=== PATIENT | male | born 1945 | race Caucasian/White ===

== ENCOUNTER 2016-03-08 07:36 | Outpatient (CLI) | payer MEDICARE | END 2016-03-08 07:37 | disposition home or self-care (01) | DX: I48.91 Unspecified atrial fibrillation (principal) ==

== ENCOUNTER 2017-05-26 08:00 | Outpatient (CLI) | payer MEDICARE ==
[2017-05-26 19:30] LABS: HB2 TOTAL 18.4 g/dL; HEMOGLOBIN A1C 0.96 g/dL; HEMOGLOBIN A1C % 6.9 % (4.6-6.2)
[2017-05-26 19:41] LABS: ALBUMIN 4.2 g/dL (3.2-5.5); ALBUMIN/GLOBULIN RATIO 1.2 (1.0-2.2); ALKALINE PHOSPHATASE 73 IU/L (42-121); ALT ALANINE AMINOTRANSFERASE 15 IU/L (10-60); AST ASPARTATE AMINOTRANSFERASE 27 IU/L (10-42); BILIRUBIN,TOTAL 0.8 mg/dL (0.2-1.0); BUN - BLOOD UREA NITROGEN 22 mg/dL (6-20); CALCIUM 9.4 mg/dL (8.5-10.3); CARBON DIOXIDE - CO2 26 mmol/L (21-32); CHLORIDE 101 mmol/L (101-111); CHOL/HDL RATIO 3.5 (<5.0); CHOLESTEROL 187 mg/dL; CREATININE 0.9 mg/dL (0.6-1.2); GFR - MDRD 83 (>89); GLUCOSE 146 mg/dL (70-100); HDL CHOLESTEROL 53 mg/dL; LDL CHOLESTEROL,CALCULATED 107 mg/dL; SODIUM 136 mmol/L (135-145); TOTAL PROTEIN 7.6 g/dL (6.7-8.2); VLDL CHOLESTEROL 27 mg/dL
[2017-05-27 13:59] LABS: HEPATITIS C ANTIBODY NON-REACTIVE (NON-REACTIVE)
== END 2017-05-26 08:01 | disposition home or self-care (01) ==
LOC: LAB.WCP 08:00
PROVIDERS: ATTEND Physician Assistant Medical
DX: E11.9 Type 2 diabetes mellitus without complications (principal); Z11.59 Encounter for screening for other viral diseases
CPT/HCPCS: 36415; 80053; 80061; 83036; 83721; 86803

== ENCOUNTER 2017-05-30 15:04 | Outpatient (CLI) | payer MEDICARE ==
[2017-05-30] MEDS ORDERED: IOPAMIDOL-300 100 ML VIAL ONE (15:23)
--- NOTE | 2017-05-30 16:04 | CT Report ---
CT CHEST WITH CONTRAST: 05/30/2017 CLINICAL INDICATION: Pulmonary nodule. COMPARISON: 06/19/2015, 12/05/2014. TECHNIQUE: Axial CT images of the chest were obtained with 80 mL Isovue 300 intravenously FINDINGS: The heart and great vessels demonstrate atherosclerotic calcifications. No hilar or mediastinal lymphadenopathy is present. The 6 mm nodule in the anterior right middle lobe is stable. Emphysema is stable. No new or enlarging pulmonary nodule is appreciated. No effusion or pneumothorax is present. Osseous structures demonstrate degenerative changes. Limited evaluation of the upper abdominal structures demonstrates normal adrenal glands. IMPRESSION: STABLE 6 MM NODULE IN THE ANTERIOR RIGHT MIDDLE LOBE. STABLE EMPHYSEMA. NO SIGNIFICANT INTERVAL CHANGE. TD: 05/30/2017 16:04
[2017-05-30] MEDS ORDERED: IOPAMIDOL-300 100 ML VIAL IVP ONE (16:12)
== END 2017-05-30 15:05 | disposition home or self-care (01) ==
LOC: DI 15:04
PROVIDERS: ATTEND Physician Assistant Medical
DX: R91.1 Solitary pulmonary nodule (principal); J43.9 Emphysema, unspecified
CPT/HCPCS: 71260; Q9967

== ENCOUNTER 2017-09-02 08:38 | Outpatient (CLI) | payer MEDICARE ==
[2017-09-02 14:09] LABS: HB2 TOTAL 16.5 g/dL; HEMOGLOBIN A1C 1.09 g/dL; HEMOGLOBIN A1C % 8.2 % (4.6-6.2)
[2017-09-02 14:10] LABS: ALBUMIN/GLOBULIN RATIO 1.2 (1.0-2.2); ALKALINE PHOSPHATASE 81 IU/L (42-121); ALT ALANINE AMINOTRANSFERASE 18 IU/L (10-60); AST ASPARTATE AMINOTRANSFERASE 25 IU/L (10-42); BILIRUBIN,TOTAL 0.9 mg/dL (0.2-1.0); BUN - BLOOD UREA NITROGEN 17 mg/dL (6-20); CALCIUM 9.4 mg/dL (8.5-10.3); CARBON DIOXIDE - CO2 26 mmol/L (21-32); CHLORIDE 99 mmol/L (101-111); CHOL/HDL RATIO 3.8 (<5.0); CHOLESTEROL 182 mg/dL; CREATININE 0.9 mg/dL (0.6-1.2); GFR - MDRD 83 (>89); GLUCOSE 158 mg/dL (70-100); HDL CHOLESTEROL 48 mg/dL; LDL CHOLESTEROL,CALCULATED 113 mg/dL; LDL/HDL RATIO 2.4 (<3.6); SODIUM 137 mmol/L (135-145); TOTAL PROTEIN 7.4 g/dL (6.7-8.2); VLDL CHOLESTEROL 21 mg/dL
== END 2017-09-02 08:39 | disposition home or self-care (01) ==
LOC: LAB.WCP 08:38
PROVIDERS: ATTEND Physician Assistant Medical
DX: E11.9 Type 2 diabetes mellitus without complications (principal)
CPT/HCPCS: 36415; 80053; 80061; 83036; 83721

== ENCOUNTER 2018-10-06 13:51 | Outpatient (CLI) | payer MEDICARE | END 2018-10-06 13:52 | disposition EMS.NT | LOC: EMS 13:51 | PROVIDERS: ATTEND Surgery | DX: Z03.89 Encounter for observation for other suspected diseases and conditions ruled out (principal) ==

== ENCOUNTER 2019-04-18 13:11 | Outpatient (CLI) | payer MEDICARE, MEDICAID | END 2019-04-18 23:59 | disposition short-term general hospital (02) | LOC: EMS 13:11 | PROVIDERS: ATTEND Surgery | DX: R06.02 Shortness of breath (principal); R07.9 Chest pain, unspecified | CPT/HCPCS: A0425; A0427 ==

== ENCOUNTER 2019-05-02 13:53 | Outpatient (CLI) | payer MEDICARE, MEDICAID ==
[2019-05-02 18:17] LABS: BASOPHILS # (AUTO) 0.1 10^3/uL (0.0-0.1); BASOPHILS % (AUTO) 0.4 %; EOSINOPHILS # (AUTO) 0.2 10^3/uL (0.0-0.7); EOSINOPHILS % (AUTO) 1.7 %; HGB - HEMOGLOBIN 14.1 g/dL (14.0-18.0); LYMPHOCYTES # (AUTO) 2.3 10^3/uL (1.5-3.5); LYMPHOCYTES % (AUTO) 19.7 %; MEAN CORPUSCULAR HEMOGLOBIN 28.6 pg (27.0-31.0); MEAN CORPUSCULAR HGB CONC 31.8 g/dL (32.0-36.0); MEAN CORPUSCULAR VOLUME 90.1 fL (80.0-94.0); MEAN PLATELET VOLUME 10.4 fL (7.4-11.4); MONOCYTES # (AUTO) 0.9 10^3/uL (0.0-1.0); MONOCYTES % (AUTO) 7.9 %; NEUTROPHILS % (AUTO) 69.6 %; PLT - PLATELET COUNT 327 10^3/uL (130-450); RED BLOOD COUNT 4.93 10^6/uL (4.70-6.10); RED CELL DISTRIBUTION WIDTH 13.8 % (12.0-15.0); WHITE BLOOD COUNT 11.4 x10^3/uL (4.8-10.8)
== END 2019-05-02 23:59 | disposition home or self-care (01) ==
LOC: LAB.WCP 13:53
PROVIDERS: ATTEND Physician Assistant Medical
DX: J44.9 Chronic obstructive pulmonary disease, unspecified (principal)
CPT/HCPCS: 36415; 85025

== ENCOUNTER 2019-05-21 15:52 | Outpatient (CLI) | payer MEDICARE, MEDICAID | END 2019-05-21 15:53 | disposition home or self-care (01) | LOC: COV 15:52 | PROVIDERS: ATTEND Family Medicine | DX: R05 Cough (principal); R50.9 Fever, unspecified | CPT/HCPCS: 81599 ==

== ENCOUNTER 2020-02-20 13:18 | Outpatient (CLI) | payer MEDICARE, MEDICAID ==
--- OUTSIDE RECORDS SUMMARY | 2020-02-27 00:54 | EXTERNAL MEDICAL SUMMARY RPT | Continuity of Care Document ---
:1945 Demographics Phone Unavailable Preferred Language Unknown Marital Status Unknown Orthodox Affiliation Unknown Race Unknown Ethnic Group Unknown Author Organization [place] Address [address] [place] [address] Phone Care Team Providers Name Role Phone PA-C Unavailable Unavailable Young Unavailable Unavailable Problems date description facility 2020-02-20 13:37 TYPE 2 DIABETES MELLITUS WITH [facility] HYPERGLYCEMIA 2020-02-20 13:37 NICOTINE DEPENDENCE, UNSPECIFIED, [facility] UNCOMPLICATED 2020-02-20 13:37 ESSENTIAL (PRIMARY) HYPERTENSION [facility] 2020-02-20 13:37 LEFT BUNDLE-BRANCH BLOCK, [facility] UNSPECIFIED 2020-02-20 13:37 SIMPLE CHRONIC BRONCHITIS [facility] 2020-02-20 13:37 SPONDYLOSIS W/O MYELOPATHY OR [facility] RADICULOPATHY, CERVI 2020-02-20 13:37 VERY LOW LEVEL OF PERSONAL HYGIENE [facility] 2020-02-20 13:37 WEAKNESS [facility] 2020-02-20 13:37 OTHER SPECIFIED ABNORMAL FINDINGS [facility]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 2020-02-20 13:37 CONTACT WITH AND (SUSPECTED) [facility] EXPOSURE TO COVID-19 Allergies date description facility Keflex [facility] LEVOFLOXACIN [facility] METRONIDAZOLE [facility] MORPHINE [facility] NO KNOWN ENVIRONMENTAL ALLERGIES [facility] PENICILLINS [facility] SULFA ANTIBIOTICS [facility] PENICILLINS [facility] NO KNOWN ALLERGIES [facility] PREGABALIN [facility] ADHESIVE \T\ TAPE [facility] NO KNOWN ENVIRONMENTAL ALLERGIES [facility] PENICILLINS [facility] Medications date description facility null [facility] null [facility] ZOLPIDEM TARTRATE [facility] ZOLPIDEM TARTRATE [facility] Results Social History date description facility [id number]
== END 2020-02-20 13:19 | disposition critical access hospital (66) ==
LOC: EMS 13:18
PROVIDERS: ATTEND Surgery
DX: R53.1 Weakness (principal); R35.0 Frequency of micturition
CPT/HCPCS: A0425; A0427

== ENCOUNTER 2020-02-20 13:37 | Emergency (ER) | payer MEDICARE, MEDICAID ==
[2020-02-20] MEDS ORDERED: IPRATROPIUM/ALBUTEROL 3 ML NEB INH STA (14:01)
[2020-02-20 14:03] LABS: BILIRUBIN,URINE NEGATIVE (NEGATIVE); GLUCOSE, URINE (UA) >=1000 mg/dL (NEGATIVE); KETONES,URINE (UA) NEGATIVE (NEGATIVE); LEUKOCYTE ESTERASE, URINE NEGATIVE (NEGATIVE); NITRITE,URINE NEGATIVE (NEGATIVE); OCCULT BLOOD,URINE SMALL (NEGATIVE); PROTEIN,URINE 100 mg/dL (NEGATIVE); UROBILINOGEN,URINE 0.2 (NORMAL) E.U./dL (NORMAL)
--- NOTE | 2020-02-20 14:03 | ED Physician Documentation ---
History of Present Illness - Stated complaint Stated Complaint: GLF - History obtained from History obtained from: Patient, EMS - Additonal information Additional information: Gentleman with COPD and diabetes although not on any meds for his diabetes presents from home where he lives with son and multiple relatives. He has had progressive weakness over months more acutely over weeks to days and today sort of crumpled down on the floor and could not get up without injury. He has no specific complaints except for chronic back and elbow pain. He does feel like he is breathing worse than normal. His meds accompany him and were reviewed, he is on a bunch of supplements, the only prescription medication is zolpidem. Nothing for his diabetes. Prehospital blood sugar was 356. Review of Systems Ten Systems: 10 systems reviewed and negative Constitutional: reports: Fatigue Cardiac: denies: Chest pain / pressure Respiratory: reports: Dyspnea, Cough GI: denies: Abdominal Pain, Nausea, Vomiting PD PAST MEDICAL HISTORY - Present Medications Home Medications: Ambulatory Orders Medication Instructions Recorded Confirmed Lisinopril [Prinivil] 10 mg PO DAILY #30 tablet 02/20/20 metFORMIN [Glucophage] 500 mg PO BIDWM #60 tablet 02/20/20 PD ED PE NORMAL - Vitals Vital signs reviewed: Yes - General General: Alert and oriented X 3, No acute distress, Other (Unkempt with a long hastings and smells of urine.) - HEENT HEENT: PERRL, EOMI, Pharynx benign - Neck Neck: Supple, no meningeal sign, No bony TTP - Cardiac Cardiac: RRR, No murmur, Other (Somewhat difficult to hear heart sounds over r honchorous and wheezy breath sounds.) - Respiratory Respiratory: No respiratory distress, Other (rhonchorous/wheezy) - Abdomen Abdomen: Soft, Non tender - Back Back: No CVA TTP, No spinal TTP - Derm Derm: Normal color, No rash - Extremities Extremities: No edema, No calf tenderness / cord, Other (Poor capillary refill in the feet but bounding pedal pulses) - Neuro Neuro: Alert and oriented X 3, No motor deficit, No sensory deficit, Normal speech, Other (Some difficulty lifting his legs off the bed due to weakness but can get them up and hold him up for 5 seconds.) Eye Opening: Spontaneous Motor: Obeys Commands Verbal: Oriented GCS Score: 15 - Psych Psych: Normal mood, Normal affect Results - Vitals Vitals: Vital Signs - 24 hr 02/20/20 02/20/20 02/20/20 14:04 14:31 16:27 Temperature 37.1 C 36.7 C Heart Rate 80 82 87 Respiratory 22 16 18 Rate Blood Pressure 179/129 H 181/137 H O2 Saturation 97 95 02/20/20 19:04 Temperature 36.3 C L Heart Rate 88 Respiratory 18 Rate Blood Pressure 163/113 H O2 Saturation 95 Oxygen O2 Source Room air - EKG (time done) 1352 Rate: Rate (enter#) (86) Rhythm: NSR [place]: Normal Intervals: LBBB (incomplete) QRS: Normal Ischemia: Normal ST segments Computer interpretation: Agree with computer - Labs Labs: Laboratory Tests 02/20/20 02/20/20 02/20/20 13:50 14:10 14:10 WBC 10.7 RBC 5.43 Hgb 16.2 Hct 48.8 MCV 89.9 MCH 29.8 MCHC 33.2 RDW 12.7 Plt Count 261 MPV 9.7 Neut # (Auto) 7.3 H Lymph # (Auto) 2.0 [place] # (Auto) 0.9 Eos # (Auto) 0.4 Baso # (Auto) 0.1 Absolute Nucleated RBC 0.00 Nucleated RBC % 0.0 VBG pH VBG pCO2 VBG pO2 VBG HCO3 VBG Total CO2 VBG O2 Saturation VBG Base Excess Sodium 139 Potassium 3.8 Chloride 97 L Carbon Dioxide 31 Anion Gap 11.0 BUN 19 Creatinine 1.1 Estimated GFR (MDRD) 66 L Glucose 320 H Calcium 9.4 Magnesium 1.6 L Total Bilirubin 0.3 AST 27 ALT 25 Alkaline Phosphatase 95 Total Creatine Kinase 327 H Troponin I High Sens Total Protein 7.2 Albumin 3.8 Globulin 3.4 Albumin/Globulin Ratio 1.1 Lipase 92 H Urine Color YELLOW Urine Clarity CLEAR Urine pH 7.0 Ur Specific Cash 1.020 Urine Protein 100 H Urine Glucose (UA) >=1000 H Urine Ketones NEGATIVE Urine Occult Blood SMALL H Urine Nitrite NEGATIVE Urine Bilirubin NEGATIVE Urine Urobilinogen 0.2 (NORMAL) Ur Leukocyte Esterase NEGATIVE Urine RBC 0-5 Urine WBC 0-3 Ur Squamous Epith Cells RARE Squamous Urine Bacteria Rare Urine Mucus Few Strands Ur Microscopic Review INDICATED Urine Culture Comments NOT INDICATED Nasal Adenovirus (PCR) Nasal B. parapertussis DNA (PCR) Nasal Coronavir 229E PCR Nasal Coronavir HKU1 PCR Nasal Coronavir NL63 PCR Nasal Coronavir OC43 PCR Nasal Enterovir/Rhinovir PCR Nasal Influenza B PCR Nasal Influenza A PCR Nasal Parainfluen 1 PCR Nasal Parainfluen 2 PCR Nasal Parainfluen 3 PCR Nasal Parainfluen 4 PCR Nasal RSV (PCR) Nasal B.pertussis DNA PCR Nasal C.pneumoniae (PCR) Campos Human Metapneumo PCR Nasal M.pneumoniae (PCR) Nasal SARS-CoV-2 (PCR) 02/20/20 02/20/20 02/20/20 14:10 14:17 14:30 WBC RBC Hgb Hct MCV MCH MCHC RDW Plt Count MPV Neut # (Auto) Lymph # (Auto) [place] # (Auto) Eos # (Auto) Baso # (Auto) Absolute Nucleated RBC Nucleated RBC % VBG pH 7.361 VBG pCO2 54.2 H VBG pO2 31.1 VBG HCO3 30.0 H VBG Total CO2 31.7 H VBG O2 Saturation 65.0 VBG Base Excess 3.2 H Sodium Potassium Chloride Carbon Dioxide Anion Gap BUN Creatinine Estimated GFR (MDRD) Glucose Calcium Magnesium Total Bilirubin AST ALT Alkaline Phosphatase Total Creatine Kinase Troponin I High Sens 41.7 H* Total Protein Albumin Globulin Albumin/Globulin Ratio Lipase Urine Color Urine Clarity Urine pH Ur Specific Cash Urine Protein Urine Glucose (UA) Urine Ketones Urine Occult Blood Urine Nitrite Urine Bilirubin Urine Urobilinogen Ur Leukocyte Esterase Urine RBC Urine WBC Ur Squamous Epith Cells Urine Bacteria Urine Mucus Ur Microscopic Review Urine Culture Comments Nasal Adenovirus (PCR) NOT DETECTED Nasal B. parapertussis DNA (PCR) NOT DETECTED Nasal Coronavir 229E PCR NOT DETECTED Nasal Coronavir HKU1 PCR NOT DETECTED Nasal Coronavir NL63 PCR NOT DETECTED Nasal Coronavir OC43 PCR NOT DETECTED Nasal Enterovir/Rhinovir PCR NOT DETECTED Nasal Influenza B PCR NOT DETECTED Nasal Influenza A PCR NOT DETECTED Nasal Parainfluen 1 PCR NOT DETECTED Nasal Parainfluen 2 PCR NOT DETECTED Nasal Parainfluen 3 PCR NOT DETECTED Nasal Parainfluen 4 PCR NOT DETECTED Nasal RSV (PCR) NOT DETECTED Nasal B.pertussis DNA PCR NOT DETECTED Nasal C.pneumoniae (PCR) NOT DETECTED Campos Human Metapneumo PCR NOT DETECTED Nasal M.pneumoniae (PCR) NOT DETECTED Nasal SARS-CoV-2 (PCR) NOT DETECTED 01/06/21 16:27 WBC RBC Hgb Hct MCV MCH MCHC RDW Plt Count MPV Neut # (Auto) Lymph # (Auto) [place] # (Auto) Eos # (Auto) Baso # (Auto) Absolute Nucleated RBC Nucleated RBC % VBG pH VBG pCO2 VBG pO2 VBG HCO3 VBG Total CO2 VBG O2 Saturation VBG Base Excess Sodium Potassium Chloride Carbon Dioxide Anion Gap BUN Creatinine Estimated GFR (MDRD) Glucose Calcium Magnesium Total Bilirubin AST ALT Alkaline Phosphatase Total Creatine Kinase Troponin I High Sens 43.3 H* Total Protein Albumin Globulin Albumin/Globulin Ratio Lipase Urine Color Urine Clarity Urine pH Ur Specific Cash Urine Protein Urine Glucose (UA) Urine Ketones Urine Occult Blood Urine Nitrite Urine Bilirubin Urine Urobilinogen Ur Leukocyte Esterase Urine RBC Urine WBC Ur Squamous Epith Cells Urine Bacteria Urine Mucus Ur Microscopic Review Urine Culture Comments Nasal Adenovirus (PCR) Nasal B. parapertussis DNA (PCR) Nasal Coronavir 229E PCR Nasal Coronavir HKU1 PCR Nasal Coronavir NL63 PCR Nasal Coronavir OC43 PCR Nasal Enterovir/Rhinovir PCR Nasal Influenza B PCR Nasal Influenza A PCR Nasal Parainfluen 1 PCR Nasal Parainfluen 2 PCR Nasal Parainfluen 3 PCR Nasal Parainfluen 4 PCR Nasal RSV (PCR) Nasal B.pertussis DNA PCR Nasal C.pneumoniae (PCR) Campos Human Metapneumo PCR Nasal M.pneumoniae (PCR) Nasal SARS-CoV-2 (PCR) PD MEDICAL DECISION MAKING - ED course ED course: [employer] respiratory panel ordered to rapidly test specifically for COVID-19 in this patient who is expected to be hospitalized 74yo gentleman with COPD and untreated diabetes presents the emergency department with generalized weakness and some shortness of breath consistent with COPD. He denies chest pain. Work-up demonstrates normal CBC, mild CO2 retention without evidence of acuity, elevated blood sugar and borderline troponin. I offered hospitalization for observation especially in light of the borderline troponin, he refused. We agreed at least to repeat the troponin after couple of hours and to have him talk with social work about everything that is been going on and his weakness. He also is found to have significant degenerative disease in his neck with multiple levels of disc space narrowing which may be contributing to his weakness. That said he does not appear to be particularly weak here, he is able to sit up without assistance, sit up on the side of the bed then. His family, specifically his son and [id number] arrived. They are his caregivers and have been since taking him in from homelessness 4 years ago. He really does not go to the doctor ever, continues to smoke heavily, not pay attention to his diabetes at all by taking medications or controlling his diet. I asked him when he last showered and he said a week or 2 ago, the son said it was September of last year. Prior to that it had probably been another year. APS is already involved. The son is frustrated and fed up. Does not really want to care for him anymore. The patient seems uninvolved in his own self interest in care but does seem competent to make decisions. A 2nd troponin was done and basically flat. He obviously needs long-term blood pressure control, diabetes control, and to quit smoking. Social work is working with him. Patient was uninterested in any disposition other than going home. His son is fed up with him but will take him back in. See PHYTOPATHOLOGIST notes. Departure - Departure Disposition: Home, Self Care Clinical Impression: Weakness, Uncontrolled hypertension, Tobacco abuse, Deficit of personal bathing and hygiene COPD (chronic obstructive pulmonary disease) Qualifiers: COPD type: chronic bronchitis Chronic bronchitis type: simple Qualified Code(s): J41.0 - Simple chronic bronchitis Uncontrolled diabetes mellitus Qualifiers: Diabetes mellitus type: type 2 Glycemic state: with hyperglycemia Qualified Code(s): E11.65 - Type 2 diabetes mellitus with hyperglycemia Condition: Stable Record reviewed to determine appropriate education?: Yes Instructions: COPD Dc, ED Hyperglycemia Diabetic Follow-Up: Maribel Blue ARNP, [employer] [Credentialed Staff Provider] - Prescriptions: metFORMIN [Glucophage] 500 mg PO BIDWM #60 tablet Lisinopril [Prinivil] 10 mg PO DAILY #30 tablet Comments: Our on-call provider for follow-up today is listed on this form. Call her tomorrow to arrange for next available follow-up appointment. It is important to quit smoking, recommend bathing at least occasionally. Returning as needed if worse or for new symptoms develop. Also recommend quit smoking. Discharge Date/Time: 02/20/20 19:05
[2020-02-20 14:15] LABS: BACTERIA,URINE Rare /HPF (None Seen); CLARITY,URINE CLEAR (CLEAR); MUCUS,URINE Few Strands; RBC,URINE 0-5 /HPF (0-5); SQUAMOUS EPITHELIAL CELL,UR RARE Squamous (<= Few); WBC,URINE 0-3 /HPF (0-3)
[2020-02-20 14:20] LABS: BASOPHILS # (AUTO) 0.1 10^3/uL (0.0-0.1); EOSINOPHILS # (AUTO) 0.4 10^3/uL (0.0-0.7); EOSINOPHILS % (AUTO) 3.3 %; HCT - HEMATOCRIT 48.8 % (42.0-52.0); HGB - HEMOGLOBIN 16.2 g/dL (14.0-18.0); LYMPHOCYTES % (AUTO) 18.9 %; MEAN CORPUSCULAR HEMOGLOBIN 29.8 pg (27.0-31.0); MEAN CORPUSCULAR HGB CONC 33.2 g/dL (32.0-36.0); MEAN CORPUSCULAR VOLUME 89.9 fL (80.0-94.0); MEAN PLATELET VOLUME 9.7 fL (7.4-11.4); MONOCYTES # (AUTO) 0.9 10^3/uL (0.0-1.0); MONOCYTES % (AUTO) 8.1 %; NEUTROPHILS # (AUTO) 7.3 10^3/uL (1.5-6.6); NEUTROPHILS % (AUTO) 68.4 %; PLT - PLATELET COUNT 261 10^3/uL (130-450); RED BLOOD COUNT 5.43 10^6/uL (4.70-6.10); RED CELL DISTRIBUTION WIDTH 12.7 % (12.0-15.0); WHITE BLOOD COUNT 10.7 x10^3/uL (4.8-10.8)
[2020-02-20 14:26] LABS: VBG PCO2 54.2 mmHg (41-51); VBG PH 7.361 (7.31-7.41); VBG PO2 31.1 mmHg (25-47); VBG TOTAL CO2 31.7 mmol/L (24-29)
[2020-02-20 14:27] LABS: VBG BASE EXCESS 3.2 mmol/L (-2 - +2)
--- NOTE | 2020-02-20 14:32 | XRAY Report ---
PROCEDURE: Chest 1 View X-Ray INDICATIONS: weak, dyspnea TECHNIQUE: One view of the chest was acquired. COMPARISON: CT chest 05/30/2017. CXR 05/26/2017. FINDINGS: Surgical changes and devices: None. Lungs and pleura: No pleural effusions or pneumothorax. Lungs appear clear. Emphysematous change. Mediastinum: Mediastinal contours appear normal. Heart size is normal. Bones and chest wall: No suspicious bony lesions. Overlying soft tissues appear unremarkable. IMPRESSION: No acute cardiopulmonary abnormality identified. Reviewed by: Javan South MD on 02/20/2020 1:31 PM [facility] Approved by: Javan South MD on 02/20/2020 1:31 PM [facility] Station ID: [id number]
[2020-02-20 14:53] LABS: ALBUMIN 3.8 g/dL (3.2-5.5); ALBUMIN/GLOBULIN RATIO 1.1 (1.0-2.2); BILIRUBIN,TOTAL 0.3 mg/dL (0.2-1.0); CALCIUM 9.4 mg/dL (8.5-10.3); CREATININE 1.1 mg/dL (0.6-1.2); MAGNESIUM 1.6 mg/dL (1.7-2.8); POTASSIUM 3.8 mmol/L (3.5-5.0); TOTAL PROTEIN 7.2 g/dL (6.7-8.2)
--- NOTE | 2020-02-20 15:17 | CT Report ---
PROCEDURE: HEAD WO INDICATIONS: fall, weakness TECHNIQUE: Noncontrast 4.5 mm thick angled axial sections acquired from the foramen magnum to the vertex. For r adiation dose reduction, the following was used: automated exposure control, adjustment of mA and/or kV according to patient size. COMPARISON: Correlation is made with the accompanying cervical spine CT, 02/20/2020. FINDINGS: Image quality: Excellent. CSF spaces: Basal cisterns are patent. No extra-axial fluid collections. Ventricles are normal in size and shape. Brain: No midline shift. No intracranial masses or hemorrhage. Luis-white matter interface is norm al. Skull and face: Calvarium and visualized facial bones are intact, without suspicious lesions. Sinuses: Visualized sinuses and mastoids are clear. IMPRESSION: No intracranial hemorrhage is seen. No significant intracranial abnormality is seen. If there is strong clinical concern for a stroke, please consider a dedicated brain MRI for further e valuation (assuming that there is no contraindication to MRI). Reviewed by: Reza Sandhu MD on 02/20/2020 2:[address] [facility] Approved by: Reza Sandhu MD on 02/20/2020 2:[address] [facility] Station ID: [id number]
--- NOTE | 2020-02-20 15:19 | CT Report ---
PROCEDURE: CERVICAL SPINE WO INDICATIONS: fall, weakness TECHNIQUE: Noncontrast 3 mm thick sections acquired from the skull base to the T4 level. Sagittal and coronal r eformats were then constructed. For radiation dose reduction, the following was used: automated exp osure control, adjustment of mA and/or kV according to patient size. COMPARISON: Correlation is made with the accompanying head CT 02/20/2020. Correlation is also made w ith the accompanying chest films, 02/20/2020. FINDINGS: Image quality: Excellent. Bones: No fractures or dislocations. Visualized superior ribs are intact. Advanced degenerative changes are seen. There is at least moderate disc space narrowing seen at the C 3-C4 level, with moderate to severe disc space narrowing at C4-C5, C5-C6, C6-C7, and C7-T1. Posterior directed endplate osteophytes are seen, which are worst at C5-C6. Bridging anterior osteophytes are seen from at least C4-T1. Focal degenerative change can also be seen involving the C1-C2 interface an teriorly. Soft tissues: Prevertebral soft tissues are normal in thickness. No paravertebral hematomas. No ap ical pneumothoraces. Dense episodic calcification can be seen involving the carotid bifurcation rob ons. IMPRESSION: No acute fractures are seen. Advanced degenerative changes are seen. Reviewed by: Reza Sandhu MD on 02/20/2020 2:17 PM [facility] Approved by: Reza Sandhu MD on 02/20/2020 2:17 PM [facility] Station ID: [id number]
[2020-02-20 17:56] LABS: B. PARAPERTUSSIS- RESP PCR PAN NOT DETECTED; B. PERTUSSIS- RESP PCR PANEL NOT DETECTED; C. PNEUMONIAE- RESP PCR PANEL NOT DETECTED; CORONAVIRUS 229E-RESP PCR NOT DETECTED; CORONAVIRUS HKU1-RESP PCR NOT DETECTED; CORONAVIRUS NL63-RESP PCR NOT DETECTED; CORONAVIRUS OC43-RESP PCR NOT DETECTED; HUMAN METAPNEUMOVIRUS NOT DETECTED; INFLUENZA A- RESP PCR PANEL NOT DETECTED; INFLUENZA B - RESP PCR PANEL NOT DETECTED; M. PNEUMONIAE- RESP PCR PANEL NOT DETECTED; PARAINFLUENZA VIRUS 1 NOT DETECTED; PARAINFLUENZA VIRUS 2 NOT DETECTED; PARAINFLUENZA VIRUS 3 NOT DETECTED; PARAINFLUENZA VIRUS 4 NOT DETECTED; RHINOVIRUS/ENTEROVIRUS NOT DETECTED; RSV- RESP PCR PANEL NOT DETECTED; SARS-CoV-2 -RESP PCR PANEL NOT DETECTED
[2020-02-20 19:05] VITALS: BP 163/113
--- OUTSIDE RECORDS SUMMARY | 2020-02-27 00:47 | EXTERNAL MEDICAL SUMMARY RPT | Continuity of Care Document ---
:1945 Demographics Phone Unavailable Preferred Language Unknown Marital Status Unknown Scientologist Affiliation Unknown Race Unknown Ethnic Group Unknown Author Organization [place] Address [address] [place] [address] Phone Care Team Providers Name Role Phone Young Unavailable Unavailable PA-C Unavailable Unavailable Problems date description facility 2020-02-20 13:37 TYPE 2 DIABETES MELLITUS WITH [facility] HYPERGLYCEMIA 2020-02-20 13:37 NICOTINE DEPENDENCE, UNSPECIFIED, [facility] UNCOMPLICATED 2020-02-20 13:37 ESSENTIAL (PRIMARY) HYPERTENSION [facility] 2020-02-20 13:37 LEFT BUNDLE-BRANCH BLOCK, [facility] UNSPECIFIED 2020-02-20 13:37 SIMPLE CHRONIC BRONCHITIS [facility] 2020-02-20 13:37 SPONDYLOSIS W/O MYELOPATHY OR [facility] RADICULOPATHY, CERVI 2020-02-20 13:37 VERY LOW LEVEL OF PERSONAL HYGIENE [facility] 2020-02-20 13:37 WEAKNESS [facility] 2020-02-20 13:37 OTHER SPECIFIED 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 2020-02-20 13:37 CONTACT WITH AND (SUSPECTED) [facility] EXPOSURE TO COVID-19 Allergies date description facility Keflex [facility] LEVOFLOXACIN [facility] METRONIDAZOLE [facility] MORPHINE [facility] NO KNOWN ENVIRONMENTAL ALLERGIES [facility] PENICILLINS [facility] SULFA ANTIBIOTICS [facility] PENICILLINS [facility] NO KNOWN ALLERGIES [facility] PREGABALIN [facility] ADHESIVE \T\ TAPE [facility] NO KNOWN ENVIRONMENTAL ALLERGIES [facility] PENICILLINS [facility] Medications [facility] description facility null [facility] null [facility] ZOLPIDEM TARTRATE [facility] ZOLPIDEM TARTRATE [facility] Results Social History date description facility [id number]
== END 2020-02-20 19:05 | disposition home or self-care (01) ==
LOC: EDUNIT# → ED 13:37
DX: R53.1 Weakness (principal); I10 Essential (primary) hypertension; J41.0 Simple chronic bronchitis; F17.200 Nicotine dependence, unspecified, uncomplicated; E11.65 Type 2 diabetes mellitus with hyperglycemia; Z20.822 Contact with and (suspected) exposure to COVID-19; R46.0 Very low level of personal hygiene; R79.89 Other specified abnormal findings of blood chemistry; I44.7 Left bundle-branch block, unspecified; M47.812 Spondylosis without myelopathy or radiculopathy, cervical region
CPT/HCPCS: 0202U; 36415; 80053; 81001; 81003; 82550; 82803; 83690; 83735; 84484; 85025; 87086; 93005; 94640; 99284; 99285

== ENCOUNTER 2020-07-03 08:00 | Outpatient (CLI) | payer MEDICARE, MEDICAID ==
[2020-07-03 18:09] LABS: ALBUMIN 3.5 g/dL (3.2-5.5); ALKALINE PHOSPHATASE 110 IU/L (42-121); ALT ALANINE AMINOTRANSFERASE 15 IU/L (10-60); AST ASPARTATE AMINOTRANSFERASE 25 IU/L (10-42); BILIRUBIN,TOTAL 0.8 mg/dL (0.2-1.0); BUN - BLOOD UREA NITROGEN 20 mg/dL (6-20); CALCIUM 9.7 mg/dL (8.5-10.3); CARBON DIOXIDE - CO2 26 mmol/L (21-32); CHLORIDE 101 mmol/L (101-111); CHOL/HDL RATIO 4.5 (<5.0); CHOLESTEROL 216 mg/dL; GFR - MDRD 73 (>89); GLUCOSE 340 mg/dL (70-100); HDL CHOLESTEROL 48 mg/dL; LDL CHOLESTEROL,CALCULATED 151 mg/dL; LDL/HDL RATIO 3.1 (<3.6); POTASSIUM 4.8 mmol/L (3.5-5.0); SODIUM 139 mmol/L (135-145); TOTAL PROTEIN 7.1 g/dL (6.7-8.2); TRIGLYCERIDES 87 mg/dL; VLDL CHOLESTEROL 17 mg/dL
[2020-07-03 18:19] LABS: THYROID STIMULATING HORMONE 1.85 uIU/mL (0.34-5.60)
== END 2020-07-03 23:59 | disposition home or self-care (01) ==
LOC: LAB.WCP 08:00
PROVIDERS: ATTEND Physician Assistant Medical
DX: E11.9 Type 2 diabetes mellitus without complications (principal); I48.0 Paroxysmal atrial fibrillation; R91.8 Other nonspecific abnormal finding of lung field
CPT/HCPCS: 36415; 80053; 80061; 82043; 82570; 83036; 83721; 84443; 85025

== ENCOUNTER 2020-09-12 10:11 | Outpatient (CLI) | payer MEDICARE, MEDICAID | END 2020-09-12 10:12 | disposition EMS.NT | LOC: EMS 10:11 | DX: Z03.89 Encounter for observation for other suspected diseases and conditions ruled out (principal) ==

== ENCOUNTER 2020-10-10 11:05 | Outpatient (CLI) | payer MEDICARE, MEDICAID | END 2020-10-10 11:06 | disposition critical access hospital (66) | LOC: EMS 11:05 | DX: R41.82 Altered mental status, unspecified (principal) | CPT/HCPCS: A0425; A0427 ==

== ENCOUNTER 2020-10-10 11:25 | Inpatient (IN) | payer MEDICARE, MEDICAID ==
--- NOTE | 2020-10-10 11:45 | ED Physician Documentation ---
PD HPI SKIN - Stated complaint Stated Complaint: SICK - History obtained from History obtained from: Patient, EMS PD PAST MEDICAL HISTORY - Present Medications Home Medications: Ambulatory Orders Medication Instructions Recorded Confirmed lisinopriL [Prinivil] 10 mg PO DAILY #30 tablet 02/20/20 metFORMIN [Glucophage] 500 mg PO BIDWM #60 tablet 02/20/20 Results - Vitals Vitals: Oxygen O2 Source Room air
--- NOTE | 2020-10-10 12:15 | ED Physician Documentation ---
History of Present Illness - Stated complaint Stated Complaint: SICK - History obtained from History obtained from: EMS - Additonal information Additional information: 75-year-old gentleman presents by ambulance from home. Reportedly he has been sitting in the same chair for the last 2 months and not moving. Today he became altered or at least we think it was today, family is not here and arrival. He has a sacral and calcaneal pressure ulcers. Was growing maggots in the buttocks. On my evaluation these have already been cleaned off as he has gone through the shower on the way in. He has a history of COPD and diabetes. Unclear if he is taking any medications but strongly presume medical noncompliance given the circumstances. Review of Systems Unable to obtain: Confused PD PAST MEDICAL HISTORY - Present Medications Home Medications: Ambulatory Orders Medication Instructions Recorded Confirmed lisinopriL [Prinivil] 10 mg PO DAILY #30 tablet 02/20/20 metFORMIN [Glucophage] 500 mg PO BIDWM #60 tablet 02/20/20 - Allergies Allergies/Adverse Reactions: Allergies Allergy/AdvReac Type Severity Reaction Status Date / Time No Known Drug Allergies Allergy Verified 10/10/20 12:36 PD ED PE NORMAL - Vitals Vital signs reviewed: Yes - General General: Other (He is alert and oriented to person and place but not time or events he appears ill, slightly encephalopathic.) - HEENT HEENT: PERRL, EOMI - Neck Neck: Supple, no meningeal sign, No bony TTP - Cardiac Cardiac: RRR, No murmur - Respiratory Respiratory: No respiratory distress, Clear bilaterally - Abdomen Abdomen: Normal bowel sounds, Soft, Non tender - Derm Derm: Other (Some scattered ulcers on the lower abdominal wall and intertriginous area with skin breakdown. There is a very large grade 2 pressure ulcer mostly over the right buttock and upper hamstring. There are pressure ulcers, grade 2 on both heels. Significant nicotine staining on the hands. ) - Extremities Extremities: No deformity, Other (Dusky feet with poor cap refill and some pedal edema.) - Neuro Eye Opening: To Voice Motor: Obeys Commands Verbal: Confused GCS Score: 13 Results - Vitals Vitals: Vital Signs - 24 hr 10/10/20 10/10/20 11:23 14:20 Temperature 35.9 C L Heart Rate 83 100 Respiratory 16 29 H Rate Blood Pressure 111/93 H 117/74 O2 Saturation 87 L 95 Oxygen O2 Source Nasal cannula - EKG (time done) 1233 Rate: Rate (enter#) (104) Rhythm: Sinus tachycardia (w pacs) Intervals: Other (IVCD) Ischemia: T wave inversion (anterior) Compare to prior EKG: Changed from prior EKG (Comp with 02/20/20, increased IVCD with antrior T-wave chgs concerning for ischemia.) Computer interpretation: Agree with computer - Labs Labs: Laboratory Tests 10/10/20 10/10/20 10/10/20 12:32 12:32 12:32 WBC 10.7 RBC 6.87 H Hgb 19.4 H Hct 62.3 H MCV 90.7 MCH 28.2 MCHC 31.1 L RDW 15.1 H Plt Count 397 MPV 10.3 Neut # (Auto) 8.2 H Lymph # (Auto) 0.9 L [place] # (Auto) 1.3 H Eos # (Auto) 0.1 Baso # (Auto) 0.1 Absolute Nucleated RBC 0.00 Nucleated RBC % 0.0 PT 14.7 H INR 1.3 H VBG pH VBG pCO2 VBG pO2 VBG HCO3 VBG Total CO2 VBG O2 Saturation VBG Base Excess Sodium 138 Potassium 5.4 H Chloride 93 L Carbon Dioxide 28 Anion Gap 17.0 H BUN 63 H Creatinine 1.4 H Estimated GFR (MDRD) 50 L Glucose 452 H Lactic Acid Calcium 9.8 Phosphorus 5.5 H Magnesium 2.1 Total Bilirubin 1.0 AST 28 ALT 24 Alkaline Phosphatase 161 H Troponin I High Sens Total Protein 8.1 Albumin 3.3 Globulin 4.8 H Albumin/Globulin Ratio 0.7 L Lipase 53 H Nasal Adenovirus (PCR) Nasal B. parapertussis DNA (PCR) Nasal Coronavir 229E PCR Nasal Coronavir HKU1 PCR Nasal Coronavir NL63 PCR Nasal Coronavir OC43 PCR Nasal Enterovir/Rhinovir PCR Nasal Influenza B PCR Nasal Influenza A PCR Nasal Parainfluen 1 PCR Nasal Parainfluen 2 PCR Nasal Parainfluen 3 PCR Nasal Parainfluen 4 PCR Nasal RSV (PCR) Nasal B.pertussis DNA PCR Nasal C.pneumoniae (PCR) Campos Human Metapneumo PCR Nasal M.pneumoniae (PCR) Nasal SARS-CoV-2 (PCR) Ethyl Alcohol < 5.0 08/10/10/20 10/10/20 12:32 12:32 12:32 WBC RBC Hgb Hct MCV MCH MCHC RDW Plt Count MPV Neut # (Auto) Lymph # (Auto) [place] # (Auto) Eos # (Auto) Baso # (Auto) Absolute Nucleated RBC Nucleated RBC % PT INR VBG pH 7.219 L VBG pCO2 63.7 H VBG pO2 28.7 VBG HCO3 25.4 VBG Total CO2 27.4 VBG O2 Saturation 45.4 L VBG Base Excess -4.3 L Sodium Potassium Chloride Carbon Dioxide Anion Gap BUN Creatinine Estimated GFR (MDRD) Glucose Lactic Acid 3.3 H* Calcium Phosphorus Magnesium Total Bilirubin AST ALT Alkaline Phosphatase Troponin I High Sens 84.7 H* Total Protein Albumin Globulin Albumin/Globulin Ratio Lipase Nasal Adenovirus (PCR) Nasal B. parapertussis DNA (PCR) Nasal Coronavir 229E PCR Nasal Coronavir HKU1 PCR Nasal Coronavir NL63 PCR Nasal Coronavir OC43 PCR Nasal Enterovir/Rhinovir PCR Nasal Influenza B PCR Nasal Influenza A PCR Nasal Parainfluen 1 PCR Nasal Parainfluen 2 PCR Nasal Parainfluen 3 PCR Nasal Parainfluen 4 PCR Nasal RSV (PCR) Nasal B.pertussis DNA PCR Nasal C.pneumoniae (PCR) Campos Human Metapneumo PCR Nasal M.pneumoniae (PCR) Nasal SARS-CoV-2 (PCR) Ethyl Alcohol 10/10/20 13:05 WBC RBC Hgb Hct MCV MCH MCHC RDW Plt Count MPV Neut # (Auto) Lymph # (Auto) [place] # (Auto) Eos # (Auto) Baso # (Auto) Absolute Nucleated RBC Nucleated RBC % PT INR VBG pH VBG pCO2 VBG pO2 VBG HCO3 VBG Total CO2 VBG O2 Saturation VBG Base Excess Sodium Potassium Chloride Carbon Dioxide Anion Gap BUN Creatinine Estimated GFR (MDRD) Glucose Lactic Acid Calcium Phosphorus Magnesium Total Bilirubin AST ALT Alkaline Phosphatase Troponin I High Sens Total Protein Albumin Globulin Albumin/Globulin Ratio Lipase Nasal Adenovirus (PCR) NOT DETECTED Nasal B. parapertussis DNA (PCR) NOT DETECTED Nasal Coronavir 229E PCR NOT DETECTED Nasal Coronavir HKU1 PCR NOT DETECTED Nasal Coronavir NL63 PCR NOT DETECTED Nasal Coronavir OC43 PCR NOT DETECTED Nasal Enterovir/Rhinovir PCR NOT DETECTED Nasal Influenza B PCR NOT DETECTED Nasal Influenza A PCR NOT DETECTED Nasal Parainfluen 1 PCR NOT DETECTED Nasal Parainfluen 2 PCR NOT DETECTED Nasal Parainfluen 3 PCR NOT DETECTED Nasal Parainfluen 4 PCR NOT DETECTED Nasal RSV (PCR) NOT DETECTED Nasal B.pertussis DNA PCR NOT DETECTED Nasal C.pneumoniae (PCR) NOT DETECTED Campos Human Metapneumo PCR NOT DETECTED Nasal M.pneumoniae (PCR) NOT DETECTED Nasal SARS-CoV-2 (PCR) NOT DETECTED Ethyl Alcohol - Rads (name of study) pCXR Radiology: EMP read contemporaneously (Small retrocardiac opacity, 2nd cxr shows RIJ CVC in the lower SVC) CT of the head without contrast limited by motion but without gross abnormality. Radiology: EMP read contemporaneously CT Chest Radiology: EMP read contemporaneously (Left retrocardiac opacities c/w aspiration/atalectasis or early PNA.) CT A/P Radiology: EMP read contemporaneously (NAD) Procedures - Central Line Central Line Preparation: Unable to obtain consent, Time out completed, Ultrasound used, Sterile prep and drape Central line location: Right IJ Central line type: Triple lumen (7F) Central line aftercare: Chlorhexidine disc placed, Secured, No complications, Bundle checklist complete, Pt tolerated well PD MEDICAL DECISION MAKING - ED course ED course: This is a 75-year-old gentleman who presents by ambulance with significant issues related to not having gotten out of his chair for the last 2 months and probably alcohol and tobacco use. He is now encephalopathic, and tachycardic and at times tachypneic and hypoxemic requiring supplemental oxygen. He was difficult for IV access and a central line was placed. Labs were drawn and are notable for hemoconcentration with elevated hemoglobin and very elevated BUN, modest elevation of the troponin with some concerning ischemic changes on his EKG, but probably due to demand ischemia related to underlying illness and severe dehydration. He has acute kidney injury. He was found to have a left retrocardiac pneumonia. He was cultured up and given Rocephin and Zithromax. Also thiamine and 2 L of normal saline. I discussed the case by phone with his son at length and asked the nursing home social worker to reach out to the son as well. And spoke with Dr. Marcelo for admission at 2:55 PM. - Critical Care Time(min): 45 Time Includes: Direct patient care, Review records, Reassess patient, Document care, Coordinate care, Medical consult, Family consult for tx dec (son by phone) Data interpretation: Labs, Pulse ox Procedures excluded from critical care time: Central IV, EKG - Sepsis Event Sepsis Onset Date: 10/10/20 Sepsis Onset Time: 14:00 Current Stage of Sepsis: Sepsis Initial Hypotension: Not hypotensive Possible source of Sepsis: Pulmonary Mental/Cognitive Status: Confused, Lethargic, Change from baseline Reason for not giving 30ml/kg crystalloid fluids: Not in septic shock Capillary refill: Less than 2 seconds Peripheral Pulse Strength: 2+ Slightly Diminished Peripheral Pulse Location: Radial Departure - Departure Disposition: [facility] DC/Xfer Clinical Impression: Tobacco abuse, Deficit of personal bathing and hygiene, Encephalopathy acute Uncontrolled diabetes mellitus Qualifiers: Diabetes mellitus type: type 2 Glycemic state: with hyperglycemia Qualified Code(s): E11.65 - Type 2 diabetes mellitus with hyperglycemia Pneumonia Qualifiers: Pneumonia type: due to unspecified organism Laterality: left Lung location: lower lobe of lung Qualified Code(s): J18.9 - Pneumonia, unspecified organism Sepsis Qualifiers: Sepsis type: sepsis due to unspecified organism Sepsis acute organ dysfunction status: with acute organ dysfunction Severe sepsis acute organ dysfunction type: encephalopathy Severe sepsis shock status: without septic shock Qualified Code(s): A41.9 - Sepsis, unspecified organism Condition: Serious
--- NOTE | 2020-10-10 12:40 | XRAY Report ---
PROCEDURE: Chest 1 View X-Ray INDICATIONS: altered TECHNIQUE: One view of the chest was acquired. COMPARISON: Chest radiographs 02/20/2020 FINDINGS: Surgical changes and devices: None. Lungs and pleura: No pleural effusions or pneumothorax. Small opacity at the retrocardiac left lung base may represent atelectasis, aspiration, or pneumonia. Mediastinum: Mediastinal contours appear normal. Heart size is normal. Bones and chest wall: No suspicious bony lesions. Overlying soft tissues appear unremarkable. IMPRESSION: Small retrocardiac opacity may represent atelectasis, aspiration, or pneumonia. Reviewed by: Abdi Beltran MD on 10/10/2020 12:39 PM PDT Approved by: Abdi Beltran MD on 10/10/2020 12:39 PM PDT Station ID: [id number]
[2020-10-10 12:42] LABS: BASOPHILS # (AUTO) 0.1 10^3/uL (0.0-0.1); BASOPHILS % (AUTO) 0.9 %; EOSINOPHILS # (AUTO) 0.1 10^3/uL (0.0-0.7); EOSINOPHILS % (AUTO) 0.7 %; HCT - HEMATOCRIT 62.3 % (42.0-52.0); HGB - HEMOGLOBIN 19.4 g/dL (14.0-18.0); LYMPHOCYTES # (AUTO) 0.9 10^3/uL (1.5-3.5); LYMPHOCYTES % (AUTO) 8.5 %; MEAN CORPUSCULAR HEMOGLOBIN 28.2 pg (27.0-31.0); MEAN CORPUSCULAR HGB CONC 31.1 g/dL (32.0-36.0); MEAN CORPUSCULAR VOLUME 90.7 fL (80.0-94.0); MEAN PLATELET VOLUME 10.3 fL (7.4-11.4); MONOCYTES # (AUTO) 1.3 10^3/uL (0.0-1.0); MONOCYTES % (AUTO) 12.2 %; NEUTROPHILS # (AUTO) 8.2 10^3/uL (1.5-6.6); NEUTROPHILS % (AUTO) 76.9 %; PLT - PLATELET COUNT 397 10^3/uL (130-450); RED BLOOD COUNT 6.87 10^6/uL (4.70-6.10); RED CELL DISTRIBUTION WIDTH 15.1 % (12.0-15.0); WHITE BLOOD COUNT 10.7 x10^3/uL (4.8-10.8)
[2020-10-10 12:47] LABS: VBG BASE EXCESS -4.3 mmol/L ({null, -2 - +2}); VBG HCO3 25.4 mmol/L (23-28); VBG OXYGEN SATURATION 45.4 % (60-80); VBG PCO2 63.7 mmHg (41-51); VBG PH 7.219 (7.31-7.41); VBG PO2 28.7 mmHg (25-47); VBG TOTAL CO2 27.4 mmol/L (24-29)
[2020-10-10 12:56] LABS: INR 1.3 (0.8-1.2); PT - PROTHROMBIN TIME 14.7 secs (9.9-12.6)
[2020-10-10 12:58] LABS: ALBUMIN 3.3 g/dL (3.2-5.5); ALBUMIN/GLOBULIN RATIO 0.7 (1.0-2.2); ALKALINE PHOSPHATASE 161 IU/L (42-121); ALT ALANINE AMINOTRANSFERASE 24 IU/L (10-60); AST ASPARTATE AMINOTRANSFERASE 28 IU/L (10-42); BUN - BLOOD UREA NITROGEN 63 mg/dL (6-20); CALCIUM 9.8 mg/dL (8.5-10.3); CARBON DIOXIDE - CO2 28 mmol/L (21-32); CHLORIDE 93 mmol/L (101-111); CREATININE 1.4 mg/dL (0.6-1.2); ETOH - ETHANOL < 5.0 mg/dL; GFR - MDRD 50 (>89); GLUCOSE 452 mg/dL (70-100); LIPASE 53 U/L (22-51); MAGNESIUM 2.1 mg/dL (1.7-2.8); PHOSPHORUS 5.5 mg/dL (2.5-4.6); POTASSIUM 5.4 mmol/L (3.5-5.0); SODIUM 138 mmol/L (135-145); TOTAL PROTEIN 8.1 g/dL (6.7-8.2)
[2020-10-10] MEDS ORDERED: IOPAMIDOL-300 50 ML VIAL ONE (13:08)
[2020-10-10] MEDS ORDERED: SODIUM CHLORIDE 0.9% 2,000 ML IV STA (13:27)
[2020-10-10] MEDS ORDERED: cefTRIAXone 1 GM in SODIUM CHLORIDE 0.9% MINIBAG 100 ML IV STA (13:27)
[2020-10-10] MEDS ORDERED: AZITHROMYCIN INJ 500 MG in SODIUM CHLORIDE 0.9% 250 ML IV STA (13:27)
[2020-10-10] MEDS ORDERED: THIAMINE INJ 100 MG in SODIUM CHLORIDE 0.9% 50 ML IV STA (13:28)
--- NOTE | 2020-10-10 13:39 | XRAY Report ---
PROCEDURE: Chest for Line Placement INDICATIONS: RIJ CVC TECHNIQUE: One view of the chest was acquired. COMPARISON: Chest radiographs 10/10/2020 at approximately 12:00 PM. FINDINGS: Surgical changes and devices: Interval placement of right internal jugular catheter with catheter tip projecting over the distal superior vena cava.. Lungs and pleura: No pleural effusions or pneumothorax. Left retrocardiac opacity does not appear si gnificantly changed with elevation of the left hemidiaphragm again noted. The pulmonary vasculature a ppears prominent. Mediastinum: Mediastinal contours appear normal. Heart size is normal. Aortic atherosclerotic calc ifications. Bones and chest wall: No suspicious bony lesions. Overlying soft tissues appear unremarkable. IMPRESSION: Interval placement of right internal jugular catheter with catheter tip projecting over the lower sup erior vena cava. Reviewed by: Abdi Beltran MD on 10/10/2020 1:38 PM PDT Approved by: Abdi Beltran MD on 10/10/2020 1:38 PM PDT Station ID: [id number]
[2020-10-10] MEDS ORDERED: INSULIN REGULAR HUMAN 100 UNIT/1 ML 10 ML MDV IVP STA (13:44)
[2020-10-10 13:59] LABS: B. PARAPERTUSSIS- RESP PCR PAN NOT DETECTED; B. PERTUSSIS- RESP PCR PANEL NOT DETECTED; C. PNEUMONIAE- RESP PCR PANEL NOT DETECTED; CORONAVIRUS 229E-RESP PCR NOT DETECTED; CORONAVIRUS HKU1-RESP PCR NOT DETECTED; CORONAVIRUS NL63-RESP PCR NOT DETECTED; CORONAVIRUS OC43-RESP PCR NOT DETECTED; HUMAN METAPNEUMOVIRUS NOT DETECTED; INFLUENZA A- RESP PCR PANEL NOT DETECTED; INFLUENZA B - RESP PCR PANEL NOT DETECTED; M. PNEUMONIAE- RESP PCR PANEL NOT DETECTED; PARAINFLUENZA VIRUS 1 NOT DETECTED; PARAINFLUENZA VIRUS 2 NOT DETECTED; PARAINFLUENZA VIRUS 3 NOT DETECTED; PARAINFLUENZA VIRUS 4 NOT DETECTED; RHINOVIRUS/ENTEROVIRUS NOT DETECTED; RSV- RESP PCR PANEL NOT DETECTED; SARS-CoV-2 -RESP PCR PANEL NOT DETECTED
[2020-10-10] MEDS ORDERED: IOPAMIDOL-300 50 ML VIAL IVP ONE (14:12)
--- NOTE | 2020-10-10 14:23 | CT Report ---
PROCEDURE: HEAD WO INDICATIONS: altered TECHNIQUE: Noncontrast 4.5 mm thick angled axial sections acquired from the foramen magnum to the vertex. For r adiation dose reduction, the following was used: automated exposure control, adjustment of mA and/or kV according to patient size. COMPARISON: None. FINDINGS: Image quality: Markedly suboptimal secondary to severe motion artifact.. CSF spaces: Basal cisterns are patent. No extra-axial fluid collections. Ventricles are normal in size and shape. Brain: No midline shift. No intracranial masses or hemorrhage. Luis-white matter interface is norm al. Skull and face: Calvarium and visualized facial bones are intact, without suspicious lesions. Sinuses: Visualized sinuses and mastoids are clear. IMPRESSION: Severely motion degraded examination. Within those constraints, no gross acute intracran ial abnormality. Reviewed by: Albert Sanchez MD on 10/10/2020 2:22 PM PDT Approved by: Albert Sanchez MD on 10/10/2020 2:22 PM PDT Station ID: [id number]
--- NOTE | 2020-10-10 14:29 | CT Report ---
PROCEDURE: CHEST W INDICATIONS: abn cxr CONTRAST: IV CONTRAST: Isovue 300 ml: 100 PO CONTRAST: *NO PO CONTRAST TECHNIQUE: After the administration of intravenous contrast, 5 mm thick sections acquired from the pulmonary api meche to the posterior costophrenic angles. 7 mm thick coronal MIP reformats were acquired. For radia tion dose reduction, the following was used: automated exposure control, adjustment of mA and/or kV according to patient size. COMPARISON: Chest radiographs dated earlier same day FINDINGS: CHEST: Lungs: Scattered subsegmental scarring/atelectasis. No acute consolidation. Diffuse peribronchial cuf fing suggestive of nonspecific bronchitis and/or reactive airways disease. Ill-defined patchy opaciti es present in the left lower lobe, with dependent appearance. Bilateral upper lobe emphysema. Pleura: No pleural effusion or pneumothorax. Heart: Normal in size. No pericardial effusion. Mild to moderate coronary atherosclerosis. Lymph nodes: Shotty mediastinal lymph nodes without definite pathological enlargement. Thyroid: Negative Aorta: Normal in size. Diffuse atherosclerotic plaque Pulmonary arteries: Increased size of the central pulmonary arteries raise the possibility of pulmona ry arterial hypertension. No gross intraluminal filling defect. Esophagus: Normal. Bones: Diffuse spondolytic changes and facet arthropathy. No compression fracture. Upper abdomen: Normal. IMPRESSION: Retrocardiac opacities on the comparison chest radiograph dated earlier same day corresponding to pat brittany opacities in the posterior left lower lobe. This could reflect aspiration/atelectasis versus yohana y pneumonia. If there is persistent clinical diagnostic uncertainty, recommend short interval radiogr aphic follow-up after treatment for further assessment. Additional chronic and incidental findings as above. Reviewed by: Albert Sanchez MD on 10/10/2020 2:28 PM PDT Approved by: Albert Sanchez MD on 10/10/2020 2:28 PM PDT Station ID: [id number]
--- NOTE | 2020-10-10 14:36 | CT Report ---
PROCEDURE: Abdomen/Pelvis W INDICATIONS: altered, sacral ulcer, IV only CONTRAST: IV CONTRAST: Isovue 300 ml: 100 PO CONTRAST: *NO PO CONTRAST TECHNIQUE: After the administration of IV contrast, 5 mm thick sections acquired from the diaphragms to the symp hysis. 5 mm thick coronal and sagittal reformats were acquired. For radiation dose reduction, the f ollowing was used: automated exposure control, adjustment of mA and/or kV according to patient size. COMPARISON: None. FINDINGS: ABDOMEN: Lung bases: Patchy ill-defined opacities in the retrocardiac left lower lobe. Heart:Normal in size. No pericardial effusion. Liver: Mild hepatic steatosis. Gallbladder: Unremarkable Bile ducts: Normal. Pancreas: Normal. Spleen: Normal. Adrenals: Normal. Kidneys and ureters: Bilateral renal cortical scarring and atrophy. No hydronephrosis. Bilateral zena l hilar vascular calcifications. No urolithiasis. Ureters appear decompressed. Stomach and duodenum: Normal. Bowel: Large amount of dense stool seen within the rectal vault raising the possibility of fecal rete ntion/impaction. Incidental colonic diverticulosis. Normal appearance of the appendix. Other: No free fluid or air. Abdominal nodes: Normal. Aorta: Normal in size. Scattered atherosclerotic plaque. IVC: Incidentally noted duplicated IVC Ventral wall: Normal. PELVIS: Bladder: Normal. Pelvic nodes: Normal. Inguinal: No hernia. Bones: No vertebral body compression fracture. No suspicious bone lesion. There is partially visualized right gluteal subcutaneous inflammatory stranding which is not entirely included on the study. IMPRESSION: Patchy retrocardiac left lower lobe opacities, potentially aspiration/atelectasis versus pneumonia. Normal appendix. Elsewhere, no acute abnormality Additional chronic and incidental findings as above. Reviewed by: Albert Sanchez MD on 10/10/2020 2:35 PM PDT Approved by: Albert Sanchez MD on 10/10/2020 2:35 PM PDT Station ID: [id number]
[2020-10-10] MEDS ORDERED: SODIUM CHLORIDE 0.9% 1,000 ML IV SCH ×2 (15:00→19:01)
--- NOTE | 2020-10-10 15:16 | HISTORY & PHYSICAL EXAMINATION ---
Chief Complaint - Chief Complaint Chief Complaint: patient unable to say History of Present Illness - Admitted From Admitted From:: ED - History Obtained From Records Reviewed: records, EMT notes - History of Present Illness HPI Comment/Other: 75 yo male who lives with his son was brought by svp chief marketing officer to ED today when the visiting care service [facility] ([phone]) found him to be less responsive today. They come 3 x weekly Patient is minimally participative in history but can shake head yes/ no for simple symptom questions (do you hurt shakes head no) He is mostly sitting in a big chair reportedly for the last 2 months at home, generally refuses to get up such that the person bathing him can only clean the front . He has been incontinent in chair for ? days. He has had a very difficult time getting up. I spoke with Lynda the production assembly supervisor at [facility] today; She went to see the patient herself today; had not seen him directly first hand before. She reports her staff have called APS "at least 13 x but patient always sends them away. Also 911 has come in the past at their request; but "they always leave" after he (patient) tells them he is ok, and she is "glad they took him to hospital today. His son reportedly has severe pulmonary issues but his father (this patient) smokes "nonstop" and drinks pop and beer and the smoke bothers the sons health condition. Relationship reported to be not good between patient and son jack. PMH HTN on lisinopril, DM on 500 Bid metformin . Hx stroke / was at [facility] about 6 yrs ago. A patient care manager (?Luh?) is with patient several hours a day and helps him with his ADLs, meals. It is not clear if she gives him his medications to take or if he takes them at all. Chanelleinmat not able to tell me if he checks sugars at all Today svp chief marketing officer were called as he had worsen ing alertness over last day or 2.. Once patient lifted out of chair by svp chief marketing officer; found to be sitting in feces. incontinent of stool for ? how long, maggots noted on chair. sacral decubitus, and bilateral heel decubiti. VS by svp chief marketing officer "afebrile" 126/91, 92% RA RR 22 HR 110 EKG low voltage, NSR NL axis, RBBB In the ED sl (sl hypothermic at 35.9, otherwise hemodynically stable HR 83 BP 111/93 RR 16 RA 87%. Improved to upper 90's w/ 3L NC He was minimally responsive Labs notable for extreme volume contraction H/H 19.4/62.3 ( In february was 16/48.8 BUN/CR 63/1.4 Glucose 452 Na 138 (corrects to ~ 143 accounting for glucose) venous gas w/ ph 7.2 Initial troponin 84.7 Total CK 819 UA SG 1.020 > 1000 glucose otherwise unremarkable Tox screen neg for ETOH _ Coronavirus PCR A cxr (note in contracted state) suggestive of retrocardiac infiltrate vs atelectasis); as above thre was no leukocytosis but elevated lactate empirically started on ceftriaxone/ azithromycin. No significant respiratory distress, no adventitious sounds on ED chest exam After 2 L NS in ED, initial lactate 3.3>> 3.2, volume continues I spoke at length with son; Jack Dad has lived w/ him x 5 years, the landlord has pretty much said dad cant come back because his room is a "biohazard". . Patient had been living in his moms house til she ; house was filthy; rats etc; he had to leave after she , then he was in a trailer that belonged to a friend of the son; While there he didnt shower x 3 years, had dogs, dog feces were even on Prasad, the dogs of the poor house conditions; Sometime after that he had the stroke ~ 6 yrs ago; was at [facility] SNF; patient wasnt going to go to SNF, unless son bought him cigarettes At some point ater that he got himself a hotel room, but got kicked out . Since then he has been with Jack (the son) "He will drink himself into a coma with 12 packs of pop (not sugar free)" ~ 4 yrs ago, Que's son moved out from his upstairs bedroom. Prasad somehow managed to get up stairs though poorly mobile, "and has been in that room ever since" (with the home care as above. Currently a friend of the patients keeps bringing him soda and cigarettes; son trying to get trespassing violation on her. He confirms as did Lynda above that 911 and APS have been called numerous times. History - Past Medical History Cardiovascular: reports: Other (none known) Respiratory: reports: COPD Neuro: reports: CVA (at [facility] ~ 6 yrs ago) Endocrine/Autoimmune: reports: Type 2 diabetes Meds/Allgy - Home Medications Home Medications: Ambulatory Orders Medication Instructions Recorded Confirmed lisinopriL [Prinivil] 10 mg PO DAILY #30 tablet 02/20/20 metFORMIN [Glucophage] 500 mg PO BIDWM #60 tablet 02/20/20 Albuterol Sulf [Ventolin Hfa 2 puffs PO Q4H PRN 10/10/20 Inhaler] Budesonide/Formoterol Fumarate 1 inh PO BID 10/10/20 [Symbicort 160-4.5 Mcg Inhaler] Sertraline [Zoloft] 25 mg PO DAILY 10/10/20 Zolpidem Tartrate [Ambien] 10 mg PO QPM PRN 10/10/20 - Allergies Allergies/Adverse Reactions: Allergies Allergy/AdvReac Type Severity Reaction Status Date / Time No Known Drug Allergies Allergy Verified 10/10/20 12:36 Review of Systems - Constitutional Constitutional: reports: Other (Patient unable to participate in ROS;) Exam - Vital Signs Reviewed Vital Signs: Yes Vital Signs: Vital Signs x48h Temp Pulse Resp BP Pulse Ox 10/10/20 14:20 100 29 H 117/74 95 10/10/20 11:23 35.9 C L 83 16 111/93 H 87 L VS in ED ; 35.9 87% RA 111/93 HR 83 RR 16 - Physical Exam General Appearance: positive: Lethargic, Other (see on ED stretcher in room 3, acutely and chronically ill appearing obese older bearded man.) Eyes Bilateral: positive: Other (initially I needed to maually open lids to inspect , anicteric, no scleral injection, pupils react to light , not focusing on me (did once on floor)) ENT: positive: Dry mucous membranes (Extremly dry oral mucosa and firm looking tongue. edentulous) Neck: positive: Other (Right neck IJ, Left neck + carotid 2+, no bruit) Respiratory: positive: Chest non-tender, No respiratory distress, Breath sounds nml. negative: Wheezes (lying flat on stretcher with unlabored resps), Rales Cardiovascular: positive: Regular rate & rhythm, No murmur. negative: Systolic murmur Abdomen: positive: Nml bowel sounds, No distention, Other (obese, lower abdominal folds w/ intergrigio, small shallow areas of breakdown across lower groin fold). negative: Tenderness Skin: positive: Other ( peripheral clamping down of fingers and feet. nailbeds white, (nails also very tobacco stained). Feet cold to touch, blanching erythema (almost hyperemic re: blanching). Bilateral heels w/ R buttock and upper lateral thigh ~23x 15 cm bright pink stage 1 pressure wound, with mid ~ 5x5 slight hughes) Extremities: positive: Pedal edema, Other (LE and pedal edema ~ 2+. feet cold to touch w/ RLE 1st MTP/ball of foot cold/white, otherwise bright pink,blanching (almost like hyperemia). Bilateral ~ 2 cm heel ulcers, no foul odor, no drainage. Full thickness ~ 2mm deep) Neurologic/Psychiatric: positive: Other (arouses to name, pupils react to light, not really tracking, follows very simple commands. Later on floor he is more arousable, able to respond to ? re: intubation/CPR. Not able to assess cognition very well) Sepsis Event Note (H) - Evaluation Current Stage of Sepsis: Sepsis Possible source of Sepsis: positive: Pulmonary, Wound Confirmed Source and Organism (if known) of Sepsis: possible pulmonary source HR, RR, low temperature could also be related to extreme volume depletion - Sepsis Criteria Sepsis Criteria: Recorded Temperature greater than 38.3C or Less than 36C, Recorded Heart Rate greater than 90 bpm, Recorded Respiratory Rate greater than 20 (as above, the hypothermia, HR, and RR could be due to extreme volume depletion) Conclusion/Plan - Problem List (1) Extracellular volume depletion Conclusion/Plan: Severe, with lactic acidosis Although very volume contracted his serum C02 is not contracted looking (serum HC03 on prior ED preseentations also 26-28 , ? possibly r/t severe polyuri w/ uncontrolled carbohydrate diet (? Mild HNNK?) Urine glucose +++ continue to volume expand Total CK added to labs>> mild increase ~800 (2) Community acquired bacterial pneumonia Conclusion/Plan: small retrocardiac infiltrate (could be atelectasis); Exam currently not convincing for respiratory infection 99% on 3L now; Day 1 Ceftriaxone/Azithor tritrate down 02 to >90 Recheck CXR after volume repletion prn nebs if gets congested after volume repletion follow up blood cultures VTE prophylaxis; 40 mg lovenox/d (3) Sepsis Conclusion/Plan: Hypothermia, HR over 90, RR > 20 Possible sources lung infiltrate vs Sacral and heel wounds do not appear infected, no draingage no foul odor but could be Also T, HR and RR could be the severe volume depletion, fortunately he is not hypotensive The above VS may be r/t severe volume depletion (? Mild HHNK? if drank much sweeted soda / reported 12pack?) as he is not hypotensive f/u blood cultures (4) Lactic acidosis Conclusion/Plan: I suspect this is more due to severe volume contraction rather than sepsis given BP ok After 2 L, lactate 3.3>>3.2 additional liter started in ED Contiue at 150/hr x 2 and reeval lactate at 8p (5) Uncontrolled diabetes mellitus with hyperglycemia Conclusion/Plan: unclear if being managed at all at home; per son report zero diet control ? if taking metformin continue volume repletion last A1C=8.19 april 2019 recheck A1C (added to blood work) 10 lantus pm mod dose noneating correctional insulin and adjst as needed. (NPO til more alert) (6) Mixed acid base balance disorder Conclusion/Plan: venous ph 7.2 on presentation very volume contracted and known COPD (evidently no significant baseline repiraory acidosis w/ known Copd as baseline serum bicarb only slighly elevated 26-28 in past; checking total CK if he has significant tissue trauma contibuting to H+, ? at least modest rhabdo? consider recheck venous ph once volume repleted (7) Elevated creatine kinase Conclusion/Plan: tissue injury CK total 813 mild ; likley related to pressure wounds on sacrum and heels not significant contributor to lactate (8) Acute kidney injury Conclusion/Plan: related to volume depletion/prerenal 63/1.4 (20/1.Feb reeval tomorrow after continued volume expansion (9) Decubitus ulcer of buttock, stage 2 Conclusion/Plan: pressure ulcer extensive Right upper thigh and right buttock; and heels; Do not appear infected , Mostly stage I R buttockexcept center most area stage 2 roll side to side wound care consult Heels Stage II no fluctuance offload wound care consult (10) Self-care deficit Conclusion/Plan: Not able to meet his own needs even w/ home care help Social work consult OT for cognitive eval; eg SMOG score consider telepsych once lucid returning home doesnt sound like an option (11) Elevated troponin Conclusion/Plan: likely r/t volume contraction rather than ischemia rechecking at 1900 (12) Full code status Conclusion/Plan: Code status; patient awake enuf ~ 6p to discuss code status "I dont know several x, but then said yes to intubation and yes to CPR Revisit when more able to converse to ensure no change in thoughts Resume home meds once reconciled - Lab Results Fish Bones: 10/10/20 12:32 10/10/20 12:32 - Diagnostic Imaging Results Diagnostic Imaging Results: positive: Final report reviewed Diagnostic Imaging Results Comments: CXR ED 10/10 post R IJ catheter; cath tp over Lower SVC CXR Small retrocardiac opacity ; either atelectasis, apsiration or pneumonia
[2020-10-10] MEDS ORDERED: SODIUM CHLORIDE 0.9% 1,000 ML IV STA (16:00)
--- NOTE | 2020-10-10 16:36 | XRAY Report ---
PROCEDURE: Chest 1 View X-Ray INDICATIONS: reeval infiltrate after volume expansion; TECHNIQUE: One view of the chest was acquired. COMPARISON: Right internal jugular central venous catheter tip is in SVC. FINDINGS: Surgical changes and devices: None. Lungs and pleura: No pleural effusions or pneumothorax. Airspace opacities are again seen scattered in bilateral perihilar region and lower lung delgado not significantly changed from previous study sug gesting for technique. Mediastinum: Mildly tortuous thoracic aorta is again seen. Heart size is enlarged. Bones and chest wall: No suspicious bony lesions. Overlying soft tissues appear unremarkable. IMPRESSION: Persistent bilateral scattered airspace opacities more prominent in lower lobes. No gross pneumothora x. No significant pleural effusion. Reviewed by: Tramaine Taylor MD on 10/10/2020 4:35 PM PDT Approved by: Tramaine Taylor MD on 10/10/2020 4:35 PM PDT Station ID: [id number]
[2020-10-10] MEDS: SODIUM CHLORIDE FLUSH 0.9% 10 ML SYRINGE IVP SCH (17:55)
[2020-10-10] MEDS: INSULIN REGULAR HUMAN 300 UNIT/3 ML VIAL SUBQ SCH (18:28)
[2020-10-10] MEDS: SODIUM CHLORIDE 0.9% 1,000 ML IV SCH (19:35)
[2020-10-10] MEDS ORDERED: INSULIN GLARGINE 300 UNIT/3 ML PEN SUBQ SCH ×2 (21:00)
[2020-10-10 21:16] LABS: ESTIMATED AVERAGE GLUCOSE 358 mg/dL (70-100); HEMOGLOBIN A1c% 14.1 % (4.27-6.07)
[2020-10-10] MEDS ORDERED: LIDOCAINE 2% URO-JET 5 ML SYRINGE UR ONE (22:01)
[2020-10-10 23:18] LABS: MUDS CUTOFF CONCENTRATIONS CUTOFF CONC BELOW:
[2020-10-10 23:19] LABS: AMPHETAMINE SCREEN,URINE NEGATIVE (NEGATIVE); BARBITURATE SCREEN,UR NEGATIVE (NEGATIVE); BENZODIAZEPINES SCREEN, URINE NEGATIVE (NEGATIVE); COCAINE SCREEN URINE NEGATIVE (NEGATIVE); METHADONE SCREEN, URINE NEGATIVE (NEGATIVE); METHAMPHETAMINES SCREEN, URINE NEGATIVE (NEGATIVE); OPIATE SCREEN, URINE NEGATIVE (NEGATIVE); OXYCODONE SCREEN, URINE NEGATIVE (NEGATIVE); PROPOXYPHENE SCREEN, URINE NEGATIVE (NEGATIVE); THC CANNABINOID SCREEN, URINE NEGATIVE (NEGATIVE); TRICYCLIC ANTIDEPRESSANT,URINE NEGATIVE (NEGATIVE)
[2020-10-11] MEDS: INSULIN REGULAR HUMAN 300 UNIT/3 ML VIAL SUBQ SCH ×3 (00:52→11:40)
[2020-10-11] MEDS: SODIUM CHLORIDE FLUSH 0.9% 10 ML SYRINGE IVP SCH ×3 (00:53→16:47)
[2020-10-11 05:05] LABS: HCT - HEMATOCRIT 50.1 % (42.0-52.0); HGB - HEMOGLOBIN 15.9 g/dL (14.0-18.0); MEAN CORPUSCULAR HEMOGLOBIN 28.4 pg (27.0-31.0); MEAN CORPUSCULAR HGB CONC 31.7 g/dL (32.0-36.0); MEAN CORPUSCULAR VOLUME 89.5 fL (80.0-94.0); MEAN PLATELET VOLUME 9.9 fL (7.4-11.4); RED BLOOD COUNT 5.6 10^6/uL (4.70-6.10); RED CELL DISTRIBUTION WIDTH 13.9 % (12.0-15.0); WHITE BLOOD COUNT 10.5 x10^3/uL (4.8-10.8)
[2020-10-11] MEDS: SODIUM CHLORIDE 0.9% 1,000 ML IV SCH ×2 (05:05→18:37)
[2020-10-11] MEDS: cefTRIAXone 1 GM in SODIUM CHLORIDE 0.9% MINIBAG 100 ML IV SCH (08:59)
[2020-10-11] MEDS: NICOTINE 14 MG PATCH TOP SCH (09:00)
[2020-10-11] MEDS: ENOXAPARIN 40 MG/0.4 ML SYRINGE SUBQ SCH (09:01)
[2020-10-11] MEDS: AZITHROMYCIN INJ 500 MG in SODIUM CHLORIDE 0.9% 250 ML IV SCH (09:56)
[2020-10-11] MEDS: ZINC OXIDE 20% OINT 30 GM TUBE TOP PRN (10:42)
--- NOTE | 2020-10-11 13:05 | PROVIDER PROGRESS NOTE ---
Subjective - Prog Note Date Prog Note Date: 10/11/20 Prog Note Time: 13:02 - Subjective Subjective: Patient is lethargic and with minimal verbal responses does not respond much to communication but does deny pain Current Medications - Current Medications Current Medications: Current Medications Generic Name Dose Route Start Last Admin Trade Name Freq PRN Reason Stop Dose Admin Enoxaparin Sodium 40 mg 10/11/20 09:00 10/11/20 09:01 Enoxaparin 40 Mg/0.4 Ml Syringe SUBQ 40 mg DAILY RODOLFO Administration Azithromycin 500 mg/ Sodium 250 mls @ 250 mls/hr 10/11/20 10:00 10/11/20 11:00 Chloride IV 10/12/20 12:00 Infused DAILY RODOLFO Infusion Ceftriaxone Sodium 1 gm/ 100 mls @ 200 mls/hr 10/11/20 09:00 10/11/20 09:30 Sodium Chloride IV 10/14/20 13:00 Infused DAILY RODOLFO Infusion Sodium Chloride 1,000 mls @ 83.333 mls/hr 10/10/20 20:00 10/11/20 11:00 Normal Saline 0.9% IV 83.3 mls/hr .Q12H RODOLFO Infusion Insulin Glargine 2 unit 10/10/20 21:00 10/10/20 21:09 Insulin Glargine 300 Unit/3 Ml Pen SUBQ 2 unit QPM RODOLFO Administration Insulin Human Regular 1 - 9 unit 10/10/20 18:00 10/11/20 06:42 Insulin Regular Human 300 Unit/3 Ml Vial SUBQ Not Given Q6HR [facility] Protocol Multi-Ingredient Ointment 1 applic 10/11/20 09:49 10/11/20 10:42 Zinc Oxide 20% Oint 30 Gm Tube TOP 1 applic PRN PRN Administration Skin Care Nicotine 1 patch 10/11/20 09:00 10/11/20 09:00 Nicotine 14 Mg Patch TOP 1 patch DAILY RODOLFO Administration Sodium Chloride 10 ml 10/10/20 17:00 10/11/20 09:00 Sodium Chloride Flush 0.9% 10 Ml Syringe IVP Not Given 0100,0900,1700 [facility] Objective - Vital Signs/Intake & Output Reviewed Vital Signs: Yes Vital Signs: Vital Signs x48h Temp Pulse Resp BP Pulse Ox 10/11/20 07:53 36.4 C L 73 24 129/68 94 Intake & Output: Intake & Output 10/08/20 10/09/20 10/10/20 10/11/20 23:59 23:59 23:59 23:59 Intake Total 3551.333 1618.763 Output Total 875 Balance 3551.333 743.763 - Objective General Appearance: positive: Lethargic, Other (Appears to be in no acute distress but does not respond well to questions and shows minimal verbal communication. He also appears to be disheveled and with skin characteristics suggestive of Some form of neglect) Eyes Bilateral: positive: Normal inspection ENT: positive: Dry mucous membranes, Other (Distal dorsal aspect of tongue remarkable for eschar plaque formation suggestive of possible previous trauma versus sclerosis) Neck: positive: Other (Central line in place to right IJ) Respiratory: positive: Chest non-tender, Rhonchi Cardiovascular: positive: Regular rate & rhythm, No murmur, No gallop Abdomen: positive: Non-tender, No organomegaly, Nml bowel sounds Skin: positive: Dry, Other (Multiple scattered areas of callus, dry skin, small excoriations, bilateral erythema to both feet consistent with venous stasis dermatitis, heel ulcers) Extremities: positive: Pedal edema Neurologic/Psychiatric: positive: CN's nml (2-12), Disoriented to time, Slurred/abnml speech. negative: Motor nml, Disoriented to person, Disoriented to place, Facial droop - Lab Results Fish Bones: 10/11/20 04:59 10/10/20 12:32 Other Labs: Lab Results x24hrs 10/11/20 10/11/20 10/10/20 Range/Units 04:59 04:59 22:50 WBC 10.5 (4.8-10.8) x10^3/uL RBC 5.60 (4.70-6.10) 10^6/uL Hgb 15.9 (14.0-18.0) g/dL Hct 50.1 (42.0-52.0) % MCV 89.5 (80.0-94.0) fL MCH 28.4 (27.0-31.0) pg MCHC 31.7 L (32.0-36.0) g/dL RDW 13.9 (12.0-15.0) % Plt Count 314 (130-450) 10^3/uL MPV 9.9 (7.4-11.4) fL Estimat Average Glucose (70-100) mg/dL Hemoglobin A1c % (4.27-6.07) % Lactic Acid (0.5-2.2) mmol/L Total Creatine Kinase 557 H (22-269) IU/L Troponin I High Sens (2.3-19.7) ng/L Nasal Adenovirus (PCR) Nasal B. parapertussis DNA (PCR) Nasal Coronavir 229E PCR Nasal Coronavir HKU1 PCR Nasal Coronavir NL63 PCR Nasal Coronavir OC43 PCR Nasal Enterovir/Rhinovir PCR Nasal Influenza B PCR Nasal Influenza A PCR Nasal Parainfluen 1 PCR Nasal Parainfluen 2 PCR Nasal Parainfluen 3 PCR Nasal Parainfluen 4 PCR Nasal RSV (PCR) Nasal B.pertussis DNA PCR Nasal C.pneumoniae (PCR) Campos Human Metapneumo PCR Nasal M.pneumoniae (PCR) Nasal SARS-CoV-2 (PCR) Urine Opiates Screen NEGATIVE (NEGATIVE) Ur Oxycodone Screen NEGATIVE (NEGATIVE) Urine Methadone Screen NEGATIVE (NEGATIVE) Ur Propoxyphene Screen NEGATIVE (NEGATIVE) Ur Barbiturates Screen NEGATIVE (NEGATIVE) Ur Tricyclics Screen NEGATIVE (NEGATIVE) Ur Phencyclidine Scrn NEGATIVE (NEGATIVE) Ur Amphetamine Screen NEGATIVE (NEGATIVE) U Methamphetamines Scrn NEGATIVE (NEGATIVE) U Benzodiazepines Scrn NEGATIVE (NEGATIVE) Urine Cocaine Screen NEGATIVE (NEGATIVE) U Cannabinoids Screen NEGATIVE (NEGATIVE) 10/10/20 10/10/20 10/10/20 Range/Units 19:23 19:23 15:20 WBC (4.8-10.8) x10^3/uL RBC (4.70-6.10) 10^6/uL Hgb (14.0-18.0) g/dL Hct (42.0-52.0) % MCV (80.0-94.0) fL MCH (27.0-31.0) pg MCHC (32.0-36.0) g/dL RDW (12.0-15.0) % Plt Count (130-450) 10^3/uL MPV (7.4-11.4) fL Estimat Average Glucose (70-100) mg/dL Hemoglobin A1c % (4.27-6.07) % Lactic Acid 1.9 3.2 H* (0.5-2.2) mmol/L Total Creatine Kinase (22-269) IU/L Troponin I High Sens 64.9 H* (2.3-19.7) ng/L Nasal Adenovirus (PCR) Nasal B. parapertussis DNA (PCR) Nasal Coronavir 229E PCR Nasal Coronavir HKU1 PCR Nasal Coronavir NL63 PCR Nasal Coronavir OC43 PCR Nasal Enterovir/Rhinovir PCR Nasal Influenza B PCR Nasal Influenza A PCR Nasal Parainfluen 1 PCR Nasal Parainfluen 2 PCR Nasal Parainfluen 3 PCR Nasal Parainfluen 4 PCR Nasal RSV (PCR) Nasal B.pertussis DNA PCR Nasal C.pneumoniae (PCR) Campos Human Metapneumo PCR Nasal M.pneumoniae (PCR) Nasal SARS-CoV-2 (PCR) Urine Opiates Screen (NEGATIVE) Ur Oxycodone Screen (NEGATIVE) Urine Methadone Screen (NEGATIVE) Ur Propoxyphene Screen (NEGATIVE) Ur Barbiturates Screen (NEGATIVE) Ur Tricyclics Screen (NEGATIVE) Ur Phencyclidine Scrn (NEGATIVE) Ur Amphetamine Screen (NEGATIVE) U Methamphetamines Scrn (NEGATIVE) U Benzodiazepines Scrn (NEGATIVE) Urine Cocaine Screen (NEGATIVE) U Cannabinoids Screen (NEGATIVE) 10/10/20 10/10/20 10/10/20 Range/Units 13:05 12:32 12:32 WBC (4.8-10.8) x10^3/uL RBC (4.70-6.10) 10^6/uL Hgb (14.0-18.0) g/dL Hct (42.0-52.0) % MCV (80.0-94.0) fL MCH (27.0-31.0) pg MCHC (32.0-36.0) g/dL RDW (12.0-15.0) % Plt Count (130-450) 10^3/uL MPV (7.4-11.4) fL Estimat Average Glucose 358 H (70-100) mg/dL Hemoglobin A1c % 14.1 H (4.27-6.07) % Lactic Acid (0.5-2.2) mmol/L Total Creatine Kinase 819 H (22-269) IU/L Troponin I High Sens (2.3-19.7) ng/L Nasal Adenovirus (PCR) NOT DETECTED Nasal B. parapertussis DNA (PCR) NOT DETECTED Nasal Coronavir 229E PCR NOT DETECTED Nasal Coronavir HKU1 PCR NOT DETECTED Nasal Coronavir NL63 PCR NOT DETECTED Nasal Coronavir OC43 PCR NOT DETECTED Nasal Enterovir/Rhinovir PCR NOT DETECTED Nasal Influenza B PCR NOT DETECTED Nasal Influenza A PCR NOT DETECTED Nasal Parainfluen 1 PCR NOT DETECTED Nasal Parainfluen 2 PCR NOT DETECTED Nasal Parainfluen 3 PCR NOT DETECTED Nasal Parainfluen 4 PCR NOT DETECTED Nasal RSV (PCR) NOT DETECTED Nasal B.pertussis DNA PCR NOT DETECTED Nasal C.pneumoniae (PCR) NOT DETECTED Campos Human Metapneumo PCR NOT DETECTED Nasal M.pneumoniae (PCR) NOT DETECTED Nasal SARS-CoV-2 (PCR) NOT DETECTED Urine Opiates Screen (NEGATIVE) Ur Oxycodone Screen (NEGATIVE) Urine Methadone Screen (NEGATIVE) Ur Propoxyphene Screen (NEGATIVE) Ur Barbiturates Screen (NEGATIVE) Ur Tricyclics Screen (NEGATIVE) Ur Phencyclidine Scrn (NEGATIVE) Ur Amphetamine Screen (NEGATIVE) U Methamphetamines Scrn (NEGATIVE) U Benzodiazepines Scrn (NEGATIVE) Urine Cocaine Screen (NEGATIVE) U Cannabinoids Screen (NEGATIVE) 10/10/20 Range/Units 12:32 WBC (4.8-10.8) x10^3/uL RBC (4.70-6.10) 10^6/uL Hgb (14.0-18.0) g/dL Hct (42.0-52.0) % MCV (80.0-94.0) fL MCH (27.0-31.0) pg MCHC (32.0-36.0) g/dL RDW (12.0-15.0) % Plt Count (130-450) 10^3/uL MPV (7.4-11.4) fL Estimat Average Glucose (70-100) mg/dL Hemoglobin A1c % (4.27-6.07) % Lactic Acid (0.5-2.2) mmol/L Total Creatine Kinase (22-269) IU/L Troponin I High Sens 84.7 H* (2.3-19.7) ng/L Nasal Adenovirus (PCR) Nasal B. parapertussis DNA (PCR) Nasal Coronavir 229E PCR Nasal Coronavir HKU1 PCR Nasal Coronavir NL63 PCR Nasal Coronavir OC43 PCR Nasal Enterovir/Rhinovir PCR Nasal Influenza B PCR Nasal Influenza A PCR Nasal Parainfluen 1 PCR Nasal Parainfluen 2 PCR Nasal Parainfluen 3 PCR Nasal Parainfluen 4 PCR Nasal RSV (PCR) Nasal B.pertussis DNA PCR Nasal C.pneumoniae (PCR) Campos Human Metapneumo PCR Nasal M.pneumoniae (PCR) Nasal SARS-CoV-2 (PCR) Urine Opiates Screen (NEGATIVE) Ur Oxycodone Screen (NEGATIVE) Urine Methadone Screen (NEGATIVE) Ur Propoxyphene Screen (NEGATIVE) Ur Barbiturates Screen (NEGATIVE) Ur Tricyclics Screen (NEGATIVE) Ur Phencyclidine Scrn (NEGATIVE) Ur Amphetamine Screen (NEGATIVE) U Methamphetamines Scrn (NEGATIVE) U Benzodiazepines Scrn (NEGATIVE) Urine Cocaine Screen (NEGATIVE) U Cannabinoids Screen (NEGATIVE) - Diagnostic Imaging Diagnostic Imaging Results: positive: Final report reviewed ABX Reporting Has patient been on IV antibiotics over the past 48 hours?: Yes Sepsis Event Note (H) - Evaluation Current Stage of Sepsis: Sepsis Possible source of Sepsis: positive: Pulmonary, Wound - Sepsis Criteria Sepsis Criteria: Recorded Temperature greater than 38.3C or Less than 36C, Recorded Heart Rate greater than 90 bpm, Recorded Respiratory Rate greater than 20 (as above, the hypothermia, HR, and RR could be due to extreme volume depletion) Assessment/Plan - Problem List (1) Sepsis Impression: Improved Lactic acidosis resolved Allergies still somewhat unclear especially in the setting of a normal WBC and no fever Patient is a very poor historian making diagnosis somewhat challenging Likely source is pneumonia which is likely underappreciated on x-ray due to dehydration which is itself a function of poor self-care and limited p.o. intake exacerbated by sepsis Follow-up blood cultures, at this time no growth to date Continue empiric azithromycin and Rocephin Qualifiers: Sepsis type: sepsis due to unspecified organism Sepsis acute organ dysfunction status: with acute organ dysfunction Severe sepsis acute organ dysfunction type: encephalopathy Severe sepsis shock status: without septic shock Qualified Code(s): A41.9 - Sepsis, unspecified organism; R65.20 - Severe sepsis without septic shock; G93.40 - Encephalopathy, unspecified (2) Acute kidney injury Impression: Slightly elevated creatinine on admission at 1.4, repeat not drawn We will check daily labs Suspect this should continue to improve with rehydration (3) Community acquired bacterial pneumonia Impression: As above, sepsis resolved Somewhat unimpressive findings on chest x-ray may be falsely minimizing due to dehydration and hypovolemia Afebrile since admission Minimal hypoxia with 2 L oxygen requirement Continue empiric azithromycin and Rocephin (4) Lactic acidosis Impression: Resolved, likely secondary to infection exacerbated by dehydration (5) Self-care deficit Impression: Patient presents With evidence of self-neglect apparent on skin, mucous membranes and other features. Has had multiple APS reports were the patient himself has refused to accept APS workers Social work assistance is greatly appreciated (6) Uncontrolled diabetes mellitus with hyperglycemia Impression: Most recent A1c greater than 8/1 year ago We will add A1c to a.m. labs Continue insulin sliding scale
[2020-10-11] MEDS: INSULIN ASPART 300 UNIT/3 ML PEN SUBQ SCH ×2 (17:13→21:47)
[2020-10-11 19:05] LABS: CALCIUM 7.3 mg/dL (8.5-10.3); CREATININE 0.7 mg/dL (0.6-1.2); POTASSIUM 3.9 mmol/L (3.5-5.0)
[2020-10-11] MEDS ORDERED: INSULIN GLARGINE 300 UNIT/3 ML PEN SUBQ SCH (21:37)
[2020-10-11] MEDS: NYSTATIN POWDER 15 GM TOP SCH (21:48)
[2020-10-11] MEDS: IPRATROPIUM/ALBUTEROL 3 ML NEB INH PRN (23:05)
[2020-10-12 04:57] LABS: HCT - HEMATOCRIT 49.6 % (42.0-52.0); HGB - HEMOGLOBIN 15.1 g/dL (14.0-18.0); MEAN CORPUSCULAR HGB CONC 30.4 g/dL (32.0-36.0); MEAN PLATELET VOLUME 9.8 fL (7.4-11.4); RED BLOOD COUNT 5.39 10^6/uL (4.70-6.10); RED CELL DISTRIBUTION WIDTH 14.3 % (12.0-15.0); WHITE BLOOD COUNT 8.4 x10^3/uL (4.8-10.8)
[2020-10-12 05:04] LABS: CALCIUM 8.9 mg/dL (8.5-10.3); CREATININE 1.1 mg/dL (0.6-1.2); POTASSIUM 5.1 mmol/L (3.5-5.0)
[2020-10-12] MEDS: SODIUM CHLORIDE 0.9% 1,000 ML IV SCH ×2 (05:58→19:41)
[2020-10-12] MEDS: SODIUM CHLORIDE FLUSH 0.9% 10 ML SYRINGE IVP SCH ×3 (07:58→17:17)
[2020-10-12] MEDS: INSULIN ASPART 300 UNIT/3 ML PEN SUBQ SCH ×4 (08:00→21:45)
[2020-10-12] MEDS: AZITHROMYCIN INJ 500 MG in SODIUM CHLORIDE 0.9% 250 ML IV SCH (08:20)
[2020-10-12] MEDS: SODIUM CHLORIDE FLUSH 0.9% 10 ML SYRINGE IVP PRN (08:21)
[2020-10-12] MEDS: NICOTINE 14 MG PATCH TOP SCH (08:21)
[2020-10-12] MEDS: ENOXAPARIN 40 MG/0.4 ML SYRINGE SUBQ SCH (08:21)
[2020-10-12] MEDS: cefTRIAXone 1 GM in SODIUM CHLORIDE 0.9% MINIBAG 100 ML IV SCH (09:44)
--- NOTE | 2020-10-12 10:25 | PROVIDER PROGRESS NOTE ---
Subjective - Prog Note Date Prog Note Date: 10/12/20 Prog Note Time: 10:23 - Subjective Pt reports feeling: No change (Patient continues to be obtunded, lethargic, and not providing coherent responses to questions but does appear to be without pain or acute distress) Current Medications - Current Medications Current Medications: Current Medications Generic Name Dose Route Start Last Admin Trade Name Freq PRN Reason Stop Dose Admin Albuterol/Ipratropium 3 ml 10/11/20 19:29 10/11/20 23:05 Ipratropium/Albuterol 3 Ml Neb INH 3 ml RTQID PRN Administration Shortness of Air/Wheezing Enoxaparin Sodium 40 mg 10/11/20 09:00 10/12/20 08:21 Enoxaparin 40 Mg/0.4 Ml Syringe SUBQ 40 mg DAILY RODOLFO Administration Azithromycin 500 mg/ Sodium 250 mls @ 250 mls/hr 10/11/20 10:00 10/12/20 09:30 Chloride IV 10/12/20 12:00 Infused DAILY RODOLFO Infusion Ceftriaxone Sodium 1 gm/ 100 mls @ 200 mls/hr 10/11/20 09:00 10/12/20 09:44 Sodium Chloride IV 10/14/20 13:00 200 mls/hr DAILY RODOLFO Administration Sodium Chloride 1,000 mls @ 83.333 mls/hr 10/10/20 20:00 10/12/20 09:44 Normal Saline 0.9% IV 0 mls/hr .Q12H RODOLFO Infusion Insulin Aspart 1 - 9 unit 10/11/20 17:00 10/12/20 08:00 Insulin Aspart 300 Unit/3 Ml Pen SUBQ 3 unit 0800,1200,1700,2100 RODOLFO Administration Protocol Insulin Glargine 8 unit 10/11/20 21:37 10/11/20 21:48 Insulin Glargine 300 Unit/3 Ml Pen SUBQ 8 unit QPM RODOLFO Administration Multi-Ingredient Ointment 1 applic 10/11/20 09:49 10/11/20 10:42 Zinc Oxide 20% Oint 30 Gm Tube TOP 1 applic PRN PRN Administration Skin Care Nicotine 1 patch 10/11/20 09:00 10/12/20 08:21 Nicotine 14 Mg Patch TOP 1 patch DAILY RODOLFO Administration Nystatin 0 applic 10/11/20 21:00 10/11/20 21:48 Nystatin Powder 15 Gm TOP 1 applic BID RODOLFO Administration Sodium Chloride 10 ml 10/10/20 15:00 10/12/20 08:21 Sodium Chloride Flush 0.9% 10 Ml Syringe IVP 10 ml PRN PRN Administration NEEDED PER PROVIDER ORDERS Sodium Chloride 10 ml 10/10/20 17:00 10/12/20 08:21 Sodium Chloride Flush 0.9% 10 Ml Syringe IVP 10 ml 0100,0900,1700 RODOLFO Administration Objective - Vital Signs/Intake & Output Reviewed Vital Signs: Yes Vital Signs: Vital Signs x48h Temp Pulse Resp BP Pulse Ox 10/12/20 07:56 36.4 C L 70 20 121/51 L 93 Intake & Output: Intake & Output 10/09/20 10/10/20 10/11/20 10/12/20 23:59 23:59 23:59 23:59 Intake Total 3551.333 2953.231 1512.035 Output Total 1125 600 Balance 3551.333 1828.231 912.035 - Objective General Appearance: positive: Lethargic (Somewhat difficult to arouse, but more arousable than previous days. He was able to communicate simple concerns) Eyes Bilateral: positive: Normal inspection ENT: positive: ENT inspection nml Neck: positive: Nml inspection, Thyroid nml, No JVD Respiratory: positive: Chest non-tender, No respiratory distress Cardiovascular: positive: Regular rate & rhythm, No murmur, No gallop Abdomen: positive: Non-tender, No organomegaly, Nml bowel sounds Skin: positive: Color nml, Dry, Other (Multiple scattered areas of callus, dry skin, small excoriations, bilateral erythema to both feet consistent with venous stasis dermatitis, heel ulcers). negative: Pallor Extremities: positive: Pedal edema, Other Neurologic/Psychiatric: positive: CN's nml (2-12), Disoriented to place, Disoriented to time. negative: Disoriented to person - Lab Results Fish Bones: 10/12/20 04:44 10/12/20 04:44 Other Labs: Lab Results x24hrs 10/12/20 10/12/20 10/10/20 Range/Units 04:44 04:44 18:30 WBC 8.4 (4.8-10.8) x10^3/uL RBC 5.39 (4.70-6.10) 10^6/uL Hgb 15.1 (14.0-18.0) g/dL Hct 49.6 (42.0-52.0) % MCV 92.0 (80.0-94.0) fL MCH 28.0 (27.0-31.0) pg MCHC 30.4 L (32.0-36.0) g/dL RDW 14.3 (12.0-15.0) % Plt Count 305 (130-450) 10^3/uL MPV 9.8 (7.4-11.4) fL Sodium 142 140 (135-145) mmol/L Potassium 5.1 H 3.9 (3.5-5.0) mmol/L Chloride 103 105 (101-111) mmol/L Carbon Dioxide 33 H 29 (21-32) mmol/L Anion Gap 6.0 6.0 (6-13) BUN 67 H 59 H (6-20) mg/dL Creatinine 1.1 0.7 (0.6-1.2) mg/dL Estimated GFR (MDRD) 66 L 111 (>89) Glucose 271 H 286 H (70-100) mg/dL Calcium 8.9 7.3 L (8.5-10.3) mg/dL Sepsis Event Note (H) - Evaluation Current Stage of Sepsis: Sepsis Possible source of Sepsis: positive: Pulmonary, Wound - Sepsis Criteria Sepsis Criteria: Recorded Temperature greater than 38.3C or Less than 36C, Recorded Heart Rate greater than 90 bpm, Recorded Respiratory Rate greater than 20 (as above, the hypothermia, HR, and RR could be due to extreme volume dep letion) Assessment/Plan - Problem List (1) Sepsis Impression: Improved by vitals and labs, but patient continues to be obtunded Lactic acidosis resolved Etiology still somewhat unclear especially in the setting of a normal WBC and no fever Patient is a very poor historian making diagnosis somewhat challenging Likely source is pneumonia which is likely underappreciated on x-ray due to dehydration which is itself a function of poor self-care and limited p.o. intake exacerbated by sepsis Follow-up blood cultures, at this time no growth to date Continue empiric azithromycin and Rocephin Qualifiers: Sepsis type: sepsis due to unspecified organism Sepsis acute organ dysfunc tion status: with acute organ dysfunction Severe sepsis acute organ dysfu nction type: encephalopathy Severe sepsis shock status: without septic shock Qualified Code(s): A41.9 - Sepsis, unspecified organism; R65.20 - Severe sepsis without septic shock; G93.40 - Encephalopathy, unspecified (2) Acute kidney injury Impression: Resolved (3) Community acquired bacterial pneumonia Impression: Stable On minimal O2 (2L NC) Will repeat CXR as initially was very dehydrated and thus pneumonia was not clearly delineated on initial chest x-ray at admission (4) Self-care deficit Impression: Patient presents With evidence of self-neglect apparent on skin, mucous membranes and other features. Has had multiple APS reports were the patient himself has refused to accept APS workers Social work assistance is greatly appreciated Given his lack of progress, poor baseline functional status, goals of care conversation would be helpful. I will request a palliative care consult and contact them tomorrow (5) Uncontrolled diabetes mellitus with hyperglycemia Impression: Sugars trending upward, will increase Lantus from 8 units to 10 unit
[2020-10-12] MEDS: NYSTATIN POWDER 15 GM TOP SCH ×2 (10:31→21:46)
[2020-10-12] MEDS: ZINC OXIDE 20% OINT 30 GM TUBE TOP PRN (10:31)
--- NOTE | 2020-10-12 12:56 | XRAY Report ---
PROCEDURE: Chest 1 View X-Ray INDICATIONS: Hypoxia, follow up question of pneumonia TECHNIQUE: One view of the chest was acquired. COMPARISON: October 10, 2020 chest x-ray FINDINGS: Surgical changes and devices: Right internal jugular central venous catheter tip terminates in the ca udal SVC.. Lungs and pleura: Scattered perihilar airspace opacities again noted. Small left pleural effusion. No pneumothorax. Mediastinum: Mild cardiomegaly. Aorta is tortuous. Bones and chest wall: No suspicious bony lesions. Degenerative changes of the shoulders. Overlying soft tissues appear unremarkable. IMPRESSION: Persistent bilateral perihilar airspace opacities. Small left pleural effusion. Reviewed by: Js Rodriguez on 10/12/2020 11:55 AM TIMOTE[facility] Approved by: Js Rodriguez on 10/12/2020 11:55 AM TIMOTE[facility] Station ID: [id number]
[2020-10-12] MEDS: ACETAMINOPHEN 500 MG TABLET PO PRN (17:14)
[2020-10-12] MEDS ORDERED: INSULIN GLARGINE 300 UNIT/3 ML PEN SUBQ SCH (21:00)
[2020-10-13 05:49] LABS: HCT - HEMATOCRIT 49.6 % (42.0-52.0); HGB - HEMOGLOBIN 14.9 g/dL (14.0-18.0); MEAN CORPUSCULAR HEMOGLOBIN 28.4 pg (27.0-31.0); MEAN CORPUSCULAR VOLUME 94.5 fL (80.0-94.0); MEAN PLATELET VOLUME 9.7 fL (7.4-11.4); RED BLOOD COUNT 5.25 10^6/uL (4.70-6.10); RED CELL DISTRIBUTION WIDTH 14.3 % (12.0-15.0); WHITE BLOOD COUNT 7.9 x10^3/uL (4.8-10.8)
[2020-10-13 06:02] LABS: CALCIUM 8.9 mg/dL (8.5-10.3); CREATININE 0.9 mg/dL (0.6-1.2)
[2020-10-13] MEDS: SODIUM CHLORIDE FLUSH 0.9% 10 ML SYRINGE IVP SCH ×3 (07:49→17:57)
[2020-10-13] MEDS: INSULIN ASPART 300 UNIT/3 ML PEN SUBQ SCH ×5 (08:28→21:00)
[2020-10-13] MEDS: SODIUM CHLORIDE 0.9% 1,000 ML IV SCH ×2 (08:29→20:53)
[2020-10-13] MEDS: cefTRIAXone 1 GM in SODIUM CHLORIDE 0.9% MINIBAG 100 ML IV SCH (08:30)
[2020-10-13] MEDS: ENOXAPARIN 40 MG/0.4 ML SYRINGE SUBQ SCH (08:32)
[2020-10-13] MEDS: NICOTINE 14 MG PATCH TOP SCH (08:32)
[2020-10-13] MEDS: SODIUM CHLORIDE FLUSH 0.9% 10 ML SYRINGE IVP PRN (08:33)
[2020-10-13] MEDS: NYSTATIN POWDER 15 GM TOP SCH ×2 (08:33→21:01)
[2020-10-13] MEDS ORDERED: AZITHROMYCIN INJ 250 MG in SODIUM CHLORIDE 0.9% 250 ML IV SCH (09:00)
--- NOTE | 2020-10-13 10:58 | PROVIDER PROGRESS NOTE ---
Subjective - Prog Note Date Prog Note Date: 10/13/20 Prog Note Time: 10:58 - Subjective Pt reports feeling: Improved Subjective: Patient was able to respond to me today stating that he thinks he is feeling better. Current Medications - Current Medications Current Medications: Current Medications Generic Name Dose Route Start Last Admin Trade Name Freq PRN Reason Stop Dose Admin Acetaminophen 500 mg 10/12/20 17:08 10/12/20 17:14 Acetaminophen 500 Mg Tablet PO 500 mg Q4HR PRN Administration Pain or Fever > 38C (100.4F) Albuterol/Ipratropium 3 ml 10/11/20 19:29 10/11/20 23:05 Ipratropium/Albuterol 3 Ml Neb INH 3 ml RTQID PRN Administration Shortness of Air/Wheezing Enoxaparin Sodium 40 mg 10/11/20 09:00 10/13/20 08:32 Enoxaparin 40 Mg/0.4 Ml Syringe SUBQ 40 mg DAILY RODOLFO Administration Ceftriaxone Sodium 1 gm/ 100 mls @ 200 mls/hr 10/11/20 09:00 10/13/20 08:30 Sodium Chloride IV 10/14/20 13:00 25 mls/hr DAILY RODOLFO Administration Sodium Chloride 1,000 mls @ 83.333 mls/hr 10/10/20 20:00 10/13/20 08:29 Normal Saline 0.9% IV 83.3 mls/hr .Q12H RODOLFO Administration Insulin Aspart 1 - 9 unit 10/11/20 17:00 10/13/20 08:28 Insulin Aspart 300 Unit/3 Ml Pen SUBQ 1 unit 0800,1200,1700,2100 RODOLFO Administration Protocol Insulin Glargine 10 unit 10/12/20 21:00 10/12/20 21:44 Insulin Glargine 300 Unit/3 Ml Pen SUBQ 10 unit QPM RODOLFO Administration Multi-Ingredient Ointment 1 applic 10/11/20 09:49 10/12/20 10:31 Zinc Oxide 20% Oint 30 Gm Tube TOP 1 applic PRN PRN Administration Skin Care Nicotine 1 patch 10/11/20 09:00 10/13/20 08:32 Nicotine 14 Mg Patch TOP 1 patch DAILY RODOLFO Administration Nystatin 0 applic 10/11/20 21:00 10/13/20 08:33 Nystatin Powder 15 Gm TOP 1 applic BID RODOLFO Administration Sodium Chloride 10 ml 10/10/20 15:00 10/13/20 08:33 Sodium Chloride Flush 0.9% 10 Ml Syringe IVP 10 ml PRN PRN Administration NEEDED PER PROVIDER ORDERS Sodium Chloride 10 ml 10/10/20 17:00 10/13/20 08:34 Sodium Chloride Flush 0.9% 10 Ml Syringe IVP Not Given 0100,0900,1700 [facility] Objective - Vital Signs/Intake & Output Reviewed Vital Signs: Yes Vital Signs: Vital Signs x48h Temp Pulse Resp BP Pulse Ox 10/13/20 08:00 37.0 C 82 24 145/88 H 93 Intake & Output: Intake & Output 10/10/20 10/11/20 10/12/20 10/13/20 23:59 23:59 23:59 23:59 Intake Total 3551.333 2953.231 3685.455 1610 Output Total 1125 1300 400 Balance 3551.333 0434.689 1223.455 1210 - Objective General Appearance: positive: Lethargic (Patient is somewhat lethargic but he is able to sit upright with no assistance and is being fed breakfast by the LETTER OF CREDIT DOCUMENT EXAMINER. He answers some of my questions with simple answers. Though lethargic he is more alert today compared with previous days.) ENT: positive: ENT inspection nml, Dry mucous membranes Respiratory: positive: Chest non-tender, No respiratory distress, Other (Breath sounds diminished bilaterally) Cardiovascular: positive: Regular rate & rhythm, No murmur, No gallop Abdomen: positive: Non-tender, No organomegaly, Nml bowel sounds Skin: positive: Dry, Other (Multiple scattered areas of callus, dry skin, small excoriations, bilateral erythema to both feet consistent with venous stasis dermatitis, heel ulcers) Extremities: positive: Pedal edema Neurologic/Psychiatric: positive: Disoriented to time, Slurred/abnml speech, Depressed mood/affect. negative: Disoriented to person, Disoriented to place - Lab Results Fish Bones: 10/13/20 05:27 10/13/20 05:27 Other Labs: Lab Results x24hrs 10/13/20 10/13/20 10/13/20 Range/Units 05:27 05:27 05:27 WBC 7.9 (4.8-10.8) x10^3/uL RBC 5.25 (4.70-6.10) 10^6/uL Hgb 14.9 (14.0-18.0) g/dL Hct 49.6 (42.0-52.0) % MCV 94.5 H (80.0-94.0) fL MCH 28.4 (27.0-31.0) pg MCHC 30.0 L (32.0-36.0) g/dL RDW 14.3 (12.0-15.0) % Plt Count 294 (130-450) 10^3/uL MPV 9.7 (7.4-11.4) fL Sodium 143 (135-145) mmol/L Potassium 5.0 (3.5-5.0) mmol/L Chloride 105 (101-111) mmol/L Carbon Dioxide 33 H (21-32) mmol/L Anion Gap 5.0 L (6-13) BUN 52 H (6-20) mg/dL Creatinine 0.9 (0.6-1.2) mg/dL Estimated GFR (MDRD) 83 L (>89) Glucose 207 H (70-100) mg/dL Calcium 8.9 (8.5-10.3) mg/dL TSH 2.75 (0.34-5.60) uIU/mL ABX Reporting Has patient been on IV antibiotics over the past 48 hours?: Yes Sepsis Event Note (H) - Evaluation Current Stage of Sepsis: Sepsis Possible source of Sepsis: positive: Pulmonary, Wound - Sepsis Criteria Sepsis Criteria: Recorded Temperature greater than 38.3C or Less than 36C, Recorded Heart Rate greater than 90 bpm, Recorded Respiratory Rate greater than 20 (as above, the hypothermia, HR, and RR could be due to extreme volume depletion) Assessment/Plan - Problem List (1) Sepsis Qualifiers: Sepsis type: sepsis due to unspecified organism Sepsis acute organ dysfunction status: with acute organ dysfunction Severe sepsis acute organ dysfunction type: encephalopathy Severe sepsis shock status: without septic shock Qualified Code(s): A41.9 - Sepsis, unspecified organism; R65.20 - Severe sepsis without septic shock; G93.40 - Encephalopathy, unspecified (2) Acute kidney injury Impression: Resolved (3) Community acquired bacterial pneumonia Impression: Chest xray shows persistent opacities On 3-4L NC, but no SOB or increased work of breathing Cont IV abx pending clinical improvement (4) Self-care deficit Impression: Patient has been reported to APS for self-neglect. Social work is aware and is assisting in communicating with family regarding next steps for post discharge living situation. Consulted palliative care, appreciate KATHERINE Jimenez assistance. Plan is to continue to work with family to better define goals of care, CODE STATUS, and possibly placement pending clinical course. (5) Uncontrolled diabetes mellitus with hyperglycemia Impression: Most recent A1c 14.1 on 10/10/2020 Unlikely that he will be able to make significant improvements if left to his own accord. Continue Lantus, increase to 12 units, continue sliding scale and diabetic diet.
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
[2020-10-13] MEDS: MULTIVITAMIN W/MINERALS TABLET PO SCH (17:51)
[2020-10-13] MEDS ORDERED: INSULIN GLARGINE 300 UNIT/3 ML PEN SUBQ SCH (21:00)
[2020-10-13] MEDS: KETOROLAC 15 MG/ML VIAL IVP PRN (22:09)
[2020-10-14] MEDS: IPRATROPIUM/ALBUTEROL 3 ML NEB INH PRN (04:26)
[2020-10-14 04:50] LABS: HCT - HEMATOCRIT 50.7 % (42.0-52.0); HGB - HEMOGLOBIN 14.7 g/dL (14.0-18.0); MEAN CORPUSCULAR HEMOGLOBIN 27.8 pg (27.0-31.0); MEAN CORPUSCULAR VOLUME 95.8 fL (80.0-94.0); MEAN PLATELET VOLUME 9.9 fL (7.4-11.4); RED BLOOD COUNT 5.29 10^6/uL (4.70-6.10); RED CELL DISTRIBUTION WIDTH 14.2 % (12.0-15.0); WHITE BLOOD COUNT 9.4 x10^3/uL (4.8-10.8)
[2020-10-14 04:55] LABS: CALCIUM 9.1 mg/dL (8.5-10.3); CREATININE 0.9 mg/dL (0.6-1.2); POTASSIUM 5.2 mmol/L (3.5-5.0)
[2020-10-14] MEDS: SODIUM CHLORIDE FLUSH 0.9% 10 ML SYRINGE IVP SCH ×3 (07:44→16:34)
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
[2020-10-14] MEDS: INSULIN ASPART 300 UNIT/3 ML PEN SUBQ SCH ×6 (08:31→20:30)
[2020-10-14] MEDS: MULTIVITAMIN W/MINERALS TABLET PO SCH (08:33)
[2020-10-14] MEDS: NICOTINE 14 MG PATCH TOP SCH (08:35)
[2020-10-14] MEDS: KETOROLAC 15 MG/ML VIAL IVP PRN (08:36)
[2020-10-14] MEDS: ENOXAPARIN 40 MG/0.4 ML SYRINGE SUBQ SCH (08:36)
[2020-10-14] MEDS: cefTRIAXone 1 GM in SODIUM CHLORIDE 0.9% MINIBAG 100 ML IV SCH (08:37)
[2020-10-14] MEDS: NYSTATIN POWDER 15 GM TOP SCH ×2 (08:39→20:29)
[2020-10-14] MEDS: SODIUM CHLORIDE 0.9% 1,000 ML IV SCH (08:54)
[2020-10-14] MEDS: SODIUM CHLORIDE FLUSH 0.9% 10 ML SYRINGE IVP PRN (08:56)
[2020-10-14] MEDS ORDERED: INSULIN GLARGINE 300 UNIT/3 ML PEN SUBQ SCH (21:00)
--- NOTE | 2020-10-14 21:01 | XRAY Report ---
PROCEDURE: Chest 1 View X-Ray INDICATIONS: SOB TECHNIQUE: One view of the chest was acquired. COMPARISON: Chest radiographs 10/12/2020 FINDINGS: Surgical changes and devices: The right internal jugular catheter is seen with in stable position. Lungs and pleura: There is mild prominence of the central pulmonary vasculature. The previously seen left pleural effusion has nearly completely resolved. There is mild atelectasis or edema at the left lung base. Mediastinum: Mediastinal contours appear normal. Heart size is mildly enlarged and stable. Bones and chest wall: No suspicious bony lesions. Overlying soft tissues appear unremarkable. IMPRESSION: 1. Decreased left pleural effusion and left lower lobe atelectasis, edema, or consolidation. 2. Mild cardiomegaly and prominence of the central pulmonary vasculature are again noted. Reviewed by: Abdi Beltran MD on 10/14/2020 9:00 PM PDT Approved by: Abdi Beltran MD on 10/14/2020 9:00 PM PDT Station ID: [id number]
[2020-10-14] MEDS ORDERED: FUROSEMIDE 20 MG/2 ML VIAL IVP STA (22:54)
[2020-10-14] MEDS: ACETAMINOPHEN 500 MG TABLET PO PRN (22:59)
[2020-10-14] MEDS ORDERED: FUROSEMIDE 20 MG/2 ML VIAL IVP ONE (23:00)
[2020-10-15] MEDS: ZINC OXIDE 20% OINT 30 GM TUBE TOP PRN (01:52)
[2020-10-15] MEDS: KETOROLAC 15 MG/ML VIAL IVP PRN ×3 (02:11→15:45)
[2020-10-15] MEDS: SODIUM CHLORIDE FLUSH 0.9% 10 ML SYRINGE IVP SCH ×3 (02:12→15:46)
[2020-10-15] MEDS: SODIUM CHLORIDE FLUSH 0.9% 10 ML SYRINGE IVP PRN ×2 (02:12→09:00)
[2020-10-15 04:55] LABS: BASOPHILS # (AUTO) 0.1 10^3/uL (0.0-0.1); BASOPHILS % (AUTO) 0.5 %; EOSINOPHILS # (AUTO) 0.3 10^3/uL (0.0-0.7); EOSINOPHILS % (AUTO) 2.8 %; HCT - HEMATOCRIT 46.3 % (42.0-52.0); HGB - HEMOGLOBIN 13.9 g/dL (14.0-18.0); LYMPHOCYTES # (AUTO) 1.8 10^3/uL (1.5-3.5); LYMPHOCYTES % (AUTO) 16.2 %; MEAN CORPUSCULAR HEMOGLOBIN 27.9 pg (27.0-31.0); MEAN PLATELET VOLUME 9.8 fL (7.4-11.4); MONOCYTES # (AUTO) 1.4 10^3/uL (0.0-1.0); MONOCYTES % (AUTO) 12.9 %; NEUTROPHILS # (AUTO) 7.3 10^3/uL (1.5-6.6); PLT - PLATELET COUNT 295 10^3/uL (130-450); RED BLOOD COUNT 4.98 10^6/uL (4.70-6.10); RED CELL DISTRIBUTION WIDTH 14.1 % (12.0-15.0)
[2020-10-15 05:06] LABS: CREATININE 0.7 mg/dL (0.6-1.2); MAGNESIUM 1.6 mg/dL (1.7-2.8); POTASSIUM 4.6 mmol/L (3.5-5.0)
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
[2020-10-15] MEDS: MULTIVITAMIN W/MINERALS TABLET PO SCH (09:00)
[2020-10-15] MEDS ORDERED: MAGNESIUM OXIDE 400 MG TABLET PO ONE (09:00)
[2020-10-15] MEDS: NYSTATIN POWDER 15 GM TOP SCH ×2 (09:00→20:30)
[2020-10-15] MEDS: THIAMINE 100 MG TABLET PO SCH (09:00)
[2020-10-15] MEDS: INSULIN ASPART 300 UNIT/3 ML PEN SUBQ SCH ×6 (09:34→20:30)
[2020-10-15] MEDS: FUROSEMIDE 40 MG/4 ML VIAL IVP SCH (09:35)
[2020-10-15] MEDS: ENOXAPARIN 40 MG/0.4 ML SYRINGE SUBQ SCH (09:35)
[2020-10-15] MEDS: polyethylene glycoL 3350 17 GM PACKET PO SCH (09:36)
[2020-10-15] MEDS: NICOTINE 14 MG PATCH TOP SCH (09:36)
[2020-10-15] MEDS: LACTOBACILLUS RHAMNOSUS GG CAPSULE PO SCH (10:00)
[2020-10-15] MEDS: IPRATROPIUM/ALBUTEROL 3 ML NEB INH PRN (12:43)
--- NOTE | 2020-10-15 16:39 | XRAY Report ---
PROCEDURE: Orbits Complete INDICATIONS: Eval for MRI. TECHNIQUE: Single view of the orbits acquired. COMPARISON: None FINDINGS: Bones: No fractures; orbital rims appear intact throughout. No suspicious bony lesions. Visualized sinuses appear clear. Soft tissues: No suspicious soft tissue calcifications or densities. IMPRESSION: No metallic foreign body found, no contraindication to MRI. Reviewed by: Santo Gamino MD on 10/15/2020 4:38 PM PDT Approved by: Santo Gamino MD on 10/15/2020 4:38 PM PDT Station ID: [id number]
[2020-10-15] MEDS: ACETAMINOPHEN 500 MG TABLET PO PRN (20:29)
[2020-10-15] MEDS ORDERED: INSULIN GLARGINE 300 UNIT/3 ML PEN SUBQ SCH (21:00)
[2020-10-16] MEDS: SODIUM CHLORIDE FLUSH 0.9% 10 ML SYRINGE IVP SCH ×4 (01:10→02:41)
[2020-10-16] MEDS: KETOROLAC 15 MG/ML VIAL IVP PRN ×2 (01:17→16:02)
[2020-10-16] MEDS ORDERED: FUROSEMIDE 40 MG/4 ML VIAL IVP STA (01:53)
[2020-10-16] MEDS: ACETAMINOPHEN 500 MG TABLET PO PRN ×2 (02:16→13:49)
[2020-10-16 06:14] LABS: BASOPHILS # (AUTO) 0.1 10^3/uL (0.0-0.1); BASOPHILS % (AUTO) 0.5 %; EOSINOPHILS # (AUTO) 0.5 10^3/uL (0.0-0.7); EOSINOPHILS % (AUTO) 4.7 %; HCT - HEMATOCRIT 45.6 % (42.0-52.0); LYMPHOCYTES # (AUTO) 1.7 10^3/uL (1.5-3.5); LYMPHOCYTES % (AUTO) 16.6 %; MEAN CORPUSCULAR HEMOGLOBIN 28.2 pg (27.0-31.0); MEAN CORPUSCULAR HGB CONC 30.7 g/dL (32.0-36.0); MEAN CORPUSCULAR VOLUME 91.8 fL (80.0-94.0); MEAN PLATELET VOLUME 9.7 fL (7.4-11.4); NEUTROPHILS % (AUTO) 66.5 %; PLT - PLATELET COUNT 301 10^3/uL (130-450); RED BLOOD COUNT 4.97 10^6/uL (4.70-6.10); WHITE BLOOD COUNT 10.5 x10^3/uL (4.8-10.8)
[2020-10-16 06:24] LABS: CALCIUM 8.8 mg/dL (8.5-10.3); CREATININE 0.7 mg/dL (0.6-1.2); MAGNESIUM 1.6 mg/dL (1.7-2.8); POTASSIUM 4.8 mmol/L (3.5-5.0)
--- NOTE | 2020-10-16 07:31 | PROVIDER PROGRESS NOTE ---
Subjective - Prog Note Date Prog Note Date: 10/16/20 - Subjective Subjective: He feels like his breathing has improved compared to yesterday. Still has an occasional cough. Does not feel his lower extremity edema has improved. Denies chest pain. Current Medications - Current Medications Current Medications: Active Medications Acetaminophen (Acetaminophen 500 Mg Tablet) 500 mg PO Q4HR PRN PRN Reason: Pain or Fever > 38C (100.4F) Last Admin: 10/16/20 13:49 Dose: 500 mg Documented by: Albuterol/Ipratropium (Ipratropium/Albuterol 3 Ml Neb) 3 ml INH RTQID PRN PRN Reason: Shortness of Air/Wheezing Last Admin: 10/16/20 13:21 Dose: 3 ml Documented by: Docusate Sodium (Docusate Sodium 250 Mg Capsule) 250 - 500 mg PO DAILY [facility] Last Admin: 10/16/20 08:20 Dose: 250 mg Documented by: Enoxaparin Sodium (Enoxaparin 40 Mg/0.4 Ml Syringe) 40 mg SUBQ DAILY [facility] Last Admin: 10/16/20 08:22 Dose: 40 mg Documented by: Furosemide (Furosemide 40 Mg/4 Ml Vial) 40 mg IVP DAILY [facility] Last Admin: 10/16/20 08:21 Dose: 40 mg Documented by: Insulin Aspart (Insulin Aspart 300 Unit/3 Ml Pen) 3 unit SUBQ TIDWM [facility] Last Admin: 10/16/20 11:45 Dose: 3 unit Documented by: Insulin Aspart (Insulin Aspart 300 Unit/3 Ml Pen) 1 - 5 unit SUBQ 0800,1200,1700,2100 [facility]; Protocol Last Admin: 10/16/20 11:46 Dose: 1 unit Documented by: Insulin Glargine (Insulin Glargine 300 Unit/3 Ml Pen) 15 unit SUBQ QPM [facility] Ketorolac Tromethamine (Ketorolac 15 Mg/Ml Vial) 15 mg IVP Q6HR PRN PRN Reason: PAIN Stop: 10/20/20 01:39 Last Admin: 10/16/20 01:17 Dose: 15 mg Documented by: Lactobacillus Rhamnosus (Lactobacillus Rhamnosus Gg Capsule) 1 cap PO DAILY [facility] Last Admin: 10/16/20 09:34 Dose: 1 cap Documented by: Magnesium Oxide (Magnesium Oxide 400 Mg Tablet) 400 mg PO DAILYWM [facility] Last Admin: 10/16/20 08:20 Dose: 400 mg Documented by: Mineral Oil (Min Oil/Dimethicon/Coconut Oil 92 Gm Tube) 1 applic TOP PRN PRN PRN Reason: Skin Care Multi-Ingredient Ointment (Zinc Oxide 20% Oint 30 Gm Tube) 1 applic TOP PRN PRN PRN Reason: Skin Care Last Admin: 10/15/20 01:52 Dose: 1 applic Documented by: Multivitamins/Minerals (Multivitamin W/Minerals Tablet) 1 tab PO DAILYWM [facility] Last Admin: 10/16/20 08:21 Dose: 1 tab Documented by: Nicotine (Nicotine 14 Mg Patch) 1 patch TOP DAILY [facility] Last Admin: 10/16/20 08:21 Dose: 1 patch Documented by: Nystatin (Nystatin Powder 15 Gm) 0 applic TOP BID [facility] Last Admin: 10/16/20 09:35 Dose: 1 applic Documented by: Polyethylene Glycol (Polyethylene Glycol 3350 17 Gm Packet) 17 gm PO DAILY [facility] Last Admin: 10/16/20 09:34 Dose: 17 gm Documented by: Senna (Senna 8.6 Mg Tablet) 8.6 - 17.2 mg PO DAILY [facility] Last Admin: 10/16/20 09:34 Dose: 8.6 mg Documented by: Sodium Chloride (Sodium Chloride Flush 0.9% 10 Ml Syringe) 10 ml IVP PRN PRN PRN Reason: NEEDED PER PROVIDER ORDERS Last Admin: 10/15/20 09:00 Dose: 10 ml Documented by: Sodium Chloride (Sodium Chloride Flush 0.9% 10 Ml Syringe) 10 ml IVP 0100,0900,1700 [facility] Last Admin: 10/16/20 02:41 Dose: 10 ml Documented by: Thiamine HCl (Thiamine 100 Mg Tablet) 100 mg PO DAILY [facility] Last Admin: 10/16/20 08:20 Dose: 100 mg Documented by: Albuterol Sulf [Ventolin Hfa Inhaler] 2 puffs PO Q4H PRN 10/10/20 Budesonide/Formoterol Fumarate [Symbicort 160-4.5 Mcg Inhaler] 1 inh PO BID 10/10/20 Sertraline [Zoloft] 25 mg PO DAILY 10/10/20 Zolpidem Tartrate [Ambien] 10 mg PO QPM PRN 10/10/20 Objective - Vital Signs/Intake & Output Reviewed Vital Signs: Yes Vital Signs: Vital Signs x48h Temp Pulse Resp BP Pulse Ox 10/16/20 07:27 36.5 C 65 24 116/79 100 10/16/20 05:00 36.0 C L 70 30 H 125/61 95 10/16/20 01:45 36 H 97 10/16/20 00:00 35.5 C L 76 26 H 133/90 H 97 Intake & Output: Intake & Output 10/13/20 10/14/20 10/15/20 10/16/20 23:59 23:59 23:59 23:59 Intake Total 3510 4734 2590 1000 Output Total 900 1675 1950 1500 Balance 2610 3059 640 -500 - Objective General Appearance: positive: No acute distress, Alert Eyes Bilateral: positive: Normal inspection, Conjunctivae nml ENT: positive: ENT inspection nml, Other (Nasal cannula in place.) Neck: positive: Nml inspection Respiratory: positive: No respiratory distress, Rales, Rhonchi, Other (He is less tachypneic today. Appears more comfortable.). negative: Wheezes Cardiovascular: negative: Irregularly irregular, Tachycardia, Bradycardia Abdomen: positive: Non-tender, No distention. negative: Tenderness Skin: positive: Warm, Dry Extremities: positive: Pedal edema (+2 pitting edema in the bilateral lower extremities.) Neurologic/Psychiatric: positive: Disoriented to time. negative: Disoriented to person, Disoriented to place - Lab Results Fish Bones: 10/16/20 05:56 10/16/20 05:56 Other Labs: Lab Results x24hrs 10/16/20 10/16/20 10/16/20 Range/Units 07:18 05:56 05:56 WBC 10.5 (4.8-10.8) x10^3/uL RBC 4.97 (4.70-6.10) 10^6/uL Hgb 14.0 (14.0-18.0) g/dL Hct 45.6 (42.0-52.0) % MCV 91.8 (80.0-94.0) fL MCH 28.2 (27.0-31.0) pg MCHC 30.7 L (32.0-36.0) g/dL RDW 14.0 (12.0-15.0) % Plt Count 301 (130-450) 10^3/uL MPV 9.7 (7.4-11.4) fL Neut # (Auto) 7.0 H (1.5-6.6) 10^3/uL Lymph # (Auto) 1.7 (1.5-3.5) 10^3/uL Quay # (Auto) 1.0 (0.0-1.0) 10^3/uL Eos # (Auto) 0.5 (0.0-0.7) 10^3/uL Baso # (Auto) 0.1 (0.0-0.1) 10^3/uL Absolute Nucleated RBC 0.00 x10^3/uL Nucleated RBC % 0.0 /100WBC Sodium 139 (135-145) mmol/L Potassium 4.8 (3.5-5.0) mmol/L Chloride 97 L (101-111) mmol/L Carbon Dioxide 36 H (21-32) mmol/L Anion Gap 6.0 (6-13) BUN 31 H (6-20) mg/dL Creatinine 0.7 (0.6-1.2) mg/dL Estimated GFR (MDRD) 111 (>89) Glucose 82 (70-100) mg/dL POC Whole Bld Glucose 57 L* (70 - 100) mg/dL Calcium 8.8 (8.5-10.3) mg/dL Magnesium 1.6 L (1.7-2.8) mg/dL Ammonia (7-35) umol/L 10/15/20 10/15/20 10/15/20 Range/Units 20:17 17:13 11:36 WBC (4.8-10.8) x10^3/uL RBC (4.70-6.10) 10^6/uL Hgb (14.0-18.0) g/dL Hct (42.0-52.0) % MCV (80.0-94.0) fL MCH (27.0-31.0) pg MCHC (32.0-36.0) g/dL RDW (12.0-15.0) % Plt Count (130-450) 10^3/uL MPV (7.4-11.4) fL Neut # (Auto) (1.5-6.6) 10^3/uL Lymph # (Auto) (1.5-3.5) 10^3/uL Quay # (Auto) (0.0-1.0) 10^3/uL Eos # (Auto) (0.0-0.7) 10^3/uL Baso # (Auto) (0.0-0.1) 10^3/uL Absolute Nucleated RBC x10^3/uL Nucleated RBC % /100WBC Sodium (135-145) mmol/L Potassium (3.5-5.0) mmol/L Chloride (101-111) mmol/L Carbon Dioxide (21-32) mmol/L Anion Gap (6-13) BUN (6-20) mg/dL Creatinine (0.6-1.2) mg/dL Estimated GFR (MDRD) (>89) Glucose (70-100) mg/dL POC Whole Bld Glucose 225 H 145 H 105 H (70 - 100) mg/dL Calcium (8.5-10.3) mg/dL Magnesium (1.7-2.8) mg/dL Ammonia (7-35) umol/L 10/15/20 10/15/20 10/15/20 Range/Units 10:37 08:32 08:10 WBC (4.8-10.8) x10^3/uL RBC (4.70-6.10) 10^6/uL Hgb (14.0-18.0) g/dL Hct (42.0-52.0) % MCV (80.0-94.0) fL MCH (27.0-31.0) pg MCHC (32.0-36.0) g/dL RDW (12.0-15.0) % Plt Count (130-450) 10^3/uL MPV (7.4-11.4) fL Neut # (Auto) (1.5-6.6) 10^3/uL Lymph # (Auto) (1.5-3.5) 10^3/uL Quay # (Auto) (0.0-1.0) 10^3/uL Eos # (Auto) (0.0-0.7) 10^3/uL Baso # (Auto) (0.0-0.1) 10^3/uL Absolute Nucleated RBC x10^3/uL Nucleated RBC % /100WBC Sodium (135-145) mmol/L Potassium (3.5-5.0) mmol/L Chloride (101-111) mmol/L Carbon Dioxide (21-32) mmol/L Anion Gap (6-13) BUN (6-20) mg/dL Creatinine (0.6-1.2) mg/dL Estimated GFR (MDRD) (>89) Glucose (70-100) mg/dL POC Whole Bld Glucose 126 H 75 (70 - 100) mg/dL Calcium (8.5-10.3) mg/dL Magnesium (1.7-2.8) mg/dL Ammonia 24.2 (7-35) umol/L 10/15/20 Range/Units 07:36 WBC (4.8-10.8) x10^3/uL RBC (4.70-6.10) 10^6/uL Hgb (14.0-18.0) g/dL Hct (42.0-52.0) % MCV (80.0-94.0) fL MCH (27.0-31.0) pg MCHC (32.0-36.0) g/dL RDW (12.0-15.0) % Plt Count (130-450) 10^3/uL MPV (7.4-11.4) fL Neut # (Auto) (1.5-6.6) 10^3/uL Lymph # (Auto) (1.5-3.5) 10^3/uL Quay # (Auto) (0.0-1.0) 10^3/uL Eos # (Auto) (0.0-0.7) 10^3/uL Baso # (Auto) (0.0-0.1) 10^3/uL Absolute Nucleated RBC x10^3/uL Nucleated RBC % /100WBC Sodium (135-145) mmol/L Potassium (3.5-5.0) mmol/L Chloride (101-111) mmol/L Carbon Dioxide (21-32) mmol/L Anion Gap (6-13) BUN (6-20) mg/dL Creatinine (0.6-1.2) mg/dL Estimated GFR (MDRD) (>89) Glucose (70-100) mg/dL POC Whole Bld Glucose 45 L* (70 - 100) mg/dL Calcium (8.5-10.3) mg/dL Magnesium (1.7-2.8) mg/dL Ammonia (7-35) umol/L ABX Reporting Has patient been on IV antibiotics over the past 48 hours?: No Sepsis Event Note (H) - Evaluation Current Stage of Sepsis: Sepsis Possible source of Sepsis: positive: Pulmonary, Wound - Sepsis Criteria Sepsis Criteria: Recorded Temperature greater than 38.3C or Less than 36C, Recorded Heart Rate greater than 90 bpm, Recorded Respiratory Rate greater than 20 (as above, the hypothermia, HR, and RR could be due to extreme volume depletion) Assessment/Plan - Problem List (1) Acute respiratory failure with hypoxia Impression: This was initially secondary to community-acquired pneumonia but now due to acute diastolic heart failure. He remains on 2 L of oxygen via nasal cannula. We have discontinued IV antibiotics as he completed 5 days of ceftriaxone and 3 days of azithromycin. He remains on IV Lasix. Suspect likely another 24 to 40 hours of IV diuresis before switching to oral. (2) Acute congestive heart failure Impression: This is the cause of his acute respiratory failure with hypoxia now. He remains on 2 L of oxygen via nasal cannula but his oxygen saturations are improved and I am hopeful we can wean this over the next 24 hours. He still had a positive fluid balance yesterday but this was improved compared to the prior days and today he has a negative fluid balance of 2.7 L. His echocardiogram revealed a preserved ejection fraction. We will continue 4 mg of Lasix IV daily. Continue strict I's and O's and daily weights. We will repeat a BNP tomorrow. We have ordered a duplex to ensure there is no evidence of DVT. Qualifiers: Heart failure type: diastolic Qualified Code(s): I50.31 - Acute diastolic (congestive) heart failure (3) Cognitive impairment Impression: He was quite encephalopathic initially which was felt to be due to volume depletion and the pneumonia. He is oriented to self and location but otherwise is a poor historian and likely does have cognitive impairment at baseline. We did attempt to obtain MRI of the brain yesterday but he did not tolerate this and we do not have MRI available now until Tuesday of next week. He will not be a safe discharge home given his poor insight to his medical problems and self- neglect. We are looking to discharge him to a skilled nurse facility once medically stable. (4) Uncontrolled diabetes mellitus with hyperglycemia Impression: He had another episode of hypoglycemia this morning. We had reduced his Lantus yesterday and we will do so again down to 15 units. I have also reduced his sliding scale to low-dose. Continue 3 units of novlog with meals. Qualifiers: Diabetes mellitus type: type 2 Qualified Code(s): E11.65 - Type 2 diabetes mellitus with hyperglycemia (5) Self-care deficit Impression: He presented with evidence of self-neglect given his multiple skin abrasions. There have also been multiple APS reports in the past. Appreciate social work input regarding disposition. (6) Acute kidney injury Impression: Resolved. (7) Community acquired bacterial pneumonia Impression: This was the initial cause of his respiratory failure. He has since completed treatment with ceftriaxone and azithromycin.
[2020-10-16] MEDS ORDERED: DEXTROSE 25% ABBOJECT 2.5 GM/10 ML SYRINGE IVP ONE (07:45)
[2020-10-16] MEDS ORDERED: DEXTROSE 50% ABBOJECT 25 GM/50 ML SYRINGE IVP ONE (07:56)
[2020-10-16] MEDS: INSULIN ASPART 300 UNIT/3 ML PEN SUBQ SCH ×7 (08:03→21:34)
[2020-10-16] MEDS: DOCUSATE SODIUM 250 MG CAPSULE PO SCH (08:20)
[2020-10-16] MEDS: THIAMINE 100 MG TABLET PO SCH (08:20)
[2020-10-16] MEDS: MAGNESIUM OXIDE 400 MG TABLET PO SCH (08:20)
[2020-10-16] MEDS: NICOTINE 14 MG PATCH TOP SCH (08:21)
[2020-10-16] MEDS: MULTIVITAMIN W/MINERALS TABLET PO SCH (08:21)
[2020-10-16] MEDS: FUROSEMIDE 40 MG/4 ML VIAL IVP SCH (08:21)
[2020-10-16] MEDS: ENOXAPARIN 40 MG/0.4 ML SYRINGE SUBQ SCH (08:22)
[2020-10-16] MEDS: SENNA 8.6 MG TABLET PO SCH (09:34)
[2020-10-16] MEDS: LACTOBACILLUS RHAMNOSUS GG CAPSULE PO SCH (09:34)
[2020-10-16] MEDS: polyethylene glycoL 3350 17 GM PACKET PO SCH (09:34)
[2020-10-16] MEDS: NYSTATIN POWDER 15 GM TOP SCH ×2 (09:35→19:23)
[2020-10-16] MEDS: IPRATROPIUM/ALBUTEROL 3 ML NEB INH PRN (13:21)
[2020-10-16] MEDS: SODIUM CHLORIDE FLUSH 0.9% 10 ML SYRINGE IVP PRN (16:02)
[2020-10-16] MEDS: ZINC OXIDE 20% OINT 30 GM TUBE TOP PRN (19:24)
[2020-10-16] MEDS: INSULIN GLARGINE 300 UNIT/3 ML PEN SUBQ SCH (21:34)
[2020-10-17] MEDS: KETOROLAC 15 MG/ML VIAL IVP PRN ×4 (01:35→20:48)
[2020-10-17] MEDS: SODIUM CHLORIDE FLUSH 0.9% 10 ML SYRINGE IVP SCH ×2 (01:36→06:20)
[2020-10-17 06:42] LABS: BASOPHILS # (AUTO) 0.1 10^3/uL (0.0-0.1); BASOPHILS % (AUTO) 0.4 %; EOSINOPHILS # (AUTO) 0.4 10^3/uL (0.0-0.7); EOSINOPHILS % (AUTO) 3.7 %; HCT - HEMATOCRIT 44.7 % (42.0-52.0); HGB - HEMOGLOBIN 13.9 g/dL (14.0-18.0); LYMPHOCYTES # (AUTO) 1.7 10^3/uL (1.5-3.5); MEAN CORPUSCULAR HGB CONC 31.1 g/dL (32.0-36.0); MEAN CORPUSCULAR VOLUME 90.1 fL (80.0-94.0); MEAN PLATELET VOLUME 9.7 fL (7.4-11.4); MONOCYTES # (AUTO) 1.1 10^3/uL (0.0-1.0); NEUTROPHILS # (AUTO) 8.6 10^3/uL (1.5-6.6); NEUTROPHILS % (AUTO) 71.6 %; PLT - PLATELET COUNT 306 10^3/uL (130-450); RED BLOOD COUNT 4.96 10^6/uL (4.70-6.10); RED CELL DISTRIBUTION WIDTH 14.1 % (12.0-15.0)
[2020-10-17 06:50] LABS: CALCIUM 8.8 mg/dL (8.5-10.3); CREATININE 0.7 mg/dL (0.6-1.2); MAGNESIUM 1.5 mg/dL (1.7-2.8)
--- NOTE | 2020-10-17 07:14 | Ultrasound Report ---
PROCEDURE: Duplex Ext Veins Bilateral INDICATIONS: Lower extremity edema. TECHNIQUE: Real-time imaging, as well as color and pulse Doppler interrogation, were performed of the deep veins of both legs from the inguinal ligament to the popliteal fossa. COMPARISON: None FINDINGS: The deep veins of the right and left lower extremities are normally compressible, and free of intraluminal thrombus. Color and pulse Doppler demonstrate normal phasic intravascular flow in t he deep veins of the right left lower extremities. There is normal augmentation response to distal c ompression maneuver. IMPRESSION: No evidence of deep vein thrombosis involving the right or left lower extremities. Reviewed by: Ellen Wynne MD, PhD on 10/17/2020 7:13 AM PDT Approved by: Ellen Wynne MD, PhD on 10/17/2020 7:13 AM PDT Station ID: [id number]
--- NOTE | 2020-10-17 07:38 | PROVIDER PROGRESS NOTE ---
Subjective - Prog Note Date Prog Note Date: 10/17/20 - Subjective Subjective: He feels like his breathing continues to improve. Still feels short of breath with activity. Denies chest pain or leg pain. Feels like his edema is slightly improved. Current Medications - Current Medications Current Medications: Active Medications Acetaminophen (Acetaminophen 500 Mg Tablet) 500 mg PO Q4HR PRN PRN Reason: Pain or Fever > 38C (100.4F) Last Admin: 10/16/20 13:49 Dose: 500 mg Documented by: Albuterol/Ipratropium (Ipratropium/Albuterol 3 Ml Neb) 3 ml INH RTQID PRN PRN Reason: Shortness of Air/Wheezing Last Admin: 10/16/20 13:21 Dose: 3 ml Documented by: Docusate Sodium (Docusate Sodium 250 Mg Capsule) 250 - 500 mg PO DAILY [facility] Last Admin: 10/16/20 08:20 Dose: 250 mg Documented by: Enoxaparin Sodium (Enoxaparin 40 Mg/0.4 Ml Syringe) 40 mg SUBQ DAILY [facility] Last Admin: 10/16/20 08:22 Dose: 40 mg Documented by: Furosemide (Furosemide 40 Mg/4 Ml Vial) 40 mg IVP DAILY [facility] Last Admin: 10/16/20 08:21 Dose: 40 mg Documented by: Insulin Aspart (Insulin Aspart 300 Unit/3 Ml Pen) 3 unit SUBQ TIDWM [facility] Last Admin: 10/16/20 16:39 Dose: 3 unit Documented by: Insulin Aspart (Insulin Aspart 300 Unit/3 Ml Pen) 1 - 5 unit SUBQ 0800,1200,1700,2100 [facility]; Protocol Last Admin: 10/16/20 21:34 Dose: 3 unit Documented by: Insulin Glargine (Insulin Glargine 300 Unit/3 Ml Pen) 15 unit SUBQ QPM [facility] Last Admin: 10/16/20 21:34 Dose: 15 unit Documented by: Ketorolac Tromethamine (Ketorolac 15 Mg/Ml Vial) 15 mg IVP Q6HR PRN PRN Reason: PAIN Stop: 10/20/20 01:39 Last Admin: 10/17/20 01:35 Dose: 15 mg Documented by: Lactobacillus Rhamnosus (Lactobacillus Rhamnosus Gg Capsule) 1 cap PO DAILY [facility] Last Admin: 10/16/20 09:34 Dose: 1 cap Documented by: Magnesium Oxide (Magnesium Oxide 400 Mg Tablet) 400 mg PO DAILYWM [facility] Last Admin: 10/16/20 08:20 Dose: 400 mg Documented by: Mineral Oil (Min Oil/Dimethicon/Coconut Oil 92 Gm Tube) 1 applic TOP PRN PRN PRN Reason: Skin Care Multi-Ingredient Ointment (Zinc Oxide 20% Oint 30 Gm Tube) 1 applic TOP PRN PRN PRN Reason: Skin Care Last Admin: 10/16/20 19:24 Dose: 1 applic Documented by: Multivitamins/Minerals (Multivitamin W/Minerals Tablet) 1 tab PO DAILYWM [facility] Last Admin: 10/16/20 08:21 Dose: 1 tab Documented by: Nicotine (Nicotine 14 Mg Patch) 1 patch TOP DAILY [facility] Last Admin: 10/16/20 08:21 Dose: 1 patch Documented by: Nystatin (Nystatin Powder 15 Gm) 0 applic TOP BID [facility] Last Admin: 10/16/20 19:23 Dose: 1 applic Documented by: Polyethylene Glycol (Polyethylene Glycol 3350 17 Gm Packet) 17 gm PO DAILY [facility] Last Admin: 10/16/20 09:34 Dose: 17 gm Documented by: Senna (Senna 8.6 Mg Tablet) 8.6 - 17.2 mg PO DAILY [facility] Last Admin: 10/16/20 09:34 Dose: 8.6 mg Documented by: Sodium Chloride (Sodium Chloride Flush 0.9% 10 Ml Syringe) 10 ml IVP PRN PRN PRN Reason: NEEDED PER PROVIDER ORDERS Last Admin: 10/16/20 16:02 Dose: 10 ml Documented by: Sodium Chloride (Sodium Chloride Flush 0.9% 10 Ml Syringe) 10 ml IVP 0100,0900,1700 [facility] Last Admin: 10/17/20 06:20 Dose: 10 ml Documented by: Thiamine HCl (Thiamine 100 Mg Tablet) 100 mg PO DAILY [facility] Last Admin: 10/16/20 08:20 Dose: 100 mg Documented by: Albuterol Sulf [Ventolin Hfa Inhaler] 2 puffs PO Q4H PRN 10/10/20 Budesonide/Formoterol Fumarate [Symbicort 160-4.5 Mcg Inhaler] 1 inh PO BID 10/10/20 Sertraline [Zoloft] 25 mg PO DAILY 10/10/20 Zolpidem Tartrate [Ambien] 10 mg PO QPM PRN 10/10/20 Objective - Vital Signs/Intake & Output Reviewed Vital Signs: Yes Vital Signs: Vital Signs x48h Temp Pulse Resp BP Pulse Ox 10/17/20 05:00 36.6 C 72 23 157/91 H 95 Intake & Output: Intake & Output 10/14/20 10/15/20 10/16/20 10/17/20 23:59 23:59 23:59 23:59 Intake Total 4734 2590 3000 250 Output Total 1675 1950 5100 1000 Balance 3059 640 -5044 -750 - Objective General Appearance: positive: No acute distress, Alert Eyes Bilateral: positive: Normal inspection, Conjunctivae nml ENT: positive: ENT inspection nml, Other (Nasal cannula in place.) Respiratory: positive: No respiratory distress, Rales (There are still rales present bilaterally although this sounds improved.) Cardiovascular: positive: Regular rate & rhythm. negative: Tachycardia, Systolic murmur Abdomen: positive: Non-tender, No distention. negative: Tenderness Skin: positive: Warm, Dry Extremities: positive: Pedal edema (He still has +2 pitting edema but this appears improved), Other (Pulses diminished bilaterally in the dorsalis pedis.) Neurologic/Psychiatric: positive: Disoriented to time. negative: Disoriented to person, Disoriented to place - Lab Results Fish Bones: 10/17/20 05:26 10/17/20 05:26 Other Labs: Lab Results x24hrs 10/17/20 10/17/20 10/17/20 Range/Units 05:26 05:26 05:26 WBC 12.0 H (4.8-10.8) x10^3/uL RBC 4.96 (4.70-6.10) 10^6/uL Hgb 13.9 L (14.0-18.0) g/dL Hct 44.7 (42.0-52.0) % MCV 90.1 (80.0-94.0) fL MCH 28.0 (27.0-31.0) pg MCHC 31.1 L (32.0-36.0) g/dL RDW 14.1 (12.0-15.0) % Plt Count 306 (130-450) 10^3/uL MPV 9.7 (7.4-11.4) fL Neut # (Auto) 8.6 H (1.5-6.6) 10^3/uL Lymph # (Auto) 1.7 (1.5-3.5) 10^3/uL Bowman # (Auto) 1.1 H (0.0-1.0) 10^3/uL Eos # (Auto) 0.4 (0.0-0.7) 10^3/uL Baso # (Auto) 0.1 (0.0-0.1) 10^3/uL Absolute Nucleated RBC 0.00 x10^3/uL Nucleated RBC % 0.0 /100WBC Sodium 137 (135-145) mmol/L Potassium 5.0 (3.5-5.0) mmol/L Chloride 92 L (101-111) mmol/L Carbon Dioxide 37 H (21-32) mmol/L Anion Gap 8.0 (6-13) BUN 28 H (6-20) mg/dL Creatinine 0.7 (0.6-1.2) mg/dL Estimated GFR (MDRD) 111 (>89) Glucose 159 H (70-100) mg/dL POC Whole Bld Glucose (70 - 100) mg/dL Calcium 8.8 (8.5-10.3) mg/dL Magnesium 1.5 L (1.7-2.8) mg/dL B-Natriuretic Peptide 507 H (5-100) pg/mL 10/16/20 10/16/20 10/16/20 Range/Units 20:21 16:36 11:24 WBC (4.8-10.8) x10^3/uL RBC (4.70-6.10) 10^6/uL Hgb (14.0-18.0) g/dL Hct (42.0-52.0) % MCV (80.0-94.0) fL MCH (27.0-31.0) pg MCHC (32.0-36.0) g/dL RDW (12.0-15.0) % Plt Count (130-450) 10^3/uL MPV (7.4-11.4) fL Neut # (Auto) (1.5-6.6) 10^3/uL Lymph # (Auto) (1.5-3.5) 10^3/uL Bowman # (Auto) (0.0-1.0) 10^3/uL Eos # (Auto) (0.0-0.7) 10^3/uL Baso # (Auto) (0.0-0.1) 10^3/uL Absolute Nucleated RBC x10^3/uL Nucleated RBC % /100WBC Sodium (135-145) mmol/L Potassium (3.5-5.0) mmol/L Chloride (101-111) mmol/L Carbon Dioxide (21-32) mmol/L Anion Gap (6-13) BUN (6-20) mg/dL Creatinine (0.6-1.2) mg/dL Estimated GFR (MDRD) (>89) Glucose (70-100) mg/dL POC Whole Bld Glucose 256 H 231 H 176 H (70 - 100) mg/dL Calcium (8.5-10.3) mg/dL Magnesium (1.7-2.8) mg/dL B-Natriuretic Peptide (5-100) pg/mL 10/16/20 10/16/20 Range/Units 08:04 07:41 WBC (4.8-10.8) x10^3/uL RBC (4.70-6.10) 10^6/uL Hgb (14.0-18.0) g/dL Hct (42.0-52.0) % MCV (80.0-94.0) fL MCH (27.0-31.0) pg MCHC (32.0-36.0) g/dL RDW (12.0-15.0) % Plt Count (130-450) 10^3/uL MPV (7.4-11.4) fL Neut # (Auto) (1.5-6.6) 10^3/uL Lymph # (Auto) (1.5-3.5) 10^3/uL Bowman # (Auto) (0.0-1.0) 10^3/uL Eos # (Auto) (0.0-0.7) 10^3/uL Baso # (Auto) (0.0-0.1) 10^3/uL Absolute Nucleated RBC x10^3/uL Nucleated RBC % /100WBC Sodium (135-145) mmol/L Potassium (3.5-5.0) mmol/L Chloride (101-111) mmol/L Carbon Dioxide (21-32) mmol/L Anion Gap (6-13) BUN (6-20) mg/dL Creatinine (0.6-1.2) mg/dL Estimated GFR (MDRD) (>89) Glucose (70-100) mg/dL POC Whole Bld Glucose 87 50 L* (70 - 100) mg/dL Calcium (8.5-10.3) mg/dL Magnesium (1.7-2.8) mg/dL B-Natriuretic Peptide (5-100) pg/mL ABX Reporting Has patient been on IV antibiotics over the past 48 hours?: No Sepsis Event Note (H) - Evaluation Current Stage of Sepsis: Sepsis Possible source of Sepsis: positive: Pulmonary, Wound - Sepsis Criteria Sepsis Criteria: Recorded Temperature greater than 38.3C or Less than 36C, Recorded Heart Rate greater than 90 bpm, Recorded Respiratory Rate greater than 20 (as above, the hypothermia, HR, and RR could be due to extreme volume depletion) Assessment/Plan - Problem List (1) Acute respiratory failure with hypoxia Impression: He continues to slowly improve. He is down to 1.5 L of oxygen. This is secondary to acute diastolic heart failure. He had a negative fluid balance of 2.1 L yesterday. He is responding well to diuresis although still appears quite uncomfortable and is hypoxic. We will continue with Lasix 40 mg IV daily. Continue with daily weights and strict I's and O's. Low-sodium diet. Goal oxygen saturation is greater than 88% given his history of COPD. (2) Acute congestive heart failure Impression: This is the cause of his respiratory failure. Patient oxygen requirements are improving but he still remained hypoxic and quite edematous. He did have a negative fluid balance yesterday of 2.1 L. His BNP today is decreased to 500. Echocardiogram revealed a preserved ejection fraction. We will continue to diurese him with Lasix 40mg IV daily. We will consider an additional dose in the afternoon.. Strict I's and O's and daily weights. Low-sodium diet. Qualifiers: Heart failure type: diastolic Qualified Code(s): I50.31 - Acute diastolic (congestive) heart failure (3) Cognitive impairment Impression: He was quite encephalopathic initially which was felt to be due to volume depletion and the pneumonia. He is oriented to self and location but otherwise is a poor historian and likely does have cognitive impairment at baseline. We did attempt to obtain MRI of the brain but he did not tolerate this. I suspect he is close to his baseline at this time. Once his respiratory issues have resolved, he can be discharged to a custodial facility. (4) Uncontrolled diabetes mellitus with hyperglycemia Impression: He has had no further episodes of hypoglycemia since we decreased his Lantus dose. We will keep him on 15 units of Lantus and 3 minutes of NovoLog with meals. He will need insulin on discharge. His A1c was greater than 14%. Qualifiers: Diabetes mellitus type: type 2 Qualified Code(s): E11.65 - Type 2 diabetes mellitus with hyperglycemia (5) Peripheral vascular disease Impression: Given his diminished pulses, we did obtain duplex of the lower extremities which showed mild to moderate diffuse right SFA disease without focal hemodynamically significant stenosis. Left lower extremity runoff significant for suggestive of possible significant SFA stenosis. There is also monophasic low distance flow the distal runoff vessels suggesting more proximal stenosis. There is currently no obvious evidence of ischemia. We will start him on aspirin and Lipitor. If he develops evidence of acute ischemia then we will contact vascular surgery otherwise will recommend outpatient follow-up. (6) Self-care deficit Impression: He presented with evidence of self-neglect given his multiple skin abrasions. There have also been multiple APS reports in the past. Appreciate social work input regarding disposition. (7) Acute kidney injury Impression: Resolved. (8) Community acquired bacterial pneumonia Impression: This was the initial cause of his respiratory failure. He has since completed treatment with ceftriaxone and azithromycin.
[2020-10-17] MEDS: INSULIN ASPART 300 UNIT/3 ML PEN SUBQ SCH ×7 (07:51→20:28)
[2020-10-17] MEDS: MAGNESIUM OXIDE 400 MG TABLET PO SCH (08:01)
[2020-10-17] MEDS: MULTIVITAMIN W/MINERALS TABLET PO SCH (08:01)
[2020-10-17] MEDS: DOCUSATE SODIUM 250 MG CAPSULE PO SCH (08:14)
[2020-10-17] MEDS: polyethylene glycoL 3350 17 GM PACKET PO SCH (08:14)
[2020-10-17] MEDS: SENNA 8.6 MG TABLET PO SCH (08:14)
[2020-10-17] MEDS: ENOXAPARIN 40 MG/0.4 ML SYRINGE SUBQ SCH (08:16)
[2020-10-17] MEDS: NICOTINE 14 MG PATCH TOP SCH (08:21)
[2020-10-17] MEDS: NYSTATIN POWDER 15 GM TOP SCH ×2 (08:21→20:29)
[2020-10-17] MEDS: LACTOBACILLUS RHAMNOSUS GG CAPSULE PO SCH (08:24)
[2020-10-17] MEDS: FUROSEMIDE 40 MG/4 ML VIAL IVP SCH (08:24)
[2020-10-17] MEDS: THIAMINE 100 MG TABLET PO SCH (08:25)
--- NOTE | 2020-10-17 13:26 | Ultrasound Report ---
PROCEDURE: Duplex Lwr Ext Arterial Bilat INDICATIONS: Diminished pulses. TECHNIQUE: Color and pulse Doppler interrogation was performed of both lower extremity arterial systems, with im age documentation. COMPARISON: None FINDINGS: Right lower extremity: Common femoral artery: 121 cm/sec, with triphasic flow. Deep femoral artery: 92 cm/sec, with triphasic flow. Proximal superficial femoral artery: 126 cm/sec, with triphasic flow. Mid superficial femoral artery: 126 cm/sec, with triphasic flow. Distal superficial femoral artery: 182 cm/sec, with triphasic flow. Popliteal artery: 53 cm/sec, with triphasic flow. Posterior tibial artery: 30 cm/sec, with triphasic flow. Anterior tibial artery/dorsalis pedis: 80 cm/sec, with triphasic flow. Luis-scale imaging description: Diffuse plaque. Mild to moderate diffuse SFA disease without focal v elocity measurements suggesting a focal hemodynamically significant stenosis. At least two-vessel run off. Left lower extremity: Common femoral artery: 172 cm/sec, with biphasic flow. Deep femoral artery: 82 cm/sec, with biphasic flow. Proximal superficial femoral artery: 105 cm/sec, with triphasic flow. Mid superficial femoral artery: 95 cm/sec, with monophasic flow. Distal superficial femoral artery: 109 cm/sec, with monophasic flow. Popliteal artery: 90 cm/sec, with triphasic flow. Posterior tibial artery: 138 cm/sec, with monophasic flow. Anterior tibial artery/dorsalis pedis: 107 cm/sec, with monophasic flow. Luis-scale imaging description: Diffuse plaque. No hemodynamically significant stenosis identified f rom the common femoral through the popliteal. However, monophasic waveforms in the mid and distal SFA suggests possible significant disease. There is monophasic low resistance flow in the posterior tibi al and anterior tibial suggesting stenotic disease more proximally. IMPRESSION: 1. There is diffuse plaque bilaterally. 2. Mild to moderate diffuse right SFA disease without focal hemodynamically significant stenosis iden tified. 3. Left lower extremity runoff significant for suggestion of a possible significant SFA stenosis. The re is also monophasic low resistance flow in the distal runoff vessels suggesting more proximal steno sis. Comment: Consider CTA or MRA of the aorta and runoff vessels. Reviewed by: Harris Martinez MD on 10/17/2020 1:24 PM PDT Approved by: Harris Martinez MD on 10/17/2020 1:24 PM PDT Station ID: [id number]
[2020-10-17] MEDS ORDERED: FUROSEMIDE 20 MG/2 ML VIAL IVP STA (18:30)
[2020-10-17] MEDS: ACETAMINOPHEN 500 MG TABLET PO PRN (19:52)
[2020-10-17] MEDS: ATORVASTATIN 40 MG TABLET PO SCH (20:28)
[2020-10-17] MEDS: INSULIN GLARGINE 300 UNIT/3 ML PEN SUBQ SCH (20:28)
[2020-10-17] MEDS: ZINC OXIDE 20% OINT 30 GM TUBE TOP PRN (20:29)
[2020-10-18] MEDS: ACETAMINOPHEN 500 MG TABLET PO PRN ×3 (00:50→23:57)
[2020-10-18] MEDS: IPRATROPIUM/ALBUTEROL 3 ML NEB INH PRN (00:56)
[2020-10-18 05:46] LABS: BASOPHILS # (AUTO) 0.1 10^3/uL (0.0-0.1); BASOPHILS % (AUTO) 0.5 %; EOSINOPHILS # (AUTO) 0.5 10^3/uL (0.0-0.7); EOSINOPHILS % (AUTO) 4.7 %; HCT - HEMATOCRIT 44.5 % (42.0-52.0); HGB - HEMOGLOBIN 13.4 g/dL (14.0-18.0); LYMPHOCYTES # (AUTO) 1.7 10^3/uL (1.5-3.5); LYMPHOCYTES % (AUTO) 17.8 %; MEAN CORPUSCULAR HEMOGLOBIN 27.7 pg (27.0-31.0); MEAN CORPUSCULAR HGB CONC 30.1 g/dL (32.0-36.0); MEAN CORPUSCULAR VOLUME 91.9 fL (80.0-94.0); MEAN PLATELET VOLUME 9.5 fL (7.4-11.4); MONOCYTES # (AUTO) 0.8 10^3/uL (0.0-1.0); MONOCYTES % (AUTO) 8.1 %; NEUTROPHILS # (AUTO) 6.6 10^3/uL (1.5-6.6); NEUTROPHILS % (AUTO) 67.5 %; PLT - PLATELET COUNT 317 10^3/uL (130-450); RED BLOOD COUNT 4.84 10^6/uL (4.70-6.10); RED CELL DISTRIBUTION WIDTH 14.5 % (12.0-15.0); WHITE BLOOD COUNT 9.7 x10^3/uL (4.8-10.8)
[2020-10-18] MEDS: SODIUM CHLORIDE FLUSH 0.9% 10 ML SYRINGE IVP PRN ×3 (05:51→22:37)
[2020-10-18] MEDS: KETOROLAC 15 MG/ML VIAL IVP PRN ×3 (05:51→19:54)
[2020-10-18 06:02] LABS: CALCIUM 8.9 mg/dL (8.5-10.3); CREATININE 0.6 mg/dL (0.6-1.2); MAGNESIUM 1.7 mg/dL (1.7-2.8)
[2020-10-18] MEDS: INSULIN ASPART 300 UNIT/3 ML PEN SUBQ SCH ×7 (07:41→20:46)
[2020-10-18] MEDS: THIAMINE 100 MG TABLET PO SCH (08:04)
[2020-10-18] MEDS: MAGNESIUM OXIDE 400 MG TABLET PO SCH (08:04)
[2020-10-18] MEDS: LACTOBACILLUS RHAMNOSUS GG CAPSULE PO SCH (08:04)
[2020-10-18] MEDS: MULTIVITAMIN W/MINERALS TABLET PO SCH (08:04)
[2020-10-18] MEDS: ASPIRIN EC 81 MG TABLET PO SCH (08:05)
[2020-10-18] MEDS: DOCUSATE SODIUM 250 MG CAPSULE PO SCH (08:07)
[2020-10-18] MEDS: SENNA 8.6 MG TABLET PO SCH (08:08)
[2020-10-18] MEDS: polyethylene glycoL 3350 17 GM PACKET PO SCH (08:08)
--- NOTE | 2020-10-18 09:00 | PROVIDER PROGRESS NOTE ---
Subjective - Prog Note Date Prog Note Date: 10/18/20 - Subjective Pt reports feeling: Improved Subjective: Pt reports he feels "fine" this morning other than "pain from my toes on up". He can't remember how he slept but denies complaints. Feels like his breathing is "fine", denies shortness of breath. Also denies n/v. Objective - Vital Signs/Intake & Output Reviewed Vital Signs: Yes Vital Signs: Vital Signs x48h Temp Pulse Resp BP Pulse Ox 10/18/20 03:59 36.3 C L 85 20 132/84 H 95 Intake & Output: Intake & Output 10/15/20 10/16/20 10/17/20 10/18/20 23:59 23:59 23:59 23:59 Intake Total 2590 3000 2020 1455 Output Total 1950 5100 4300 750 Balance 640 2100 -2280 705 - Objective General Appearance: positive: No acute distress, Alert Eyes Bilateral: positive: Normal inspection, PERRL, EOMI, Conjunctivae nml, No scleral icterus ENT: positive: ENT inspection nml, No signs of dehydration Neck: positive: Nml inspection, Trachea midline Respiratory: positive: Chest non-tender, No respiratory distress, Rales (diminished, still present bilaterally in the bases), Other Cardiovascular: positive: Regular rate & rhythm, No murmur, No gallop Peripheral Pulses: 1+ Dorsalis pedis (R), 1+ Dorsalis pedis (L) Abdomen: positive: Non-tender, Nml bowel sounds, No distention Skin: positive: Other (bilateral lower legs/feet with dependent rubor. 2cm x 2cm open ulceration on the right plantar heel with red non-granulation tissue (neuropathic foot ulcer)) Extremities: positive: Pedal edema, Other (Lower extremity edema 1+ bilaterally) Neurologic/Psychiatric: positive: Other (Oriented to person, [facility], and year of 2020. Did not know why he was in the hospital or what month it was.) - Lab Results Fish Bones: 10/18/20 05:35 10/18/20 05:35 Other Labs: Lab Results x24hrs 10/18/20 10/18/20 10/18/20 Range/Units 07:26 05:35 05:35 WBC 9.7 (4.8-10.8) x10^3/uL RBC 4.84 (4.70-6.10) 10^6/uL Hgb 13.4 L (14.0-18.0) g/dL Hct 44.5 (42.0-52.0) % MCV 91.9 (80.0-94.0) fL MCH 27.7 (27.0-31.0) pg MCHC 30.1 L (32.0-36.0) g/dL RDW 14.5 (12.0-15.0) % Plt Count 317 (130-450) 10^3/uL MPV 9.5 (7.4-11.4) fL Neut # (Auto) 6.6 (1.5-6.6) 10^3/uL Lymph # (Auto) 1.7 (1.5-3.5) 10^3/uL Carver # (Auto) 0.8 (0.0-1.0) 10^3/uL Eos # (Auto) 0.5 (0.0-0.7) 10^3/uL Baso # (Auto) 0.1 (0.0-0.1) 10^3/uL Absolute Nucleated RBC 0.00 x10^3/uL Nucleated RBC % 0.0 /100WBC Sodium 138 (135-145) mmol/L Potassium 5.0 (3.5-5.0) mmol/L Chloride 89 L (101-111) mmol/L Carbon Dioxide 41 H* (21-32) mmol/L Anion Gap 8.0 (6-13) BUN 26 H (6-20) mg/dL Creatinine 0.6 (0.6-1.2) mg/dL Estimated GFR (MDRD) 132 (>89) Glucose 226 H (70-100) mg/dL POC Whole Bld Glucose 207 H (70 - 100) mg/dL Calcium 8.9 (8.5-10.3) mg/dL Magnesium 1.7 (1.7-2.8) mg/dL 10/17/20 10/17/20 10/17/20 Range/Units 20:21 16:42 11:03 WBC (4.8-10.8) x10^3/uL RBC (4.70-6.10) 10^6/uL Hgb (14.0-18.0) g/dL Hct (42.0-52.0) % MCV (80.0-94.0) fL MCH (27.0-31.0) pg MCHC (32.0-36.0) g/dL RDW (12.0-15.0) % Plt Count (130-450) 10^3/uL MPV (7.4-11.4) fL Neut # (Auto) (1.5-6.6) 10^3/uL Lymph # (Auto) (1.5-3.5) 10^3/uL Carver # (Auto) (0.0-1.0) 10^3/uL Eos # (Auto) (0.0-0.7) 10^3/uL Baso # (Auto) (0.0-0.1) 10^3/uL Absolute Nucleated RBC x10^3/uL Nucleated RBC % /100WBC Sodium (135-145) mmol/L Potassium (3.5-5.0) mmol/L Chloride (101-111) mmol/L Carbon Dioxide (21-32) mmol/L Anion Gap (6-13) BUN (6-20) mg/dL Creatinine (0.6-1.2) mg/dL Estimated GFR (MDRD) (>89) Glucose (70-100) mg/dL POC Whole Bld Glucose 201 H 149 H 93 (70 - 100) mg/dL Calcium (8.5-10.3) mg/dL Magnesium (1.7-2.8) mg/dL 10/17/20 Range/Units 07:21 WBC (4.8-10.8) x10^3/uL RBC (4.70-6.10) 10^6/uL Hgb (14.0-18.0) g/dL Hct (42.0-52.0) % MCV (80.0-94.0) fL MCH (27.0-31.0) pg MCHC (32.0-36.0) g/dL RDW (12.0-15.0) % Plt Count (130-450) 10^3/uL MPV (7.4-11.4) fL Neut # (Auto) (1.5-6.6) 10^3/uL Lymph # (Auto) (1.5-3.5) 10^3/uL Carver # (Auto) (0.0-1.0) 10^3/uL Eos # (Auto) (0.0-0.7) 10^3/uL Baso # (Auto) (0.0-0.1) 10^3/uL Absolute Nucleated RBC x10^3/uL Nucleated RBC % /100WBC Sodium (135-145) mmol/L Potassium (3.5-5.0) mmol/L Chloride (101-111) mmol/L Carbon Dioxide (21-32) mmol/L Anion Gap (6-13) BUN (6-20) mg/dL Creatinine (0.6-1.2) mg/dL Estimated GFR (MDRD) (>89) Glucose (70-100) mg/dL POC Whole Bld Glucose 152 H (70 - 100) mg/dL Calcium (8.5-10.3) mg/dL Magnesium (1.7-2.8) mg/dL ABX Reporting Has patient been on IV antibiotics over the past 48 hours?: No Sepsis Event Note (H) - Evaluation Current Stage of Sepsis: Sepsis Possible source of Sepsis: positive: Pulmonary, Wound - Sepsis Criteria Sepsis Criteria: Recorded Temperature greater than 38.3C or Less than 36C, Recorded Heart Rate greater than 90 bpm, Recorded Respiratory Rate greater than 20 (as above, the hypothermia, HR, and RR could be due to extreme volume depletion) Assessment/Plan - Problem List (1) Acute respiratory failure with hypoxia Impression: Slowly improving, satting 92% on 2L NC. He is requiring oxygen due to acute diastolic heart failure and continues to have some peripheral edema. He had a negative fluid balance of 2.2L yesterday. Appears comfortable but continues to be hypoxic and require oxygen. Overnight he drank 1.5L of fluids so he was placed on a 2L fluid restriction. he is responding well to diuresis but continues to require oxygen. -Continue daily IV Lasix 40mg -Strict I/Os -2L fluid restriction -Low sodium diet -Goal oxygen saturation >88% given hx of COPD (2) Acute congestive heart failure Impression: This is the cause of his respiratory failure. His oxygen requirements have been improving but he continues to require 2L NC, satting at 92% this morning. He remains edematous, likely in part due to drinking large amounts of fluids overnight so he has been placed on a 2L fluid restriction. His fluid balance yesterday was net negative 2.2L but then he drank 1.5L overnight. His BNP was 507 yesterday, improving. Echo revealed a preserved ejection fraction. His daily weights have been trending down, 114kg today from 116.5kg yesterday and 117 10/16. -Lasix transitioned to 40mg po daily starting tomorrow -Strict I/Os -2L Fluid restriction -Low sodium diet -Daily weights Qualifiers: Heart failure type: diastolic Qualified Code(s): I50.31 - Acute diastolic (congestive) heart failure (3) Uncontrolled diabetes mellitus with hyperglycemia Impression: No recent episodes of hypoglycemia. His BG this morning was 226 so his evening dose of Lantus was increased to 16units. 3 units Novolog was continued with meals. He will need insulin on discharge. His A1C on admission was >14%. Qualifiers: Diabetes mellitus type: type 2 Qualified Code(s): E11.65 - Type 2 diabetes mellitus with hyperglycemia (4) Cognitive impairment Impression: Per Dr. Murguia's notes he was encephalopathic on admission, felt to be due to volume depletion and pneumonia. He is currently oriented to self, place and year though this appears to have waxed and waned. He was not clear on why he was admitted and is a poor historian. [place] to have cognitive impairment at baseline. He did not tolerate MRI brain so this has not been obtained. He may be close to baseline at this point, especially given his orientation this morning. Once his respiratory status has resolved he can be discharged to a SNF. (5) Peripheral vascular disease Impression: Duplex of the lower extremities obtained 10/17 due to diminished pedal pulses. Showed mild to moderate diffuse right SFA disease without focal hemodynamically significant stenosis. Left lower extremity runoff significant for suggestive of possible significant SFA stenosis. There is also monophasic low distrance flow the distal runoff vessels suggesting more proximal senosis. There is currently no obvious evidence of ischemia. He was started on aspirin and a statin. No evidence currently of acute ischemia, will contact Vascular Surgery if any s/x occur. He should follow up outpatient with Vascular. (6) Metabolic alkalosis Impression: Bicarb has been rising, suspect contraction alkalosis. Still edematous, had a high oral intake of fluids overnight that may be impairing his respiratory status. Placed on a 2L fluid restriction with his low sodium diet to help with fluid overload. Also has COPD that may be contributing. Given one last dose of IV lasix and transitioned to oral Lasix tomorrow. -Stop IV Lasix after am dose -Lasix 40mg po daily starting tomorrow -Continue to monitor bicarb, recheck in am -Maintain O2 sats>88% (7) Acute kidney injury Impression: Resolved. Creatinine 0.6 today. (8) Community acquired bacterial pneumonia Impression: This was the initial cause of his respiratory failure. He has completed treatment with ceftriaxone and azithromycin. (9) Self-care deficit Impression: He presented with evidence of self-neglect given multiple areas of skin breakdown. There have been multiple APS reports in the past. Appreciate social work input regarding disposition.
[2020-10-18] MEDS: NYSTATIN POWDER 15 GM TOP SCH ×2 (09:02→19:54)
[2020-10-18] MEDS: NICOTINE 14 MG PATCH TOP SCH (09:03)
[2020-10-18] MEDS: ENOXAPARIN 40 MG/0.4 ML SYRINGE SUBQ SCH (09:03)
[2020-10-18] MEDS: FUROSEMIDE 40 MG/4 ML VIAL IVP SCH (09:03)
[2020-10-18] MEDS: SODIUM CHLORIDE FLUSH 0.9% 10 ML SYRINGE IVP SCH ×2 (09:47→23:57)
[2020-10-18] MEDS ORDERED: SODIUM CHLORIDE FLUSH 0.9% 10 ML SYRINGE IVP SCH (17:00)
[2020-10-18] MEDS: ATORVASTATIN 40 MG TABLET PO SCH (19:54)
[2020-10-18] MEDS: ZINC OXIDE 20% OINT 30 GM TUBE TOP PRN (20:00)
[2020-10-18] MEDS ORDERED: INSULIN GLARGINE 300 UNIT/3 ML PEN SUBQ SCH (21:00)
[2020-10-18] MEDS ORDERED: FUROSEMIDE 40 MG/4 ML VIAL IVP STA (22:26)
[2020-10-19] MEDS: SODIUM CHLORIDE FLUSH 0.9% 10 ML SYRINGE IVP SCH ×2 (02:14→08:34)
[2020-10-19] MEDS: KETOROLAC 15 MG/ML VIAL IVP PRN ×3 (02:20→14:44)
[2020-10-19] MEDS: SODIUM CHLORIDE FLUSH 0.9% 10 ML SYRINGE IVP PRN ×2 (02:20→08:34)
[2020-10-19 06:09] LABS: BASOPHILS # (AUTO) 0.1 10^3/uL (0.0-0.1); BASOPHILS % (AUTO) 0.7 %; EOSINOPHILS # (AUTO) 0.5 10^3/uL (0.0-0.7); EOSINOPHILS % (AUTO) 5.2 %; HCT - HEMATOCRIT 47.2 % (42.0-52.0); HGB - HEMOGLOBIN 14.3 g/dL (14.0-18.0); LYMPHOCYTES # (AUTO) 1.6 10^3/uL (1.5-3.5); LYMPHOCYTES % (AUTO) 15.6 %; MEAN CORPUSCULAR HEMOGLOBIN 27.8 pg (27.0-31.0); MEAN CORPUSCULAR HGB CONC 30.3 g/dL (32.0-36.0); MEAN CORPUSCULAR VOLUME 91.8 fL (80.0-94.0); MEAN PLATELET VOLUME 9.8 fL (7.4-11.4); MONOCYTES # (AUTO) 0.9 10^3/uL (0.0-1.0); MONOCYTES % (AUTO) 8.7 %; NEUTROPHILS # (AUTO) 6.9 10^3/uL (1.5-6.6); NEUTROPHILS % (AUTO) 68.7 %; PLT - PLATELET COUNT 310 10^3/uL (130-450); RED BLOOD COUNT 5.14 10^6/uL (4.70-6.10); RED CELL DISTRIBUTION WIDTH 14.3 % (12.0-15.0)
[2020-10-19 06:17] LABS: CALCIUM 9.1 mg/dL (8.5-10.3); CREATININE 0.7 mg/dL (0.6-1.2); MAGNESIUM 1.7 mg/dL (1.7-2.8); POTASSIUM 5.2 mmol/L (3.5-5.0)
[2020-10-19] MEDS: ACETAMINOPHEN 500 MG TABLET PO PRN ×2 (07:04→13:53)
[2020-10-19] MEDS: INSULIN ASPART 300 UNIT/3 ML PEN SUBQ SCH ×7 (08:31→20:54)
[2020-10-19] MEDS: ENOXAPARIN 40 MG/0.4 ML SYRINGE SUBQ SCH (08:32)
[2020-10-19] MEDS: NICOTINE 14 MG PATCH TOP SCH (08:33)
[2020-10-19] MEDS: MULTIVITAMIN W/MINERALS TABLET PO SCH (08:35)
[2020-10-19] MEDS: ASPIRIN EC 81 MG TABLET PO SCH (08:35)
[2020-10-19] MEDS: MAGNESIUM OXIDE 400 MG TABLET PO SCH (08:36)
[2020-10-19] MEDS: FUROSEMIDE 40 MG TABLET PO SCH (08:36)
[2020-10-19] MEDS: DOCUSATE SODIUM 250 MG CAPSULE PO SCH (08:36)
[2020-10-19] MEDS: THIAMINE 100 MG TABLET PO SCH (08:36)
[2020-10-19] MEDS: LACTOBACILLUS RHAMNOSUS GG CAPSULE PO SCH (08:36)
[2020-10-19] MEDS: SENNA 8.6 MG TABLET PO SCH (08:42)
[2020-10-19] MEDS: polyethylene glycoL 3350 17 GM PACKET PO SCH (08:42)
[2020-10-19] MEDS: NYSTATIN POWDER 15 GM TOP SCH ×2 (08:46→20:46)
--- NOTE | 2020-10-19 08:54 | PROVIDER PROGRESS NOTE ---
Subjective - Prog Note Date Prog Note Date: 10/19/20 Prog Note Time: 08:52 - Subjective Pt reports feeling: No change Subjective: Pt feels like "the skin on my feet is falling off." Can't remember how he slept, found sitting up in chair with legs elevated and eating breakfast. Forgetful throughout the day, calling for help but can't remember why. Denies n/v. Feels a little short of breath this morning, denies other complaints. Objective - Vital Signs/Intake & Output Reviewed Vital Signs: Yes Vital Signs: Vital Signs x48h Temp Pulse Resp BP Pulse Ox 10/19/20 06:00 36.4 C L 73 24 131/76 H 96 Intake & Output: Intake & Output 10/16/20 10/17/20 10/18/20 10/19/20 23:59 23:59 23:59 23:59 Intake Total 3000 2020 3045 760 Output Total 5100 4300 2875 1700 Balance -2100 -2280 170 -940 - Objective General Appearance: positive: Alert, Other (Sitting up in chair with legs elevated, alert in no acute distress. Slightly disheveled appearing this morning.) Eyes Bilateral: positive: Normal inspection, PERRL, No lid inflammation, Conjunctivae nml, No scleral icterus ENT: positive: ENT inspection nml, Pharynx nml, No signs of dehydration Neck: positive: Nml inspection Respiratory: positive: Chest non-tender, No respiratory distress, Other (diminished in the bases). negative: Rales, Rhonchi Cardiovascular: positive: Regular rate & rhythm, No murmur, No gallop Peripheral Pulses: 1+ Dorsalis pedis (R), 1+ Dorsalis pedis (L) Abdomen: positive: Non-tender, No organomegaly, Nml bowel sounds, No distention Skin: positive: Other (Left heel ulcer covered with bandage. Buttocks breakdown not visualized today.) Extremities: positive: Pedal edema (2+ pedal edema, 1+ lower extremity edema) Neurologic/Psychiatric: positive: Oriented x3 (Oriented to person, place and year but does not understand why he is in the hospital), Other (diminished sensation in the feet, tingling noted) - Lab Results Fish Bones: 10/19/20 05:59 10/19/20 13:05 Other Labs: Lab Results x24hrs 10/19/20 10/19/20 10/19/20 Range/Units 07:30 05:59 05:59 WBC 10.0 (4.8-10.8) x10^3/uL RBC 5.14 (4.70-6.10) 10^6/uL Hgb 14.3 (14.0-18.0) g/dL Hct 47.2 (42.0-52.0) % MCV 91.8 (80.0-94.0) fL MCH 27.8 (27.0-31.0) pg MCHC 30.3 L (32.0-36.0) g/dL RDW 14.3 (12.0-15.0) % Plt Count 310 (130-450) 10^3/uL MPV 9.8 (7.4-11.4) fL Neut # (Auto) 6.9 H (1.5-6.6) 10^3/uL Lymph # (Auto) 1.6 (1.5-3.5) 10^3/uL Rhea # (Auto) 0.9 (0.0-1.0) 10^3/uL Eos # (Auto) 0.5 (0.0-0.7) 10^3/uL Baso # (Auto) 0.1 (0.0-0.1) 10^3/uL Absolute Nucleated RBC 0.00 x10^3/uL Nucleated RBC % 0.0 /100WBC Sodium 137 (135-145) mmol/L Potassium 5.2 H (3.5-5.0) mmol/L Chloride 88 L (101-111) mmol/L Carbon Dioxide 40 H* (21-32) mmol/L Anion Gap 9.0 (6-13) BUN 28 H (6-20) mg/dL Creatinine 0.7 (0.6-1.2) mg/dL Estimated GFR (MDRD) 111 (>89) Glucose 192 H (70-100) mg/dL POC Whole Bld Glucose 272 H (70 - 100) mg/dL Calcium 9.1 (8.5-10.3) mg/dL Magnesium 1.7 (1.7-2.8) mg/dL 10/18/20 10/18/20 10/18/20 Range/Units 20:33 16:33 11:38 WBC (4.8-10.8) x10^3/uL RBC (4.70-6.10) 10^6/uL Hgb (14.0-18.0) g/dL Hct (42.0-52.0) % MCV (80.0-94.0) fL MCH (27.0-31.0) pg MCHC (32.0-36.0) g/dL RDW (12.0-15.0) % Plt Count (130-450) 10^3/uL MPV (7.4-11.4) fL Neut # (Auto) (1.5-6.6) 10^3/uL Lymph # (Auto) (1.5-3.5) 10^3/uL Rhea # (Auto) (0.0-1.0) 10^3/uL Eos # (Auto) (0.0-0.7) 10^3/uL Baso # (Auto) (0.0-0.1) 10^3/uL Absolute Nucleated RBC x10^3/uL Nucleated RBC % /100WBC Sodium (135-145) mmol/L Potassium (3.5-5.0) mmol/L Chloride (101-111) mmol/L Carbon Dioxide (21-32) mmol/L Anion Gap (6-13) BUN (6-20) mg/dL Creatinine (0.6-1.2) mg/dL Estimated GFR (MDRD) (>89) Glucose (70-100) mg/dL POC Whole Bld Glucose 190 H 193 H 225 H (70 - 100) mg/dL Calcium (8.5-10.3) mg/dL Magnesium (1.7-2.8) mg/dL ABX Reporting Has patient been on IV antibiotics over the past 48 hours?: No Sepsis Event Note (H) - Evaluation Current Stage of Sepsis: Resolved Assessment/Plan - Problem List (1) Acute respiratory failure with hypoxia Impression: Slowly improving, satting 96% on 2L NC. He is requiring oxygen due to acute diastolic heart failure and continues to have some peripheral edema. He was net positive 170mL yesterday despite a fluid restriction. Appears comfortable but continues to be hypoxic and require oxygen. IV Lasix was discontinued yesterday and transitioned to 40mg po starting today, may need to switch to 80mg po daily if not diuresing appropriately. Nursing attempted to waean his O2 this morning but he felt dyspnic and reports he has home O2 so we have stopped trying to wean him down. -Lasix 40mg po daily, may need extra dose this afternoon but will monitor -Strict I/Os -2L fluid restriction -Low sodium diet -Goal oxygen saturation >88% given hx of COPD (2) Acute congestive heart failure Impression: This is the cause of his respiratory failure. His oxygen requirements have been improving but he continues to require 2L NC, satting at 92% this morning. This morning he states that he uses oxygen at home. He remains edematous despite elevating his legs and his fluid balance yesterday was positive 170mL despite his fluid restriction. His last BNP was 507 and Echo revealed a preserved ejection fraction. His daily weights have been trending down. -Lasix transitioned to 40mg po daily, first dose today -Strict I/Os -2L Fluid restriction -Low sodium diet -Daily weights Qualifiers: Heart failure type: diastolic Qualified Code(s): I50.31 - Acute diastolic (congestive) heart failure (3) Uncontrolled diabetes mellitus with hyperglycemia Impression: No recent episodes of hypoglycemia. His BG this morning was 272 and he was in the 190s yesterday evening. The Lantus was increased to 16 units yesterday, I have increased to 17 units at 2100 today and increased his scheduled insulin with meals to 4 units in addition to the sliding scale. He will need insulin on discharge. His A1C on admission was >14%. Qualifiers: Diabetes mellitus type: type 2 Qualified Code(s): E11.65 - Type 2 diabetes mellitus with hyperglycemia (4) Cognitive impairment Impression: Per Dr. Murguia's notes he was encephalopathic on admission, felt to be due to volume depletion and pneumonia. He is currently oriented to self, place and year though this appears to have waxed and waned. He was not clear again today on why he was admitted and is a poor historian. [place] to have cognitive impairment at baseline. He did not tolerate MRI brain so this has not been obtained. He may be close to baseline at this point, especially given his orientation this morning. (5) Peripheral vascular disease Impression: Duplex of the lower extremities obtained 10/17 due to diminished pedal pulses. Showed mild to moderate diffuse right SFA disease without focal hemodynamically significant stenosis. Left lower extremity runoff significant for suggestive of possible significant SFA stenosis. There is also monophasic low distrance flow the distal runoff vessels suggesting more proximal senosis. There is currently no obvious evidence of ischemia. He was started on aspirin and a statin. No evidence currently of acute ischemia, will contact Vascular Surgery if any s/x occur. He should follow up outpatient with Vascular. (6) Metabolic alkalosis Impression: CO2 remains elevated but came down 1 point overnight, suspect contraction alkalosis. Still edematous, slightly volume up overnight. Continued on a 2L fluid restriction with his low sodium diet to help with fluid overload. Also has COPD that may be contributing. Attempted to wean his oxygen this morning but he did not tolerate and reported that he uses oxygen at home, so will keep on 1- 2L NC as needed for his dyspnea to keep sats>88%. -Lasix 40mg po daily -Continue to monitor bicarb, recheck in am -Maintain O2 sats>88% (7) Hyperkalemia Impression: K mildly elevated at 5.2 today, likely nutrition related. Will plan for a re- draw this afternoon and continue to monitor. (8) Acute kidney injury Impression: Resolved. Creatinine increased at beginning of stay, has been normal and remains at 0.7 today. (9) Community acquired bacterial pneumonia Impression: Resolved. He has completed treatment with antibiotics. (10) Self-care deficit Impression: He presented with evidence of self-neglect given multiple areas of skin breakdown and elevated BGs (report he does not check his BGs at home). There have been multiple APS reports made in the past. Appreciate social work input regarding disposition. Plan for discharge to SNF once accepting facility is found and medically ready (likely 1-2 days if possible).
[2020-10-19 13:39] LABS: ALBUMIN 2.7 g/dL (3.2-5.5); ALBUMIN/GLOBULIN RATIO 0.9 (1.0-2.2); BILIRUBIN,TOTAL 0.6 mg/dL (0.2-1.0); CALCIUM 9.3 mg/dL (8.5-10.3); CREATININE 0.7 mg/dL (0.6-1.2); POTASSIUM 5.1 mmol/L (3.5-5.0); TOTAL PROTEIN 5.8 g/dL (6.7-8.2)
[2020-10-19] MEDS: ATORVASTATIN 40 MG TABLET PO SCH (20:43)
[2020-10-19] MEDS: INSULIN GLARGINE 300 UNIT/3 ML PEN SUBQ SCH (20:52)
[2020-10-20] MEDS: ACETAMINOPHEN 500 MG TABLET PO PRN ×4 (00:38→17:06)
[2020-10-20] MEDS: SODIUM CHLORIDE FLUSH 0.9% 10 ML SYRINGE IVP SCH (00:39)
[2020-10-20] MEDS: BENZOCAINE/MENTHOL LOZENGE MM PRN ×4 (05:06→21:17)
[2020-10-20 05:18] LABS: BASOPHILS # (AUTO) 0.1 10^3/uL (0.0-0.1); BASOPHILS % (AUTO) 0.7 %; EOSINOPHILS # (AUTO) 0.5 10^3/uL (0.0-0.7); EOSINOPHILS % (AUTO) 4.5 %; HCT - HEMATOCRIT 46.3 % (42.0-52.0); HGB - HEMOGLOBIN 13.9 g/dL (14.0-18.0); LYMPHOCYTES # (AUTO) 1.6 10^3/uL (1.5-3.5); MEAN CORPUSCULAR VOLUME 93.3 fL (80.0-94.0); MEAN PLATELET VOLUME 10.3 fL (7.4-11.4); MONOCYTES # (AUTO) 0.9 10^3/uL (0.0-1.0); MONOCYTES % (AUTO) 8.4 %; NEUTROPHILS # (AUTO) 7.3 10^3/uL (1.5-6.6); NEUTROPHILS % (AUTO) 70.5 %; PLT - PLATELET COUNT 283 10^3/uL (130-450); RED BLOOD COUNT 4.96 10^6/uL (4.70-6.10); RED CELL DISTRIBUTION WIDTH 14.3 % (12.0-15.0); WHITE BLOOD COUNT 10.3 x10^3/uL (4.8-10.8)
[2020-10-20 05:29] LABS: ALBUMIN 2.6 g/dL (3.2-5.5); ALBUMIN/GLOBULIN RATIO 0.8 (1.0-2.2); BILIRUBIN,TOTAL 0.5 mg/dL (0.2-1.0); CALCIUM 9.2 mg/dL (8.5-10.3); CREATININE 0.7 mg/dL (0.6-1.2); POTASSIUM 5.1 mmol/L (3.5-5.0); TOTAL PROTEIN 5.8 g/dL (6.7-8.2)
[2020-10-20] MEDS: INSULIN ASPART 300 UNIT/3 ML PEN SUBQ SCH ×7 (08:19→20:36)
[2020-10-20] MEDS: MAGNESIUM OXIDE 400 MG TABLET PO SCH (08:20)
[2020-10-20] MEDS: ENOXAPARIN 40 MG/0.4 ML SYRINGE SUBQ SCH (08:20)
[2020-10-20] MEDS: ASPIRIN EC 81 MG TABLET PO SCH (08:20)
[2020-10-20] MEDS: THIAMINE 100 MG TABLET PO SCH (08:21)
[2020-10-20] MEDS: FUROSEMIDE 40 MG TABLET PO SCH (08:21)
[2020-10-20] MEDS: MULTIVITAMIN W/MINERALS TABLET PO SCH (08:21)
[2020-10-20] MEDS: LACTOBACILLUS RHAMNOSUS GG CAPSULE PO SCH (08:21)
[2020-10-20] MEDS: DOCUSATE SODIUM 250 MG CAPSULE PO SCH (08:21)
[2020-10-20] MEDS: NICOTINE 14 MG PATCH TOP SCH (08:22)
[2020-10-20] MEDS: polyethylene glycoL 3350 17 GM PACKET PO SCH (08:22)
[2020-10-20] MEDS: SENNA 8.6 MG TABLET PO SCH (08:22)
--- NOTE | 2020-10-20 10:40 | PROVIDER PROGRESS NOTE ---
Subjective - Prog Note Date Prog Note Date: 10/20/20 - Subjective Pt reports feeling: No change Subjective: Pt reports he feels "fine" this morning but "a little confused". He is oriented to self, place and year but continues not to understand why he is here. Other than feeling thirsty and with generalized pain that is somewhat relieved with repositioning he denies SOB, cough, n/v. No other complaints. Objective - Vital Signs/Intake & Output Reviewed Vital Signs: Yes Vital Signs: Vital Signs x48h Temp Pulse Pulse Resp BP BP Pulse Ox 10/20/20 08:35 55 L 18 10/20/20 08:28 36.6 C 88 22 145/67 H 95 10/20/20 04:00 36.6 C 86 28 H 143/77 H 97 Intake & Output: Intake & Output 10/17/20 10/18/20 10/19/20 10/20/20 23:59 23:59 23:59 23:59 Intake Total 2019 3045 1650 480 Output Total 4300 2875 4100 1700 Balance -2280 170 -2450 -1220 - Objective General Appearance: positive: No acute distress, Alert, Other (Lying in bed in no acute distress. Occasionally yelling for help but when asked how we can help him he does not remember.) Eyes Bilateral: positive: Normal inspection, PERRL, Conjunctivae nml, No scleral icterus ENT: positive: ENT inspection nml, No signs of dehydration Neck: positive: Nml inspection Respiratory: positive: Chest non-tender, No respiratory distress, Other (diminished in bilateral bases, occasionally crackles and rhonchi in the bases; non-productive cough) Cardiovascular: positive: Regular rate & rhythm, No murmur, No gallop Peripheral Pulses: 1+ Dorsalis pedis (R), 1+ Dorsalis pedis (L) Abdomen: positive: Non-tender, No organomegaly, Nml bowel sounds, No distention Skin: positive: Other (Left heel ulcer covered with bandage. Buttocks skin breakdown not visualized as Pt did not want to turn for inspection. No wounds visualized while he was supine) Extremities: positive: Nml appearance, No pedal edema, Other (dependent rubor noted in bilateral feet/lower extremities along with elevational pallor) Neurologic/Psychiatric: positive: Oriented x3 (oriented to person, place and year. Not oriented to reason for admission), Mood/affect nml, Other (diminished sensation/neuropathy to feet) - Lab Results Fish Bones: 10/20/20 04:50 10/20/20 04:50 Other Labs: Lab Results x24hrs 10/20/20 10/20/20 10/20/20 Range/Units 07:35 04:50 04:50 WBC (4.8-10.8) x10^3/uL RBC (4.70-6.10) 10^6/uL Hgb (14.0-18.0) g/dL Hct (42.0-52.0) % MCV (80.0-94.0) fL MCH (27.0-31.0) pg MCHC (32.0-36.0) g/dL RDW (12.0-15.0) % Plt Count (130-450) 10^3/uL MPV (7.4-11.4) fL Neut # (Auto) (1.5-6.6) 10^3/uL Lymph # (Auto) (1.5-3.5) 10^3/uL Ponce # (Auto) (0.0-1.0) 10^3/uL Eos # (Auto) (0.0-0.7) 10^3/uL Baso # (Auto) (0.0-0.1) 10^3/uL Absolute Nucleated RBC x10^3/uL Nucleated RBC % /100WBC Sodium 142 (135-145) mmol/L Potassium 5.1 H (3.5-5.0) mmol/L Chloride 90 L (101-111) mmol/L Carbon Dioxide 43 H* (21-32) mmol/L Anion Gap 9.0 (6-13) BUN 28 H (6-20) mg/dL Creatinine 0.7 (0.6-1.2) mg/dL Estimated GFR (MDRD) 111 (>89) Glucose 152 H (70-100) mg/dL POC Whole Bld Glucose 144 H (70 - 100) mg/dL Calcium 9.2 (8.5-10.3) mg/dL Total Bilirubin 0.5 (0.2-1.0) mg/dL AST 26 (10-42) IU/L ALT 29 (10-60) IU/L Alkaline Phosphatase 207 H (42-121) IU/L B-Natriuretic Peptide 260 H (5-100) pg/mL Total Protein 5.8 L (6.7-8.2) g/dL Albumin 2.6 L (3.2-5.5) g/dL Globulin 3.2 (2.1-4.2) g/dL Albumin/Globulin Ratio 0.8 L (1.0-2.2) 10/20/20 10/19/20 10/19/20 Range/Units 04:50 20:53 16:46 WBC 10.3 (4.8-10.8) x10^3/uL RBC 4.96 (4.70-6.10) 10^6/uL Hgb 13.9 L (14.0-18.0) g/dL Hct 46.3 (42.0-52.0) % MCV 93.3 (80.0-94.0) fL MCH 28.0 (27.0-31.0) pg MCHC 30.0 L (32.0-36.0) g/dL RDW 14.3 (12.0-15.0) % Plt Count 283 (130-450) 10^3/uL MPV 10.3 (7.4-11.4) fL Neut # (Auto) 7.3 H (1.5-6.6) 10^3/uL Lymph # (Auto) 1.6 (1.5-3.5) 10^3/uL Ponce # (Auto) 0.9 (0.0-1.0) 10^3/uL Eos # (Auto) 0.5 (0.0-0.7) 10^3/uL Baso # (Auto) 0.1 (0.0-0.1) 10^3/uL Absolute Nucleated RBC 0.00 x10^3/uL Nucleated RBC % 0.0 /100WBC Sodium (135-145) mmol/L Potassium (3.5-5.0) mmol/L Chloride (101-111) mmol/L Carbon Dioxide (21-32) mmol/L Anion Gap (6-13) BUN (6-20) mg/dL Creatinine (0.6-1.2) mg/dL Estimated GFR (MDRD) (>89) Glucose (70-100) mg/dL POC Whole Bld Glucose 187 H 129 H (70 - 100) mg/dL Calcium (8.5-10.3) mg/dL Total Bilirubin (0.2-1.0) mg/dL AST (10-42) IU/L ALT (10-60) IU/L Alkaline Phosphatase (42-121) IU/L B-Natriuretic Peptide (5-100) pg/mL Total Protein (6.7-8.2) g/dL Albumin (3.2-5.5) g/dL Globulin (2.1-4.2) g/dL Albumin/Globulin Ratio (1.0-2.2) 10/19/20 10/19/20 Range/Units 13:05 11:14 WBC (4.8-10.8) x10^3/uL RBC (4.70-6.10) 10^6/uL Hgb (14.0-18.0) g/dL Hct (42.0-52.0) % MCV (80.0-94.0) fL MCH (27.0-31.0) pg MCHC (32.0-36.0) g/dL RDW (12.0-15.0) % Plt Count (130-450) 10^3/uL MPV (7.4-11.4) fL Neut # (Auto) (1.5-6.6) 10^3/uL Lymph # (Auto) (1.5-3.5) 10^3/uL Ponce # (Auto) (0.0-1.0) 10^3/uL Eos # (Auto) (0.0-0.7) 10^3/uL Baso # (Auto) (0.0-0.1) 10^3/uL Absolute Nucleated RBC x10^3/uL Nucleated RBC % /100WBC Sodium 140 (135-145) mmol/L Potassium 5.1 H (3.5-5.0) mmol/L Chloride 89 L (101-111) mmol/L Carbon Dioxide 41 H* (21-32) mmol/L Anion Gap 10.0 (6-13) BUN 29 H (6-20) mg/dL Creatinine 0.7 (0.6-1.2) mg/dL Estimated GFR (MDRD) 111 (>89) Glucose 123 H (70-100) mg/dL POC Whole Bld Glucose 170 H (70 - 100) mg/dL Calcium 9.3 (8.5-10.3) mg/dL Total Bilirubin 0.6 (0.2-1.0) mg/dL AST 26 (10-42) IU/L ALT 30 (10-60) IU/L Alkaline Phosphatase 229 H (42-121) IU/L B-Natriuretic Peptide (5-100) pg/mL Total Protein 5.8 L (6.7-8.2) g/dL Albumin 2.7 L (3.2-5.5) g/dL Globulin 3.1 (2.1-4.2) g/dL Albumin/Globulin Ratio 0.9 L (1.0-2.2) Sepsis Event Note (H) - Evaluation Current Stage of Sepsis: Resolved Possible source of Sepsis: positive: Pulmonary, Wound - Sepsis Criteria Sepsis Criteria: Recorded Temperature greater than 38.3C or Less than 36C, Recorded Heart Rate greater than 90 bpm, Recorded Respiratory Rate greater than 20 (as above, the hypothermia, HR, and RR could be due to extreme volume depletion) Assessment/Plan - Problem List (1) Acute respiratory failure with hypoxia Impression: Slowly improving, satting 95-97% on 2L NC. He is requiring oxygen due to acute diastolic heart failure and likely also from his COPD as he reports using home O2. Denies SOB today, has an occasional dry cough. Appears comfortable. Tolerating oral lasix, was net negative 2.4L yesterday. -Lasix 40mg po daily -Strict I/Os -2.5L fluid restriction -Low sodium diet -Goal oxygen saturation >88% given hx of COPD (2) Acute congestive heart failure Impression: This is the cause of his respiratory failure. His oxygen requirements have been improving but he continues to require 2L NC, satting at 95% this morning. He states that he uses oxygen at home. I assessed him before he got out of bed this morning and he did not have any lower extremity or pedal edema after lying in bed all night. BNP today continues to trend down and is 260 and Echo revealed a preserved ejection fraction. His daily weights have been trending down, 112kg today. Given lack of edema he may be close to or at his dry weight. Fluid restriction increased to 2.5L /day given his feelings of thirst and no edema. -Lasix 40mg po daily -Strict I/Os -2.5L Fluid restriction-consider removing this afternoon -Low sodium diet -Daily weights Qualifiers: Heart failure type: diastolic Qualified Code(s): I50.31 - Acute diastolic (congestive) heart failure (3) Uncontrolled diabetes mellitus with hyperglycemia Impression: No recent episodes of hypoglycemia. His BGs over the past 24 hours have ranged 129-187. No changes made to his insulin regimen today. He will need insulin on discharge. His A1C on admission was >14%. Lantus increased to 16 units 10/18 and 17 units 10/19 Mealtime correction increased to 4 units with meals in addition to sliding scale 10/19 Qualifiers: Diabetes mellitus type: type 2 Qualified Code(s): E11.65 - Type 2 diabetes mellitus with hyperglycemia (4) Cognitive impairment Impression: He is currently oriented to self, place and year though this appears to have waxed and waned. He was not clear again today on why he was admitted and is a poor historian. [place] to have cognitive impairment at baseline. He did not tolerate MRI brain so this has not been obtained. He may be close to baseline at this point, especially given his orientation has been the same for me x3 days. (5) Peripheral vascular disease Impression: Duplex of the lower extremities obtained 10/17 due to diminished pedal pulses. Showed mild to moderate diffuse right SFA disease without focal hemodynamically significant stenosis. Left lower extremity runoff significant for suggestive of possible significant SFA stenosis. There is also monophasic low distrance flow the distal runoff vessels suggesting more proximal senosis. There is currently no obvious evidence of ischemia. He was started on aspirin and a statin. No evidence currently of acute ischemia, will contact Vascular Surgery if any s/x occur. He should follow up outpatient with Vascular. (6) Metabolic alkalosis Impression: CO2 remains elevated, has been in the low 40s for the past few days. I suspect this is due to a combination of retaining from his COPD as well as the aggress luis diuresis he has been getting. He is asymptomatic and denies dyspnea today. Satting appropriately on 2L NC. Could consider an ABG to check his pH status but will hold off on that given he is not altered or symptomatic. No edema noted this morning, net negative 2.4L yesterday. Continued on a 2.5L fluid restriction with his low sodium diet (increased given feelings of thirst and decreasing weight, likely near his dry weight). Supplemental O2 as needed to keep sats>88%. -Lasix 40mg po daily -Daily CMP -Maintain O2 sats>88% (7) Hyperkalemia Impression: K has been 5.1 and 5.2 over the past few days, will continue to monitor. Likely nutrition related. Has not had any chest pain, palpitations or irregular rates per nursing. Will continue to monitor and treat if it gets much higher. -Daily CMP (8) Acute kidney injury Impression: Resolved. Creatinine stable at 0.7, BUN trending down and likely elevated due to heart failure rather than SAVANNAH. (9) Community acquired bacterial pneumonia Impression: Resolved. He has completed treatment with antibiotics. (10) Self-care deficit Impression: He presented with evidence of self-neglect given multiple areas of skin breakdown and elevated BGs (report he does not check his BGs at home). There have been multiple APS reports made in the past. Appreciate social work input r egarding disposition. Plan for discharge to SNF once accepting facility is found and medically ready (likely tomorrow if possible).
[2020-10-20] MEDS: NYSTATIN POWDER 15 GM TOP SCH ×2 (12:10→20:35)
[2020-10-20] MEDS: ZINC OXIDE 20% OINT 30 GM TUBE TOP PRN (12:28)
[2020-10-20] MEDS: IPRATROPIUM/ALBUTEROL 3 ML NEB INH PRN (13:46)
[2020-10-20] MEDS: OXYMETAZOLINE HCL 100 SPRAYS BOTTLE NAS PRN (14:05)
[2020-10-20] MEDS: ATORVASTATIN 40 MG TABLET PO SCH (20:35)
[2020-10-20] MEDS: INSULIN GLARGINE 300 UNIT/3 ML PEN SUBQ SCH (20:36)
[2020-10-21] MEDS: SODIUM CHLORIDE FLUSH 0.9% 10 ML SYRINGE IVP SCH ×3 (00:15→17:32)
[2020-10-21] MEDS: ACETAMINOPHEN 500 MG TABLET PO PRN ×3 (01:10→11:03)
[2020-10-21] MEDS: BENZOCAINE/MENTHOL LOZENGE MM PRN ×6 (01:10→19:57)
[2020-10-21] MEDS: IPRATROPIUM/ALBUTEROL 3 ML NEB INH PRN (02:51)
[2020-10-21 06:03] LABS: BASOPHILS # (AUTO) 0.1 10^3/uL (0.0-0.1); BASOPHILS % (AUTO) 0.7 %; EOSINOPHILS # (AUTO) 0.3 10^3/uL (0.0-0.7); EOSINOPHILS % (AUTO) 2.5 %; HCT - HEMATOCRIT 43.2 % (42.0-52.0); HGB - HEMOGLOBIN 13.1 g/dL (14.0-18.0); LYMPHOCYTES # (AUTO) 1.8 10^3/uL (1.5-3.5); LYMPHOCYTES % (AUTO) 15.5 %; MEAN CORPUSCULAR HEMOGLOBIN 27.9 pg (27.0-31.0); MEAN CORPUSCULAR HGB CONC 30.3 g/dL (32.0-36.0); MEAN CORPUSCULAR VOLUME 92.1 fL (80.0-94.0); MEAN PLATELET VOLUME 9.8 fL (7.4-11.4); MONOCYTES # (AUTO) 0.9 10^3/uL (0.0-1.0); MONOCYTES % (AUTO) 7.1 %; NEUTROPHILS # (AUTO) 8.8 10^3/uL (1.5-6.6); NEUTROPHILS % (AUTO) 73.7 %; PLT - PLATELET COUNT 310 10^3/uL (130-450); RED BLOOD COUNT 4.69 10^6/uL (4.70-6.10); RED CELL DISTRIBUTION WIDTH 14.3 % (12.0-15.0); WHITE BLOOD COUNT 11.9 x10^3/uL (4.8-10.8)
[2020-10-21 06:17] LABS: ALBUMIN 2.6 g/dL (3.2-5.5); ALBUMIN/GLOBULIN RATIO 0.9 (1.0-2.2); BILIRUBIN,TOTAL 0.6 mg/dL (0.2-1.0); CALCIUM 9.3 mg/dL (8.5-10.3); CREATININE 0.8 mg/dL (0.6-1.2); POTASSIUM 5.3 mmol/L (3.5-5.0); TOTAL PROTEIN 5.5 g/dL (6.7-8.2)
[2020-10-21] MEDS: NICOTINE 14 MG PATCH TOP SCH (07:51)
[2020-10-21] MEDS: INSULIN ASPART 300 UNIT/3 ML PEN SUBQ SCH ×7 (07:52→20:56)
[2020-10-21] MEDS: DOCUSATE SODIUM 250 MG CAPSULE PO SCH (07:53)
[2020-10-21] MEDS: THIAMINE 100 MG TABLET PO SCH (07:53)
[2020-10-21] MEDS: FUROSEMIDE 40 MG TABLET PO SCH (07:54)
[2020-10-21] MEDS: MULTIVITAMIN W/MINERALS TABLET PO SCH (07:54)
[2020-10-21] MEDS: MAGNESIUM OXIDE 400 MG TABLET PO SCH (07:54)
[2020-10-21] MEDS: ASPIRIN EC 81 MG TABLET PO SCH (07:54)
[2020-10-21] MEDS: LACTOBACILLUS RHAMNOSUS GG CAPSULE PO SCH (07:54)
[2020-10-21] MEDS: ENOXAPARIN 40 MG/0.4 ML SYRINGE SUBQ SCH (07:55)
[2020-10-21] MEDS: NYSTATIN POWDER 15 GM TOP SCH ×2 (07:55→20:58)
[2020-10-21] MEDS: SENNA 8.6 MG TABLET PO SCH (08:02)
[2020-10-21] MEDS: polyethylene glycoL 3350 17 GM PACKET PO SCH (08:02)
--- NOTE | 2020-10-21 09:29 | PROVIDER PROGRESS NOTE ---
Subjective - Prog Note Date Prog Note Date: 10/21/20 Prog Note Time: 11:00 - Subjective Pt reports feeling: No change (Doesnt recall me (I wouldnt expect it) As noted by [employer] student Holder, he confirms he is on 02 at home and names company) Current Medications - Current Medications Current Medications: Active Medications Generic Name Dose Route Start Last Admin Trade Name Piter PRN Reason Stop Dose Admin Acetaminophen 500 mg 10/12/20 17:08 10/21/20 06:35 Acetaminophen 500 Mg Tablet PO 500 mg Q4HR PRN Administration Pain or Fever > 38C (100.4F) Albuterol/Ipratropium 3 ml 10/11/20 19:29 10/21/20 02:51 Ipratropium/Albuterol 3 Ml Neb INH 3 ml RTQID PRN Administration Shortness of Air/Wheezing Aspirin 81 mg 10/18/20 09:00 10/21/20 07:54 Aspirin Ec 81 Mg Tablet PO 81 mg DAILY RODOLFO Administration Atorvastatin Calcium 40 mg 10/17/20 21:00 10/20/20 20:35 Atorvastatin 40 Mg Tablet PO 40 mg QPM RODOLFO Administration Calcium Carbonate/Glycine 500 mg 10/20/20 14:56 Calcium Carbonate Chew 500 Mg Tablet PO BID PRN Heartburn Docusate Sodium 250 - 500 mg 10/16/20 09:00 10/21/20 07:53 Docusate Sodium 250 Mg Capsule PO 250 mg DAILY RODOLFO Administration Enoxaparin Sodium 40 mg 10/11/20 09:00 10/21/20 07:55 Enoxaparin 40 Mg/0.4 Ml Syringe SUBQ 40 mg DAILY RODOLFO Administration Furosemide 40 mg 10/19/20 09:00 10/21/20 07:54 Furosemide 40 Mg Tablet PO 40 mg DAILY RODOLFO Administration Insulin Aspart 1 - 9 unit 10/18/20 21:00 10/21/20 07:52 Insulin Aspart 300 Unit/3 Ml Pen SUBQ 1 unit 0800,1200,1700,2100 RODOLFO Administration Protocol Insulin Aspart 4 unit 10/19/20 08:00 10/21/20 07:52 Insulin Aspart 300 Unit/3 Ml Pen SUBQ 4 unit TIDWM RODOFLO Administration Insulin Glargine 17 unit 10/19/20 21:00 10/20/20 20:36 Insulin Glargine 300 Unit/3 Ml Pen SUBQ 17 unit QPM RODOLFO Administration Lactobacillus Rhamnosus 1 cap 10/15/20 10:00 10/21/20 07:54 Lactobacillus Rhamnosus Gg Capsule PO 1 cap DAILY RODOLFO Administration Magnesium Oxide 400 mg 10/16/20 08:00 10/21/20 07:54 Magnesium Oxide 400 Mg Tablet PO 400 mg DAILYWM RODOLFO Administration Mineral Oil 1 applic 10/11/20 09:49 Min Oil/Dimethicon/Coconut Oil 92 Gm Tube TOP PRN PRN Skin Care Multi-Ingredient Ointment 1 applic 10/11/20 09:49 10/20/20 12:28 Zinc Oxide 20% Oint 30 Gm Tube TOP 1 applic PRN PRN Administration Skin Care Multivitamins/Minerals 1 tab 10/13/20 17:00 10/21/20 07:54 Multivitamin W/Minerals Tablet PO 1 tab DAILYWM RODOLFO Administration Nicotine 1 patch 10/11/20 09:00 10/21/20 07:51 Nicotine 14 Mg Patch TOP 1 patch DAILY RODOLFO Administration Nystatin 0 applic 10/11/20 21:00 10/21/20 07:55 Nystatin Powder 15 Gm TOP 1 applic BID RODOLFO Administration Oxymetazoline HCl 2 sprays 10/20/20 13:46 10/20/20 14:05 Oxymetazoline Hcl 100 Sprays Bottle PARTHA 10/22/20 23:59 1 spr BID PRN Administration Nasal Congestion Polyethylene Glycol 17 gm 10/15/20 10:00 10/21/20 08:02 Polyethylene Glycol 3350 17 Gm Packet PO Not Given DAILY RODOLFO Senna 8.6 - 17.2 mg 10/16/20 09:00 10/21/20 08:02 Senna 8.6 Mg Tablet PO Not Given DAILY RODOLFO Sodium Chloride 10 ml 10/10/20 15:00 10/19/20 08:34 Sodium Chloride Flush 0.9% 10 Ml Syringe IVP 10 ml PRN PRN Administration NEEDED PER PROVIDER ORDERS Sodium Chloride 10 ml 10/10/20 17:00 10/21/20 08:03 Sodium Chloride Flush 0.9% 10 Ml Syringe IVP 10 ml 0100,0900,1700 RODOLFO Administration Thiamine HCl 100 mg 10/15/20 09:00 10/21/20 07:53 Thiamine 100 Mg Tablet PO 100 mg DAILY RODOLFO Administration Throat Lozenges 1 lozenge 10/20/20 03:59 10/21/20 07:55 Benzocaine/Menthol Lozenge MM 1 lozenge Q2HR PRN Administration Throat pain Albuterol Sulf [Ventolin Hfa Inhaler] 2 puffs PO Q4H PRN 10/10/20 Budesonide/Formoterol Fumarate [Symbicort 160-4.5 Mcg Inhaler] 1 inh PO BID 10/10/20 Sertraline [Zoloft] 25 mg PO DAILY 10/10/20 Zolpidem Tartrate [Ambien] 10 mg PO QPM PRN 10/10/20 Objective - Vital Signs/Intake & Output Reviewed Vital Signs: Yes Vital Signs: Vital Signs x48h Temp Pulse Pulse Resp BP Pulse Ox 10/21/20 07:20 36.6 C 82 20 123/76 93 10/21/20 05:00 37.2 C 93 20 118/69 91 L 10/21/20 02:51 73 20 Intake & Output: Intake & Output 10/18/20 10/19/20 10/20/20 10/21/20 23:59 23:59 23:59 23:59 Intake Total 3045 1650 2180 740 Output Total 2875 4100 6400 2900 Balance 170 -2450 -4220 -2160 - Objective General Appearance: positive: Alert, Other (looks mare) Eyes Bilateral: positive: Normal inspection Cardiovascular: positive: Regular rate & rhythm, No murmur Abdomen: positive: Non-tender, Nml bowel sounds, No distention Skin: positive: Warm, Dry, Other (Did not visualize heel or buttock decub today (seen by me on admit)) Extremities: positive: Pedal edema (marked improvement from admit; had very swollen 2+ feet, LE and ? thigh edema even has some wrinkling of calf/shins) Neurologic/Psychiatric: positive: Oriented x3 (oriented to place, general time, not to situation, pleasant cooperative), Mood/affect nml - Lab Results Fish Bones: 10/22/20 05:36 10/23/20 05:47 Other Labs: Lab Results x24hrs 10/21/20 10/21/20 10/21/20 Range/Units 07:18 05:23 05:23 WBC 11.9 H (4.8-10.8) x10^3/uL RBC 4.69 L (4.70-6.10) 10^6/uL Hgb 13.1 L (14.0-18.0) g/dL Hct 43.2 (42.0-52.0) % MCV 92.1 (80.0-94.0) fL MCH 27.9 (27.0-31.0) pg MCHC 30.3 L (32.0-36.0) g/dL RDW 14.3 (12.0-15.0) % Plt Count 310 (130-450) 10^3/uL MPV 9.8 (7.4-11.4) fL Neut # (Auto) 8.8 H (1.5-6.6) 10^3/uL Lymph # (Auto) 1.8 (1.5-3.5) 10^3/uL Holt # (Auto) 0.9 (0.0-1.0) 10^3/uL Eos # (Auto) 0.3 (0.0-0.7) 10^3/uL Baso # (Auto) 0.1 (0.0-0.1) 10^3/uL Absolute Nucleated RBC 0.00 x10^3/uL Nucleated RBC % 0.0 /100WBC Sodium 140 (135-145) mmol/L Potassium 5.3 H (3.5-5.0) mmol/L Chloride 92 L (101-111) mmol/L Carbon Dioxide 38 H (21-32) mmol/L Anion Gap 10.0 (6-13) BUN 25 H (6-20) mg/dL Creatinine 0.8 (0.6-1.2) mg/dL Estimated GFR (MDRD) 95 (>89) Glucose 182 H (70-100) mg/dL POC Whole Bld Glucose 152 H (70 - 100) mg/dL Calcium 9.3 (8.5-10.3) mg/dL Total Bilirubin 0.6 (0.2-1.0) mg/dL AST 28 (10-42) IU/L ALT 29 (10-60) IU/L Alkaline Phosphatase 189 H (42-121) IU/L Total Protein 5.5 L (6.7-8.2) g/dL Albumin 2.6 L (3.2-5.5) g/dL Globulin 2.9 (2.1-4.2) g/dL Albumin/Globulin Ratio 0.9 L (1.0-2.2) 10/20/20 10/20/20 10/20/20 Range/Units 20:21 16:44 15:44 WBC (4.8-10.8) x10^3/uL RBC (4.70-6.10) 10^6/uL Hgb (14.0-18.0) g/dL Hct (42.0-52.0) % MCV (80.0-94.0) fL MCH (27.0-31.0) pg MCHC (32.0-36.0) g/dL RDW (12.0-15.0) % Plt Count (130-450) 10^3/uL MPV (7.4-11.4) fL Neut # (Auto) (1.5-6.6) 10^3/uL Lymph # (Auto) (1.5-3.5) 10^3/uL Holt # (Auto) (0.0-1.0) 10^3/uL Eos # (Auto) (0.0-0.7) 10^3/uL Baso # (Auto) (0.0-0.1) 10^3/uL Absolute Nucleated RBC x10^3/uL Nucleated RBC % /100WBC Sodium (135-145) mmol/L Potassium (3.5-5.0) mmol/L Chloride (101-111) mmol/L Carbon Dioxide (21-32) mmol/L Anion Gap (6-13) BUN (6-20) mg/dL Creatinine (0.6-1.2) mg/dL Estimated GFR (MDRD) (>89) Glucose (70-100) mg/dL POC Whole Bld Glucose 210 H 172 H 187 H (70 - 100) mg/dL Calcium (8.5-10.3) mg/dL Total Bilirubin (0.2-1.0) mg/dL AST (10-42) IU/L ALT (10-60) IU/L Alkaline Phosphatase (42-121) IU/L Total Protein (6.7-8.2) g/dL Albumin (3.2-5.5) g/dL Globulin (2.1-4.2) g/dL Albumin/Globulin Ratio (1.0-2.2) 10/20/20 Range/Units 11:39 WBC (4.8-10.8) x10^3/uL RBC (4.70-6.10) 10^6/uL Hgb (14.0-18.0) g/dL Hct (42.0-52.0) % MCV (80.0-94.0) fL MCH (27.0-31.0) pg MCHC (32.0-36.0) g/dL RDW (12.0-15.0) % Plt Count (130-450) 10^3/uL MPV (7.4-11.4) fL Neut # (Auto) (1.5-6.6) 10^3/uL Lymph # (Auto) (1.5-3.5) 10^3/uL Holt # (Auto) (0.0-1.0) 10^3/uL Eos # (Auto) (0.0-0.7) 10^3/uL Baso # (Auto) (0.0-0.1) 10^3/uL Absolute Nucleated RBC x10^3/uL Nucleated RBC % /100WBC Sodium (135-145) mmol/L Potassium (3.5-5.0) mmol/L Chloride (101-111) mmol/L Carbon Dioxide (21-32) mmol/L Anion Gap (6-13) BUN (6-20) mg/dL Creatinine (0.6-1.2) mg/dL Estimated GFR (MDRD) (>89) Glucose (70-100) mg/dL POC Whole Bld Glucose 92 (70 - 100) mg/dL Calcium (8.5-10.3) mg/dL Total Bilirubin (0.2-1.0) mg/dL AST (10-42) IU/L ALT (10-60) IU/L Alkaline Phosphatase (42-121) IU/L Total Protein (6.7-8.2) g/dL Albumin (3.2-5.5) g/dL Globulin (2.1-4.2) g/dL Albumin/Globulin Ratio (1.0-2.2) - Diagnostic Imaging Diagnostic Imaging Results: positive: Final report reviewed Diagnostic Imaging Comments: Full echo report; as above pHtn, Sepsis Event Note (H) - Evaluation Current Stage of Sepsis: Resolved Possible source of Sepsis: positive: Pulmonary, Wound - Sepsis Criteria Sepsis Criteria: Recorded Temperature greater than 38.3C or Less than 36C, Recorded Heart Rate greater than 90 bpm, Recorded Respiratory Rate greater than 20 (as above, the hypothermia, HR, and RR could be due to extreme volume depletion) Assessment/Plan - Problem List (1) Acute respiratory failure with hypoxia Impression: REsolved; Developed hypoxia/oxygen requirement on 10/15 after multiple days IVF for extreme volume depletion on admit Echo showed normal EF but also pulm HTN not noted in prior pogress notes ( Echo 10/15 Nl LV size an fxn EF 65-70%, Moderately dilated RV w/ reduced systolic fxn severely dilated RA, mildly dilated LA, Mod TR, RVSP 74 mmHg; Had several days IV lasix, then changed to PO w/ contraction alkalosis stopping Lasix today 10/21 given the known reduced RV fxn/ preload dependence, I/O 10/19 -2449, 10/20 - 4219 Will consider 9todays weight dry weight 109 kg May need prn lasix dosing, Flores out continue low salt diet no need fluid restriction/ (2) Acute congestive heart failure RESOLVED Acute decompensation resolved related to volume overload w/ IVF since admit as per #1; had acute hypoxemic resp failure on w/ IVF above; Echo 10/15 Nl LV size an fxn EF 65-70%, Moderately dilated RV w/ reduced systolic fxn severely dilated RA, mildly dilated LA, Mod TR, RVSP 74 mmHg; c/ w pulh htno As above stopping lasix today and will evaluate volume status daily, consider if/when needs lasix )possibly M/W/F Required increased oxygen; now back to home flow (uses 02 at home) 112 kg>> now 109. that may be his dry weight (or even a bit below it) low sodium diet added (he likes dysphagia pureed) will readd lasix if neededAcute decompensation resolved; resluted i acute hypoxemic resp failure on w/ IVF Required increased oxygen; now back to home flow (uses 02 at home) (3) Uncontrolled diabetes mellitus with hyperglycemia Unocntrolled on admit due to uncontrolled diet (taking 12 packs of sugar cola per son) and ? if was taking metformin Titrtion of insulin since here: , Some hypoglycemia last week 10/20 glucoses 187, 172, 210 (8p), today 10/21 152 this morning Now No recent episodes of hypoglycemia. His BGs over the past 24 hours have ranged 129-187. No changes made to his insulin regimen today. He will need insulin on discharge. His A1C on admission was >14%. 10/20 note Lantus increased to 16 units 10/18 and 17 units 10/19 Mealtime correction increased to 4 units with meals in addition to sliding scale 10/19 (4) Cognitive impairment Marked improvement since I admitted him on 10/10 and likley at baseline. Appropriate, full sentence responses to quetions, Does not recall me (I wouldhdnt have expected) nor circumstances of admit. Oriented to self, place, year (per prior notes; waxed and waned.) did not tolerate MRI per prior notes; not pursued (5) Peripheral vascular disease no sighns of ischemia, no elevational pallor on L 10/17 LE duplex due to diminished pedal pulses; R SFA: mild to moderate diffuse right SFA disease without focal hemodynamically significant stenosis. LLE runoff significant for suggestive of possible significant SFA stenosis. There is also monophasic low distrance flow the distal runoff vessels suggesting more proximal senosis. There is currently no obvious evidence of ischemia. He was started on aspirin and a statin. No evidence currently of acute ischemia, will contact Vascular Surgery if any s/x occur.consider outpatient vasuclar follow up (6) Metabolic alkalosis contraction alkalosis In past C02 has been 26 before this admit arguing against baselline significatn hypercarbia and metaolic compensation As above. stopping lasix and will reevaluate (7) Hyperkalemia Unclear why , running just above 5, doubt K/H shifts as should no longer be acidotic. will consider check venous ph again. reevaluate off lasix (8) Acute kidney injury / prerenal on admit Much improved 25/0.8 Was 63/1.4 on admit (9) Community acquired bacterial pneumonia Impression: Resolved. He has completed treatment with antibiotics. (10) Self-care deficit Impression: He presented with evidence of self-neglect given multiple areas of skin breakdown and elevated BGs (report he does not check his BGs at home). There have been multiple APS reports made in the past. Appreciate social work input regarding disposition. Plan for discharge to SNF once accepting facility is found and medically ready (likely tomorrow if possible). (4) Uncontrolled diabetes mellitus with hyperglycemia Qualifiers: Diabetes mellitus type: type 2 Qualified Code(s): E11.65 - Type 2 diabetes mellitus with hyperglycemia
[2020-10-21] MEDS: ZINC OXIDE 20% OINT 30 GM TUBE TOP PRN (10:56)
[2020-10-21] MEDS: MIN OIL/DIMETHICON/COCONUT OIL 92 GM TUBE TOP PRN (10:56)
[2020-10-21] MEDS: SODIUM CHLORIDE FLUSH 0.9% 10 ML SYRINGE IVP PRN (11:03)
[2020-10-21] MEDS: OXYMETAZOLINE HCL 100 SPRAYS BOTTLE NAS PRN (11:04)
[2020-10-21] MEDS: CALCIUM CARBONATE CHEW 500 MG TABLET PO PRN (14:25)
[2020-10-21] MEDS: INSULIN GLARGINE 300 UNIT/3 ML PEN SUBQ SCH (20:55)
[2020-10-21] MEDS: ATORVASTATIN 40 MG TABLET PO SCH (20:56)
[2020-10-22] MEDS: SODIUM CHLORIDE FLUSH 0.9% 10 ML SYRINGE IVP SCH ×3 (01:46→17:26)
[2020-10-22] MEDS: ACETAMINOPHEN 500 MG TABLET PO PRN ×2 (01:56→18:06)
[2020-10-22] MEDS: BENZOCAINE/MENTHOL LOZENGE MM PRN ×3 (02:55→18:07)
[2020-10-22 06:22] LABS: BASOPHILS # (AUTO) 0.1 10^3/uL (0.0-0.1); BASOPHILS % (AUTO) 0.9 %; EOSINOPHILS # (AUTO) 0.2 10^3/uL (0.0-0.7); EOSINOPHILS % (AUTO) 2.2 %; HCT - HEMATOCRIT 45.6 % (42.0-52.0); HGB - HEMOGLOBIN 13.5 g/dL (14.0-18.0); LYMPHOCYTES # (AUTO) 2.1 10^3/uL (1.5-3.5); MEAN CORPUSCULAR HEMOGLOBIN 27.5 pg (27.0-31.0); MEAN CORPUSCULAR HGB CONC 29.6 g/dL (32.0-36.0); MEAN CORPUSCULAR VOLUME 92.9 fL (80.0-94.0); MEAN PLATELET VOLUME 10.1 fL (7.4-11.4); MONOCYTES # (AUTO) 0.9 10^3/uL (0.0-1.0); MONOCYTES % (AUTO) 7.8 %; NEUTROPHILS # (AUTO) 7.6 10^3/uL (1.5-6.6); NEUTROPHILS % (AUTO) 69.6 %; PLT - PLATELET COUNT 260 10^3/uL (130-450); RED BLOOD COUNT 4.91 10^6/uL (4.70-6.10); RED CELL DISTRIBUTION WIDTH 14.3 % (12.0-15.0); WHITE BLOOD COUNT 10.9 x10^3/uL (4.8-10.8)
[2020-10-22 06:29] LABS: ALBUMIN 2.7 g/dL (3.2-5.5); ALBUMIN/GLOBULIN RATIO 0.8 (1.0-2.2); BILIRUBIN,TOTAL 0.6 mg/dL (0.2-1.0); CALCIUM 9.4 mg/dL (8.5-10.3); CREATININE 0.7 mg/dL (0.6-1.2); POTASSIUM 5.2 mmol/L (3.5-5.0); TOTAL PROTEIN 5.9 g/dL (6.7-8.2)
[2020-10-22] MEDS: INSULIN ASPART 300 UNIT/3 ML PEN SUBQ SCH ×7 (07:43→20:38)
[2020-10-22] MEDS: ENOXAPARIN 40 MG/0.4 ML SYRINGE SUBQ SCH (08:51)
[2020-10-22] MEDS: CALCIUM CARBONATE CHEW 500 MG TABLET PO PRN (08:52)
[2020-10-22] MEDS: polyethylene glycoL 3350 17 GM PACKET PO SCH (08:52)
[2020-10-22] MEDS: LACTOBACILLUS RHAMNOSUS GG CAPSULE PO SCH (08:52)
[2020-10-22] MEDS: SENNA 8.6 MG TABLET PO SCH (08:52)
[2020-10-22] MEDS: DOCUSATE SODIUM 250 MG CAPSULE PO SCH (08:53)
[2020-10-22] MEDS: MAGNESIUM OXIDE 400 MG TABLET PO SCH (08:53)
[2020-10-22] MEDS: THIAMINE 100 MG TABLET PO SCH (08:53)
[2020-10-22] MEDS: ASPIRIN EC 81 MG TABLET PO SCH (08:53)
[2020-10-22] MEDS: MULTIVITAMIN W/MINERALS TABLET PO SCH (08:53)
[2020-10-22] MEDS: NYSTATIN POWDER 15 GM TOP SCH ×2 (08:54→19:26)
[2020-10-22] MEDS: NICOTINE 14 MG PATCH TOP SCH (08:55)
[2020-10-22] MEDS: IPRATROPIUM/ALBUTEROL 3 ML NEB INH PRN (10:50)
--- NOTE | 2020-10-22 12:28 | PROVIDER PROGRESS NOTE ---
Subjective - Prog Note Date Prog Note Date: 10/22/20 Prog Note Time: 12:25 (seen early this morning) - Subjective Pt reports feeling: No change ("I'm ready to get out of here, dont want them to keep "throwing " things (e.g. nebulizer) at me. "yeah they filled me up, then dried me out" (when talking about the d/c of lasix yesterday and possible need for prn or less than daily) NO specific complaint) Current Medications - Current Medications Current Medications: Active Medications Generic Name Dose Route Start Last Admin Trade Name Freq PRN Reason Stop Dose Admin Acetaminophen 500 mg 10/12/20 17:08 10/22/20 01:56 Acetaminophen 500 Mg Tablet PO 500 mg Q4HR PRN Administration Pain or Fever > 38C (100.4F) Albuterol/Ipratropium 3 ml 10/11/20 19:29 10/22/20 10:50 Ipratropium/Albuterol 3 Ml Neb INH 3 ml RTQID PRN Administration Shortness of Air/Wheezing Aspirin 81 mg 10/18/20 09:00 10/22/20 08:53 Aspirin Ec 81 Mg Tablet PO 81 mg DAILY RODOLFO Administration Atorvastatin Calcium 40 mg 10/17/20 21:00 10/21/20 20:56 Atorvastatin 40 Mg Tablet PO 40 mg QPM RODOLFO Administration Calcium Carbonate/Glycine 500 mg 10/20/20 14:56 10/22/20 08:52 Calcium Carbonate Chew 500 Mg Tablet PO 500 mg BID PRN Administration Heartburn Docusate Sodium 250 - 500 mg 10/16/20 09:00 10/22/20 08:53 Docusate Sodium 250 Mg Capsule PO 250 mg DAILY RODOLFO Administration Enoxaparin Sodium 40 mg 10/11/20 09:00 10/22/20 08:51 Enoxaparin 40 Mg/0.4 Ml Syringe SUBQ 40 mg DAILY RODOLFO Administration Insulin Aspart 1 - 9 unit 10/18/20 21:00 10/22/20 07:43 Insulin Aspart 300 Unit/3 Ml Pen SUBQ Not Given 0800,1200,1700,2100 [facility] Protocol Insulin Aspart 4 unit 10/19/20 08:00 10/22/20 08:54 Insulin Aspart 300 Unit/3 Ml Pen SUBQ 4 unit TIDWM RODOLFO Administration Insulin Glargine 17 unit 10/19/20 21:00 10/21/20 20:55 Insulin Glargine 300 Unit/3 Ml Pen SUBQ 17 unit QPM RODOLFO Administration Lactobacillus Rhamnosus 1 cap 10/15/20 10:00 10/22/20 08:52 Lactobacillus Rhamnosus Gg Capsule PO 1 cap DAILY RODOLFO Administration Magnesium Oxide 400 mg 10/16/20 08:00 10/22/20 08:53 Magnesium Oxide 400 Mg Tablet PO 400 mg DAILYWM RODOLFO Administration Mineral Oil 1 applic 10/11/20 09:49 10/21/20 10:56 Min Oil/Dimethicon/Coconut Oil 92 Gm Tube TOP 1 applic PRN PRN Administration Skin Care Multi-Ingredient Ointment 1 applic 10/11/20 09:49 10/21/20 10:56 Zinc Oxide 20% Oint 30 Gm Tube TOP 1 applic PRN PRN Administration Skin Care Multivitamins/Minerals 1 tab 10/13/20 17:00 10/22/20 08:53 Multivitamin W/Minerals Tablet PO 1 tab DAILYWM RODOLFO Administration Nicotine 1 patch 10/11/20 09:00 10/22/20 08:55 Nicotine 14 Mg Patch TOP Not Given DAILY ROODLFO Nystatin 0 applic 10/11/20 21:00 10/22/20 08:54 Nystatin Powder 15 Gm TOP 1 applic BID RODOLFO Administration Oxymetazoline HCl 2 sprays 10/20/20 13:46 10/21/20 11:04 Oxymetazoline Hcl 100 Sprays Bottle PARTHA 10/22/20 23:59 1 spr BID PRN Administration Nasal Congestion Polyethylene Glycol 17 gm 10/15/20 10:00 10/22/20 08:52 Polyethylene Glycol 3350 17 Gm Packet PO 17 gm DAILY RODOLFO Administration Senna 8.6 - 17.2 mg 10/16/20 09:00 10/22/20 08:52 Senna 8.6 Mg Tablet PO 8.6 mg DAILY RODOLFO Administration Sodium Chloride 10 ml 10/10/20 15:00 10/21/20 11:03 Sodium Chloride Flush 0.9% 10 Ml Syringe IVP 10 ml PRN PRN Administration NEEDED PER PROVIDER ORDERS Sodium Chloride 10 ml 10/10/20 17:00 10/22/20 08:55 Sodium Chloride Flush 0.9% 10 Ml Syringe IVP 10 ml 0100,0900,1700 RODOLFO Administration Thiamine HCl 100 mg 10/15/20 09:00 10/22/20 08:53 Thiamine 100 Mg Tablet PO 100 mg DAILY RODOLFO Administration Throat Lozenges 1 lozenge 10/20/20 03:59 10/22/20 02:55 Benzocaine/Menthol Lozenge MM 1 lozenge Q2HR PRN Administration Throat pain Albuterol Sulf [Ventolin Hfa Inhaler] 2 puffs PO Q4H PRN 10/10/20 Budesonide/Formoterol Fumarate [Symbicort 160-4.5 Mcg Inhaler] 1 inh PO BID 10/10/20 Sertraline [Zoloft] 25 mg PO DAILY 10/10/20 Zolpidem Tartrate [Ambien] 10 mg PO QPM PRN 10/10/20 Objective - Vital Signs/Intake & Output Reviewed Vital Signs: Yes Vital Signs: Vital Signs x48h Temp Pulse Pulse Resp BP Pulse Ox 10/22/20 10:50 93 24 10/22/20 07:25 36.4 C L 86 22 133/72 H 94 BP's last day 148/94, 133/72, 126/71 9/6, 113/82 9/5 02 sat 97% 4L, 94% 2L, Intake & Output: Intake & Output 10/19/20 10/20/20 10/21/20 10/22/20 23:59 23:59 23:59 23:59 Intake Total 1650 2180 1850 820 Output Total 4100 6400 4400 Balance -2450 -4220 -2550 820 - Objective General Appearance: positive: No acute distress, Alert, Other (finishing breakfast, drinking coffee when I entered, Awake alert, doesnt recall specific details of admit, pleaseant , cooperative , perhaps the slightest bit disgruntled about being here) Eyes Bilateral: positive: Normal inspection Respiratory: positive: Chest non-tender, No respiratory distress, Breath sounds nml, Other (oxygen nasal cannula, currently to cheek, not nares) Cardiovascular: positive: Regular rate & rhythm, No murmur Abdomen: positive: Nml bowel sounds, No distention, Other (obese, Flores out). negative: Tenderness Skin: positive: Warm, Dry, Decubitus (Heel and buttock decubs seen ~ 3pm R heel ulcer markedly improved since I saw on admission. L heel currently dressed, but per RN shallow, resolving R buttock w/ dark erythema, patient scratched open some skin, but much improved) Extremities: positive: Other (wrinkled shins and feet.). negative: Pedal edema Neurologic/Psychiatric: positive: Oriented x3, Mood/affect nml - Lab Results Fish Bones: 10/22/20 05:36 10/22/20 05:36 Other Labs: Lab Results x24hrs 10/22/20 10/22/20 10/22/20 Range/Units 11:12 07:23 05:36 WBC (4.8-10.8) x10^3/uL RBC (4.70-6.10) 10^6/uL Hgb (14.0-18.0) g/dL Hct (42.0-52.0) % MCV (80.0-94.0) fL MCH (27.0-31.0) pg MCHC (32.0-36.0) g/dL RDW (12.0-15.0) % Plt Count (130-450) 10^3/uL MPV (7.4-11.4) fL Neut # (Auto) (1.5-6.6) 10^3/uL Lymph # (Auto) (1.5-3.5) 10^3/uL [place] # (Auto) (0.0-1.0) 10^3/uL Eos # (Auto) (0.0-0.7) 10^3/uL Baso # (Auto) (0.0-0.1) 10^3/uL Absolute Nucleated RBC x10^3/uL Nucleated RBC % /100WBC Sodium 139 (135-145) mmol/L Potassium 5.2 H (3.5-5.0) mmol/L Chloride 92 L (101-111) mmol/L Carbon Dioxide 36 H (21-32) mmol/L Anion Gap 11.0 (6-13) BUN 21 H (6-20) mg/dL Creatinine 0.7 (0.6-1.2) mg/dL Estimated GFR (MDRD) 111 (>89) Glucose 140 H (70-100) mg/dL POC Whole Bld Glucose 173 H 117 H (70 - 100) mg/dL Calcium 9.4 (8.5-10.3) mg/dL Total Bilirubin 0.6 (0.2-1.0) mg/dL AST 25 (10-42) IU/L ALT 28 (10-60) IU/L Alkaline Phosphatase 174 H (42-121) IU/L Total Protein 5.9 L (6.7-8.2) g/dL Albumin 2.7 L (3.2-5.5) g/dL Globulin 3.2 (2.1-4.2) g/dL Albumin/Globulin Ratio 0.8 L (1.0-2.2) 10/22/20 10/21/20 10/21/20 Range/Units 05:36 20:46 16:50 WBC 10.9 H (4.8-10.8) x10^3/uL RBC 4.91 (4.70-6.10) 10^6/uL Hgb 13.5 L (14.0-18.0) g/dL Hct 45.6 (42.0-52.0) % MCV 92.9 (80.0-94.0) fL MCH 27.5 (27.0-31.0) pg MCHC 29.6 L (32.0-36.0) g/dL RDW 14.3 (12.0-15.0) % Plt Count 260 (130-450) 10^3/uL MPV 10.1 (7.4-11.4) fL Neut # (Auto) 7.6 H (1.5-6.6) 10^3/uL Lymph # (Auto) 2.1 (1.5-3.5) 10^3/uL [place] # (Auto) 0.9 (0.0-1.0) 10^3/uL Eos # (Auto) 0.2 (0.0-0.7) 10^3/uL Baso # (Auto) 0.1 (0.0-0.1) 10^3/uL Absolute Nucleated RBC 0.00 x10^3/uL Nucleated RBC % 0.0 /100WBC Sodium (135-145) mmol/L Potassium (3.5-5.0) mmol/L Chloride (101-111) mmol/L Carbon Dioxide (21-32) mmol/L Anion Gap (6-13) BUN (6-20) mg/dL Creatinine (0.6-1.2) mg/dL Estimated GFR (MDRD) (>89) Glucose (70-100) mg/dL POC Whole Bld Glucose 264 H 126 H (70 - 100) mg/dL Calcium (8.5-10.3) mg/dL Total Bilirubin (0.2-1.0) mg/dL AST (10-42) IU/L ALT (10-60) IU/L Alkaline Phosphatase (42-121) IU/L Total Protein (6.7-8.2) g/dL Albumin (3.2-5.5) g/dL Globulin (2.1-4.2) g/dL Albumin/Globulin Ratio (1.0-2.2) Sepsis Event Note (H) - Evaluation Current Stage of Sepsis: Resolved Possible source of Sepsis: positive: Pulmonary, Wound - Sepsis Criteria Sepsis Criteria: Recorded Temperature greater than 38.3C or Less than 36C, Recorded Heart Rate greater than 90 bpm, Recorded Respiratory Rate greater than 20 (as above, the hypothermia, HR, and RR could be due to extreme volume depletion) Assessment/Plan - Problem List (1) Acute respiratory failure with hypoxia Impression: Resolved Developed hypoxia/oxygen requirement on 10/15 after multiple days IVF for extreme volume depletion on admit Echo showed normal EF but also pulm HTN, ( Echo 10/15 Nl LV size an fxn EF 65-70%, Moderately dilated RV w/ reduced systolic fxn severely dilated RA, mildly dilated LA, Mod TR, RVSP 74 mmHg; Had several days IV lasix, then changed to PO w/ contraction alkalosis Holding Lasix as of yesterday 10/21 given the known reduced RV fxn, I/O 10/19 -2449, 10/20 - 10/21 -2549 Will consider 10/21 weight dry weight 109 kg May need prn lasix dosing, Flores out yesterday continue low salt diet no need fluid restriction/ dc (2) Acute congestive heart failure/ Volume overload; HFpEF may be preload dependent w/ RV dysfxn RESOLVEd Acute decompensation resolved related to volume overload w/ IVF since admit as per #1 Normal EF, blood pressure controlled on no meds above, will evaluate volume status daily, consider if/when needs lasix )possibly M/W/F ; resluted i acute hypoxemic resp failure on w/ IVF Required increased oxygen; now back to home flow (uses 02 at home) c/ w pulh htno require 2L NC, satting at 95% this morning. He states that he uses oxygen at home. I assessed him before he got out of bed this morning and he did not have any lower extremity or pedal edema after lying in bed all night. BNP today continues to trend down and is 260 and Echo revealed a preserved ejection fraction. His daily weights have been trending down, 112kg today. Given lack of edema he may be close to or at his dry weight. Fluid restriction increased to 2.5L /day given his feelings of thirst and no edema. low sodium diet added (he likes dysphagia pureed) will readd lasix if needed (3) Uncontrolled diabetes mellitus with hyperglycemia Much improved on current regimen Uncontrolled on admit due to uncontrolled diet (taking 12 packs of sugar cola per son) and ? if was taking metformin A1C on admission was >14%. Titrtion of insulin since here: , was hypoglycemic w/ insulin 10/16: 10/22 pre breakfast 117 pre unch 173 10/20 glucoses 187, 172, 210 (8p), 10/21 152 pre breakfast, 213 pre lunch 126 4p pre dinner PLAN continue w/ current lantus 17 pm (on 17 units since 10/19 ), 4 unit prandial, + correctional Will reeval later if pm dos eto increase (4) Cognitive impairment/metabolic encephalopathy at admit Resolved Marked improvement since I admitted him on 10/10 and likley at baseline. Oriented to self, place, year (per prior notes; waxed and waned.) did not tolerate MRI per prior notes; not pursued (5) Peripheral vascular disease no sighns of ischemia, no elevational pallor on L 10/17 LE duplex due to diminished pedal pulses; R SFA: mild to moderate diffuse right SFA disease without focal hemodynamically significant stenosis. LLE runoff significant for suggestive of possible significant SFA stenosis. There is also monophasic low distrance flow the distal runoff vessels suggesting more proximal senosis. There is currently no obvious evidence of ischemia. He was started on aspirin and a statin. No evidence currently of acute ischemia, will contact Vascular Surgery if any s/x occur. He should follow up outpatient with Vascular. (6) Metabolic alkalosis contraction alkalosis to bicarb of 43 on 9/6. Improving 36 today (lasix stopped 10/21 as above/ RV dysfxn and pHtn contribute to the BNP [place] COPD, but on prior admits bicarb 26 arguing against chronic hypercapnia; (likely did have hypoventilatory hypercapnia on admission when was nearly obtunded) As above; lasix on hold, expect bicar will return to his baseline (7) Hyperkalemia Impression: Has had K ~ 5 since admit; stable 5.2, 5.1, 5.1, 5.3, 5.2 ( of note those recent values reflect lasix as well, but not increased today) unclear why, ? element of rTA NO exogenous K doubt he is still acidodic w/ compensatory K shifts out of intracellular cell space BMP again tomorrow, will add a venous ph to am labs just since has had no recheck; highly doubt acidodic (8) Acute kidney injury / prerenal on admit (due to extreme volume depletion) Resolved Was 63/1.4 on admit (21/0.7 today) Suspect he is ~ dry weight , even a bit low yesterday and today see above (9) Community acquired bacterial pneumonia/ suspected as possible cause of admission state Impression: Resolved. He has completed treatment with antibiotics. (10) Self-care deficit Impression: He presented with evidence of self-neglect given multiple areas of skin breakdown and elevated BGs (report he does not check his BGs at home). There have been multiple APS reports made in the past. Appreciate social work input regarding disposition. Plan for discharge to SNF once accepting facility is found and medically ready (likely tomorrow if possible). 11) Buttock and heel decubitis present on admissin due to prolonged time in chair Decubitis much improved w/ nursing care, and offloading (5) Uncontrolled diabetes mellitus with hyperglycemia Qualifiers: Diabetes mellitus type: type 2 Qualified Code(s): E11.65 - Type 2 diabetes mellitus with hyperglycemia
[2020-10-22] MEDS: INSULIN GLARGINE 300 UNIT/3 ML PEN SUBQ SCH (21:03)
[2020-10-22] MEDS: ATORVASTATIN 40 MG TABLET PO SCH (21:03)
[2020-10-23 06:04] LABS: CALCIUM 9.6 mg/dL (8.5-10.3); CREATININE 0.6 mg/dL (0.6-1.2); POTASSIUM 4.9 mmol/L (3.5-5.0)
[2020-10-23] MEDS: SODIUM CHLORIDE FLUSH 0.9% 10 ML SYRINGE IVP SCH ×4 (07:59→23:32)
[2020-10-23] MEDS: ASPIRIN EC 81 MG TABLET PO SCH (09:23)
[2020-10-23] MEDS: ENOXAPARIN 40 MG/0.4 ML SYRINGE SUBQ SCH (09:23)
[2020-10-23] MEDS: SENNA 8.6 MG TABLET PO SCH (09:23)
[2020-10-23] MEDS: polyethylene glycoL 3350 17 GM PACKET PO SCH (09:23)
[2020-10-23] MEDS: LACTOBACILLUS RHAMNOSUS GG CAPSULE PO SCH (09:24)
[2020-10-23] MEDS: MULTIVITAMIN W/MINERALS TABLET PO SCH (09:24)
[2020-10-23] MEDS: MAGNESIUM OXIDE 400 MG TABLET PO SCH (09:24)
[2020-10-23] MEDS: THIAMINE 100 MG TABLET PO SCH (09:24)
[2020-10-23] MEDS: DOCUSATE SODIUM 250 MG CAPSULE PO SCH (09:24)
[2020-10-23] MEDS: NYSTATIN POWDER 15 GM TOP SCH ×2 (09:25→20:02)
[2020-10-23] MEDS: INSULIN ASPART 300 UNIT/3 ML PEN SUBQ SCH ×7 (09:35→20:22)
[2020-10-23] MEDS: NICOTINE 14 MG PATCH TOP SCH (09:39)
[2020-10-23] MEDS: BENZOCAINE/MENTHOL LOZENGE MM PRN ×4 (09:41→23:32)
[2020-10-23] MEDS: IPRATROPIUM/ALBUTEROL 3 ML NEB INH PRN (13:01)
--- NOTE | 2020-10-23 15:04 | PROVIDER PROGRESS NOTE ---
Subjective - Prog Note Date Prog Note Date: 10/23/20 Prog Note Time: 15:02 - Subjective Pt reports feeling: No change ("I'm lonely" (re: why are you yelling for Ivett CASTRO), no specific complaints) Current Medications - Current Medications Current Medications: Active Medications Generic Name Dose Route Start Last Admin Trade Name Freq PRN Reason Stop Dose Admin Acetaminophen 500 mg 10/12/20 17:08 10/22/20 18:06 Acetaminophen 500 Mg Tablet PO 500 mg Q4HR PRN Administration Pain or Fever > 38C (100.4F) Albuterol/Ipratropium 3 ml 10/11/20 19:29 10/23/20 13:01 Ipratropium/Albuterol 3 Ml Neb INH 3 ml RTQID PRN Administration Shortness of Air/Wheezing Aspirin 81 mg 10/18/20 09:00 10/23/20 09:23 Aspirin Ec 81 Mg Tablet PO 81 mg DAILY RODOLFO Administration Atorvastatin Calcium 40 mg 10/17/20 21:00 10/22/20 21:03 Atorvastatin 40 Mg Tablet PO 40 mg QPM RODOLFO Administration Calcium Carbonate/Glycine 500 mg 10/20/20 14:56 10/22/20 08:52 Calcium Carbonate Chew 500 Mg Tablet PO 500 mg BID PRN Administration Heartburn Docusate Sodium 250 - 500 mg 10/16/20 09:00 10/23/20 09:24 Docusate Sodium 250 Mg Capsule PO 250 mg DAILY RODOLFO Administration Enoxaparin Sodium 40 mg 10/11/20 09:00 10/23/20 09:23 Enoxaparin 40 Mg/0.4 Ml Syringe SUBQ 40 mg DAILY RODOLFO Administration Insulin Aspart 1 - 9 unit 10/18/20 21:00 10/23/20 11:54 Insulin Aspart 300 Unit/3 Ml Pen SUBQ 3 unit 0800,1200,1700,2100 RODOLFO Administration Protocol Insulin Aspart 4 unit 10/19/20 08:00 10/23/20 11:55 Insulin Aspart 300 Unit/3 Ml Pen SUBQ 4 unit TIDWM RODOLFO Administration Insulin Glargine 17 unit 10/19/20 21:00 10/22/20 21:03 Insulin Glargine 300 Unit/3 Ml Pen SUBQ 17 unit QPM RODOLFO Administration Lactobacillus Rhamnosus 1 cap 10/15/20 10:00 10/23/20 09:24 Lactobacillus Rhamnosus Gg Capsule PO 1 cap DAILY RODOLFO Administration Magnesium Oxide 400 mg 10/16/20 08:00 10/23/20 09:24 Magnesium Oxide 400 Mg Tablet PO 400 mg DAILYWM RODOLFO Administration Mineral Oil 1 applic 10/11/20 09:49 10/21/20 10:56 Min Oil/Dimethicon/Coconut Oil 92 Gm Tube TOP 1 applic PRN PRN Administration Skin Care Multi-Ingredient Ointment 1 applic 10/11/20 09:49 10/21/20 10:56 Zinc Oxide 20% Oint 30 Gm Tube TOP 1 applic PRN PRN Administration Skin Care Multivitamins/Minerals 1 tab 10/13/20 17:00 10/23/20 09:24 Multivitamin W/Minerals Tablet PO 1 tab DAILYWM RODOLFO Administration Nicotine 1 patch 10/11/20 09:00 10/23/20 09:39 Nicotine 14 Mg Patch TOP Not Given DAILY RODOLFO Nystatin 0 applic 10/11/20 21:00 10/23/20 09:25 Nystatin Powder 15 Gm TOP 1 applic BID RODOLFO Administration Polyethylene Glycol 17 gm 10/15/20 10:00 10/23/20 09:23 Polyethylene Glycol 3350 17 Gm Packet PO 17 gm DAILY RODOLFO Administration Senna 8.6 - 17.2 mg 10/16/20 09:00 10/23/20 09:23 Senna 8.6 Mg Tablet PO 8.6 mg DAILY RODOLFO Administration Sodium Chloride 10 ml 10/10/20 15:00 10/21/20 11:03 Sodium Chloride Flush 0.9% 10 Ml Syringe IVP 10 ml PRN PRN Administration NEEDED PER PROVIDER ORDERS Sodium Chloride 10 ml 10/10/20 17:00 10/23/20 11:53 Sodium Chloride Flush 0.9% 10 Ml Syringe IVP 10 ml 0100,0900,1700 RODOLFO Administration Thiamine HCl 100 mg 10/15/20 09:00 10/23/20 09:24 Thiamine 100 Mg Tablet PO 100 mg DAILY RODOLFO Administration Throat Lozenges 1 lozenge 10/20/20 03:59 10/23/20 12:53 Benzocaine/Menthol Lozenge MM 1 lozenge Q2HR PRN Administration Throat pain Albuterol Sulf [Ventolin Hfa Inhaler] 2 puffs PO Q4H PRN 10/10/20 Budesonide/Formoterol Fumarate [Symbicort 160-4.5 Mcg Inhaler] 1 inh PO BID 10/10/20 Sertraline [Zoloft] 25 mg PO DAILY 10/10/20 Zolpidem Tartrate [Ambien] 10 mg PO QPM PRN 10/10/20 Objective - Vital Signs/Intake & Output Reviewed Vital Signs: Yes Vital Signs: Vital Signs x48h Temp Pulse Pulse Resp BP Pulse Ox 10/23/20 13:02 94 22 10/23/20 08:09 36.4 C L 95 22 124/76 98 Intake & Output: Intake & Output 10/20/20 10/21/20 10/22/20 10/23/20 23:59 23:59 23:59 23:59 Intake Total 2180 1850 2360 800 Output Total 6400 4400 1050 Balance -4220 -2550 2360 -250 - Objective General Appearance: positive: No acute distress, Alert, Other (sitting up eating breakfast, seen later in day as well , watching TV Pleasant, cooperative, though occasionally calls out) Respiratory: positive: No respiratory distress, Breath sounds nml, Other (wearing 2L NC, however Sa02 in 90s) Cardiovascular: positive: Regular rate & rhythm, No murmur Abdomen: positive: Nml bowel sounds, No distention. negative: Tenderness Skin: positive: Warm, Dry, Other (R buttock decub w/ maroonish erythema, small upper excoriated area where he scratched R heel decub largely resolved L heel w dressing but per nursing staff, largely resolved) Extremities: negative: Pedal edema Neurologic/Psychiatric: positive: Oriented x3 - Lab Results Fish Bones: 10/22/20 05:36 10/24/20 05:59 Other Labs: Lab Results x24hrs 10/23/20 10/23/20 10/23/20 Range/Units 11:20 07:40 05:47 Sodium 139 (135-145) mmol/L Potassium 4.9 (3.5-5.0) mmol/L Chloride 95 L (101-111) mmol/L Carbon Dioxide 36 H (21-32) mmol/L Anion Gap 8.0 (6-13) BUN 20 (6-20) mg/dL Creatinine 0.6 (0.6-1.2) mg/dL Estimated GFR (MDRD) 132 (>89) Glucose 166 H (70-100) mg/dL POC Whole Bld Glucose 182 H 174 H (70 - 100) mg/dL Calcium 9.6 (8.5-10.3) mg/dL 10/22/20 10/22/20 Range/Units 20:31 16:46 Sodium (135-145) mmol/L Potassium (3.5-5.0) mmol/L Chloride (101-111) mmol/L Carbon Dioxide (21-32) mmol/L Anion Gap (6-13) BUN (6-20) mg/dL Creatinine (0.6-1.2) mg/dL Estimated GFR (MDRD) (>89) Glucose (70-100) mg/dL POC Whole Bld Glucose 117 H 233 H (70 - 100) mg/dL Calcium (8.5-10.3) mg/dL Sepsis Event Note (H) - Evaluation Current Stage of Sepsis: Resolved Possible source of Sepsis: positive: Pulmonary, Wound - Sepsis Criteria Sepsis Criteria: Recorded Temperature greater than 38.3C or Less than 36C, Recorded Heart Rate greater than 90 bpm, Recorded Respiratory Rate greater than 20 (as above, the hypothermia, HR, and RR could be due to extreme volume depletion) Assessment/Plan - Problem List (1) Acute respiratory failure with hypoxia Impression: Resolved Developed hypoxia/oxygen requirement on 10/15 after multiple days IVF for extreme volume depletion on admit Echo showed normal EF but also pulm HTN, ( Echo 10/15 Nl LV size an fxn EF 65-70%, Moderately dilated RV w/ reduced systolic fxn severely dilated RA, mildly dilated LA, Mod TR, RVSP 74 mmHg; (Much of his BNP is from R side/PHTN) Had several days IV lasix, then changed to PO w/ contraction alkalosis Holding Lasix as of 10/21 given the known reduced RV fxn, I/O 10/19 -245, 10/20 - 4220 10/21 -25510/22 2360+ (? uninterpretable w/ no output measured) Had considered 10/21 weight dry weight 109 kg BUT is now 104 kg May need prn lasix dosing (but doesnt at this point) No signs of volume overload . No pretibial or pedal edema (is even a bit wrinkled); He was grossly edematous on admit I/O not accurate w/ incontinence continue low salt diet no need fluid restriction/ dc'd yesterday Consider prn lasix on d/c if LE edema returns (w/ controlled diet in monitored setting may not be an issue) (2) Acute congestive heart failure/ Volume overload; HFpEF may be preload dependent w/ RV dysfxn RESOLVED Acute decompensation resolved related to volume overload w/ IVF since admit as p er #1 Normal EF, blood pressure controlled on no meds above, evaluate volume status daily, consider if/when needs lasix )possibly M/W/F ; resluted i acute hypoxemic resp failure on w/ IVF Required increased oxygen; now back to home flow (uses 02 at home) c/ w pulh htno require 2L NC, satting at 95% this morning. He states that he uses oxygen at home. I assessed him before he got out of bed this morning and he did not have any lower extremity or pedal edema after lying in bed all night. BNP today continues to trend down and is 260 and Echo revealed a preserved ejection fraction. His daily weights have been trending down, 112kg today. Given lack of edema he may be close to or at his dry weight. Fluid restriction increased to 2.5L /day given his feelings of thirst and no edema. low sodium diet added (he likes dysphagia pureed) will readd lasix if needed (3) Uncontrolled diabetes mellitus with hyperglycemia Much improved on current regimen/Uncontrolled on admit due to uncontrolled diet (taking 12 packs of sugar cola per son) and ? if was taking metformin A1C on admission was >14%. Is in the 140-180 range PLAN continue w/ current lantus 17 pm (on 17 units since 10/19 ), 4 unit prandial, + correctional (4) Cognitive impairment/metabolic encephalopathy at admit Resolved/ Marked improvement since I admitted him on 10/10 and lexy at baseline. Oriented to self, place, year (per prior notes; waxed and waned.) did not tolerate brain MRI per prior notes; not pursued (#) Peripheral vascular disease On presentation (acidotic) feet were cold/ very clamped down peripherally Now feet are warm, pink, + pulses/ Continue ASA and statin, no urgent need for vascular intervention / can consider as outpatient if worsens 10/17 evidently there was some concern for PVD and was evaluated LE duplex due to diminished pedal pulses; R SFA: mild to moderate diffuse right SFA disease without focal hemodynamically significant stenosis. LLE runoff significant for suggestive of possible significant SFA stenosis. There is also monophasic low distrance flow the distal runoff vessels suggesting more proximal senosis. (#) Metabolic alkalosis REsolving; contraction alkalosis to bicarb of 43 on 10/20 w/ vigorous thiazide diuresis w/ volume overload. Improving 36 10/22 and today (lasix stopped 10/21 as above/ RV dysfxn and pHtn contribute to the BNP KNown COPD, but on prior admits bicarb 26 arguing against chronic hypercapnia; (likely did have hypoventilatory hypercapnia on admission when was nearly obtunded) As above; lasix on hold, expect bicar will return to his baseline (7) Hyperkalemia Impression: Has had K ~ 5 since admit; stable 5.2, 5.1, 5.1, 5.3, 5.2>> 4.9 today (WAS intially acidotic, may have reflected H/K shifts) ( Peristent K > 5 even reflect thiazide diuresis Unexpectedly, after stopping diuresis K normal (8) Acute kidney injury / prerenal on admit (due to extreme volume depletion) Resolved Was extremely intravascularly volume deplete on admission (#) Community acquired bacterial pneumonia/ suspected as possible cause of admission state Resolved. He has completed treatment with antibiotics. (#) Self-care deficit Social work still exploring options for placement All have declined so far Medically stable for discharge (He presented with evidence of self-neglect given multiple areas of skin breakdown and elevated BGs (report he does not check his BGs at home). There have been multiple APS reports made in the past. 11) Buttock and heel decubitis present on admissin due to prolonged time in chair Decubitis much improved w/ nursing care, and offloading (4) Uncontrolled diabetes mellitus with hyperglycemia Qualifiers: Diabetes mellitus type: type 2 Qualified Code(s): E11.65 - Type 2 diabetes mellitus with hyperglycemia
[2020-10-23] MEDS: ATORVASTATIN 40 MG TABLET PO SCH (20:02)
[2020-10-23] MEDS: MIN OIL/DIMETHICON/COCONUT OIL 92 GM TUBE TOP PRN (20:03)
[2020-10-23] MEDS: ZINC OXIDE 20% OINT 30 GM TUBE TOP PRN (20:03)
[2020-10-23] MEDS: INSULIN GLARGINE 300 UNIT/3 ML PEN SUBQ SCH (20:22)
[2020-10-24] MEDS: IPRATROPIUM/ALBUTEROL 3 ML NEB INH PRN (01:59)
[2020-10-24] MEDS: ACETAMINOPHEN 500 MG TABLET PO PRN ×3 (02:51→18:57)
[2020-10-24 06:27] LABS: CALCIUM 8.8 mg/dL (8.5-10.3); CREATININE 0.6 mg/dL (0.6-1.2); POTASSIUM 4.6 mmol/L (3.5-5.0)
[2020-10-24] MEDS: MIN OIL/DIMETHICON/COCONUT OIL 92 GM TUBE TOP PRN (07:30)
[2020-10-24] MEDS: NYSTATIN POWDER 15 GM TOP SCH ×2 (07:30→18:27)
[2020-10-24] MEDS: INSULIN ASPART 300 UNIT/3 ML PEN SUBQ SCH ×7 (08:09→21:37)
[2020-10-24] MEDS: MAGNESIUM OXIDE 400 MG TABLET PO SCH (08:10)
[2020-10-24] MEDS: DOCUSATE SODIUM 250 MG CAPSULE PO SCH (08:10)
[2020-10-24] MEDS: LACTOBACILLUS RHAMNOSUS GG CAPSULE PO SCH (08:10)
[2020-10-24] MEDS: NICOTINE 14 MG PATCH TOP SCH (08:10)
[2020-10-24] MEDS: MULTIVITAMIN W/MINERALS TABLET PO SCH (08:10)
[2020-10-24] MEDS: THIAMINE 100 MG TABLET PO SCH (08:10)
[2020-10-24] MEDS: SENNA 8.6 MG TABLET PO SCH (08:10)
[2020-10-24] MEDS: polyethylene glycoL 3350 17 GM PACKET PO SCH (08:10)
[2020-10-24] MEDS: ASPIRIN EC 81 MG TABLET PO SCH (08:10)
[2020-10-24] MEDS: SODIUM CHLORIDE FLUSH 0.9% 10 ML SYRINGE IVP SCH ×2 (08:11→17:11)
[2020-10-24] MEDS: ENOXAPARIN 40 MG/0.4 ML SYRINGE SUBQ SCH (08:11)
[2020-10-24] MEDS: BENZOCAINE/MENTHOL LOZENGE MM PRN ×3 (17:13→21:37)
--- NOTE | 2020-10-24 19:40 | PROVIDER PROGRESS NOTE ---
Subjective - Prog Note Date Prog Note Date: 10/24/20 Prog Note Time: 08:00 (late entry; seen early this morning) - Subjective Pt reports feeling: Improved (feels pretty good today, no complaints) Current Medications - Current Medications Current Medications: Active Medications Generic Name Dose Route Start Last Admin Trade Name Freq PRN Reason Stop Dose Admin Acetaminophen 500 mg 10/12/20 17:08 10/24/20 18:57 Acetaminophen 500 Mg Tablet PO 500 mg Q4HR PRN Administration Pain or Fever > 38C (100.4F) Albuterol/Ipratropium 3 ml 10/11/20 19:29 10/24/20 01:59 Ipratropium/Albuterol 3 Ml Neb INH 3 ml RTQID PRN Administration Shortness of Air/Wheezing Aspirin 81 mg 10/18/20 09:00 10/24/20 08:10 Aspirin Ec 81 Mg Tablet PO 81 mg DAILY RODOLFO Administration Atorvastatin Calcium 40 mg 10/17/20 21:00 10/23/20 20:02 Atorvastatin 40 Mg Tablet PO 40 mg QPM RODOLFO Administration Calcium Carbonate/Glycine 500 mg 10/20/20 14:56 10/22/20 08:52 Calcium Carbonate Chew 500 Mg Tablet PO 500 mg BID PRN Administration Heartburn Docusate Sodium 250 - 500 mg 10/16/20 09:00 10/24/20 08:10 Docusate Sodium 250 Mg Capsule PO 250 mg DAILY RODLOFO Administration Enoxaparin Sodium 40 mg 10/11/20 09:00 10/24/20 08:11 Enoxaparin 40 Mg/0.4 Ml Syringe SUBQ 40 mg DAILY RODOLFO Administration Insulin Aspart 1 - 9 unit 10/18/20 21:00 10/24/20 17:11 Insulin Aspart 300 Unit/3 Ml Pen SUBQ 1 unit 0800,1200,1700,2100 RODOLFO Administration Protocol Insulin Aspart 4 unit 10/19/20 08:00 10/24/20 17:11 Insulin Aspart 300 Unit/3 Ml Pen SUBQ 4 unit TIDWM RODOLFO Administration Insulin Glargine 17 unit 10/19/20 21:00 10/23/20 20:22 Insulin Glargine 300 Unit/3 Ml Pen SUBQ 17 unit QPM RODOLFO Administration Lactobacillus Rhamnosus 1 cap 10/15/20 10:00 10/24/20 08:10 Lactobacillus Rhamnosus Gg Capsule PO 1 cap DAILY RODOLFO Administration Magnesium Oxide 400 mg 10/16/20 08:00 10/24/20 08:10 Magnesium Oxide 400 Mg Tablet PO 400 mg DAILYWM RODOLFO Administration Mineral Oil 1 applic 10/11/20 09:49 10/24/20 07:30 Min Oil/Dimethicon/Coconut Oil 92 Gm Tube TOP 1 applic PRN PRN Administration Skin Care Multi-Ingredient Ointment 1 applic 10/11/20 09:49 10/23/20 20:03 Zinc Oxide 20% Oint 30 Gm Tube TOP 1 applic PRN PRN Administration Skin Care Multivitamins/Minerals 1 tab 10/13/20 17:00 10/24/20 08:10 Multivitamin W/Minerals Tablet PO 1 tab DAILYWM RODOLFO Administration Nicotine 1 patch 10/11/20 09:00 10/24/20 08:10 Nicotine 14 Mg Patch TOP 1 patch DAILY RODOLFO Administration Nystatin 0 applic 10/11/20 21:00 10/24/20 18:27 Nystatin Powder 15 Gm TOP 1 applic BID RODOLFO Administration Polyethylene Glycol 17 gm 10/15/20 10:00 10/24/20 08:10 Polyethylene Glycol 3350 17 Gm Packet PO 17 gm DAILY RODOLFO Administration Senna 8.6 - 17.2 mg 10/16/20 09:00 10/24/20 08:10 Senna 8.6 Mg Tablet PO 8.6 mg DAILY RODOLFO Administration Sodium Chloride 10 ml 10/10/20 15:00 10/21/20 11:03 Sodium Chloride Flush 0.9% 10 Ml Syringe IVP 10 ml PRN PRN Administration NEEDED PER PROVIDER ORDERS Sodium Chloride 10 ml 10/10/20 17:00 10/24/20 17:11 Sodium Chloride Flush 0.9% 10 Ml Syringe IVP 10 ml 0100,0900,1700 RODOLFO Administration Thiamine HCl 100 mg 10/15/20 09:00 10/24/20 08:10 Thiamine 100 Mg Tablet PO 100 mg DAILY RODOLFO Administration Throat Lozenges 1 lozenge 10/20/20 03:59 10/24/20 19:13 Benzocaine/Menthol Lozenge MM 1 lozenge Q2HR PRN Administration Throat pain Albuterol Sulf [Ventolin Hfa Inhaler] 2 puffs PO Q4H PRN 10/10/20 Budesonide/Formoterol Fumarate [Symbicort 160-4.5 Mcg Inhaler] 1 inh PO BID 10/10/20 Sertraline [Zoloft] 25 mg PO DAILY 10/10/20 Zolpidem Tartrate [Ambien] 10 mg PO QPM PRN 10/10/20 Objective - Vital Signs/Intake & Output Reviewed Vital Signs: Yes Vital Signs: Vital Signs x48h Temp Pulse Resp BP Pulse Ox 10/24/20 17:10 37.0 C 104 H 20 124/78 91 L Intake & Output: Intake & Output 10/21/20 10/22/20 10/23/20 10/24/20 23:59 23:59 23:59 23:59 Intake Total 1850 2360 1222 890 Output Total 4400 1050 Balance -2550 2360 172 890 - Objective General Appearance: positive: No acute distress, Alert, Other (enjoying chocolate ice cream as 'dessert" for his breakfast, relaxed) Eyes Bilateral: positive: Normal inspection, EOMI (eyes track evenly) Respiratory: positive: Chest non-tender, No respiratory distress. negative: Breath sounds nml (distant breath sounds but no adventitious, clears upper airway coarseness by coughing. Satting 96 % on 2L, I reduced to 1 L, still over 90%) Cardiovascular: positive: Regular rate & rhythm, No murmur (distant heart sounds) Abdomen: positive: Nml bowel sounds, No distention, Other (generous abdomen). negative: Tenderness Skin: positive: Warm, Dry, Other (buttock not viewed today , L heel wound dressed, R heel decub nearly resolved). negative: Skin rash Extremities: positive: Other (NO pretibial or pedal edema, (was grossly edematous on admit), still even a bit wrinkled, warm pink, some dry flaking from when was edematous). negative: Pedal edema Neurologic/Psychiatric: positive: Oriented x3 (not to situation) - Lab Results Fish Bones: 10/22/20 05:36 10/24/20 05:59 Other Labs: Lab Results x24hrs 10/24/20 10/24/20 10/24/20 Range/Units 16:37 11:43 07:19 Sodium (135-145) mmol/L Potassium (3.5-5.0) mmol/L Chloride (101-111) mmol/L Carbon Dioxide (21-32) mmol/L Anion Gap (6-13) BUN (6-20) mg/dL Creatinine (0.6-1.2) mg/dL Estimated GFR (MDRD) (>89) Glucose (70-100) mg/dL POC Whole Bld Glucose 179 H 162 H 156 H (70 - 100) mg/dL Calcium (8.5-10.3) mg/dL 10/24/20 10/23/20 Range/Units 05:59 20:20 Sodium 136 (135-145) mmol/L Potassium 4.6 (3.5-5.0) mmol/L Chloride 93 L (101-111) mmol/L Carbon Dioxide 33 H (21-32) mmol/L Anion Gap 10.0 (6-13) BUN 20 (6-20) mg/dL Creatinine 0.6 (0.6-1.2) mg/dL Estimated GFR (MDRD) 132 (>89) Glucose 194 H (70-100) mg/dL POC Whole Bld Glucose 169 H (70 - 100) mg/dL Calcium 8.8 (8.5-10.3) mg/dL Sepsis Event Note (H) - Evaluation Current Stage of Sepsis: Resolved Possible source of Sepsis: positive: Pulmonary, Wound - Sepsis Criteria Sepsis Criteria: Recorded Temperature greater than 38.3C or Less than 36C, Recorded Heart Rate greater than 90 bpm, Recorded Respiratory Rate greater than 20 (as above, the hypothermia, HR, and RR could be due to extreme volume de pletion) Assessment/Plan - Problem List (1) Acute respiratory failure with hypoxia Impression: REsolved Developed hypoxia/oxygen requirement on 10/15 after multiple days IVF for extreme volume depletion on admit Echo showed normal EF but also pulm HTN, Echo 10/15 Nl LV size an fxn EF 65-70%, Moderately dilated RV w/ reduced systolic fxn severely dilated RA, mildly dilated LA, Mod TR, RVSP 74 mmHg; (Much of his BNP is from R side/PHTN) Had several days IV lasix, then changed to PO w/ contraction alkalosis (resolvi ng/see below) Holding Lasix as of 10/21 given the known reduced RV fxn, I/O uninterpretible w/ incontinence but weight down Had considered 10/21 weight dry weight 109 kg BUT is now 104 kg>>101kg on 9/10 May need prn lasix dosing (but doesnt at this point) No signs of volume overload since stopping lasix . No pretibial or pedal edema (is even a bit wrinkled); He was grossly edematous on admit I/O not accurate w/ incontinence continue low salt diet Fluid restriction was d/c'd Consider prn lasix on d/c if LE edema returns (w/ controlled diet in monitored setting may not be an issue) (2) Acute congestive heart failure/ Volume overload; HFpEF may be preload dependent w/ RV dysfxn RESOLVED Acute decompensation resolved related to volume overload w/ IVF since admit as p er #1 Normal EF, blood pressure controlled on no meds above, evaluate volume status daily, consider if/when needs lasix )possibly M/W/F ; resluted i acute hypoxemic resp failure on w/ IVF Required increased oxygen; now back to home flow (uses 02 at home but does not appear necessary) low sodium diet (he likes dysphagia pureed) will readd lasix if needed (3) Uncontrolled diabetes mellitus with hyperglycemia Much improved on current regimen/Uncontrolled on admit due to uncontrolled diet (taking 12 packs of sugar cola per son) and ? if was taking metformin A1C on admission was >14%. Is in the 140-180 range PLAN continue w/ current lantus 17 pm (on 17 units since 10/19 ), 4 unit prandial, + correctional (4) Cognitive impairment/metabolic encephalopathy at admit Resolved/ Marked improvement since I admitted him on 10/10 and lexy at baseline. (#) Peripheral vascular disease On presentation (acidotic) feet were cold/ very clamped down peripherally Now feet are warm, pink, + pulses/ Continue ASA and statin, no urgent need for vascular intervention / can consider as outpatient if worsens 10/17 evidently there was some concern for PVD and was evaluated LE duplex due to diminished pedal pulses; R SFA: mild to moderate diffuse right SFA disease without focal hemodynamically significant stenosis. LLE runoff significant for suggestive of possible significant SFA stenosis. There is also monophasic low distrance flow the distal runoff vessels suggesting more proximal senosis. (#) Metabolic alkalosis REsolving; contraction alkalosis to bicarb of 43 on 10/20 w/ vigorous thiazide diuresis w/ volume overload. Improving 36 10/22 and 10/23; now 33 (lasix stopped 10/21 as above/ RV dysfxn and pHtn contribute to the BNP KNown COPD, but on prior admits bicarb 26 arguing against chronic hypercapnia; (likely did have hypoventilatory hypercapnia on admission when was nearly obtunded) As above; lasix on hold, expect bicarb will return to his baseline as he returns to euvolemia (7) Hyperkalemia Has had K ~ 5 since admit; stable 5.2, 5.1, 5.1, 5.3, 5.2>> 4.9>>4.6 today TWO days after stopping lasix (WAS intially acidotic, may have reflected H/K shifts) ( Peristent K > 5 even reflect thiazide diuresis Unexpectedly, after stopping diuresis K normal (8) Acute kidney injury / prerenal on admit (due to extreme volume depletion) Resolved Was extremely intravascularly volume deplete on admission (#) Community acquired bacterial pneumonia/ suspected as possible cause of admission state Resolved. He has completed treatment with antibiotics. (#) Self-care deficit Social work still exploring options for placement All have declined so far Medically stable for discharge (He presented with evidence of self-neglect given multiple areas of skin breakdown and elevated BGs (report he does not check his BGs at home). There have been multiple APS reports made in the past. 11) Buttock and heel decubitis present on admissin due to prolonged time in chair Decubitis much improved w/ nursing care, and offloading (4) Uncontrolled diabetes mellitus with hyperglycemia Qualifiers: Diabetes mellitus type: type 2 Qualified Code(s): E11.65 - Type 2 diabetes mellitus with hyperglycemia
[2020-10-24] MEDS: INSULIN GLARGINE 300 UNIT/3 ML PEN SUBQ SCH (21:36)
[2020-10-24] MEDS: ATORVASTATIN 40 MG TABLET PO SCH (21:37)
[2020-10-25] MEDS: SODIUM CHLORIDE FLUSH 0.9% 10 ML SYRINGE IVP SCH ×3 (00:58→17:38)
[2020-10-25] MEDS: BENZOCAINE/MENTHOL LOZENGE MM PRN (03:24)
[2020-10-25] MEDS: ACETAMINOPHEN 500 MG TABLET PO PRN ×2 (04:41→10:12)
[2020-10-25] MEDS: INSULIN ASPART 300 UNIT/3 ML PEN SUBQ SCH ×7 (07:51→20:59)
[2020-10-25] MEDS: SENNA 8.6 MG TABLET PO SCH (08:11)
[2020-10-25] MEDS: DOCUSATE SODIUM 250 MG CAPSULE PO SCH (08:11)
[2020-10-25] MEDS: ASPIRIN EC 81 MG TABLET PO SCH (08:11)
[2020-10-25] MEDS: THIAMINE 100 MG TABLET PO SCH (08:11)
[2020-10-25] MEDS: ENOXAPARIN 40 MG/0.4 ML SYRINGE SUBQ SCH (08:11)
[2020-10-25] MEDS: LACTOBACILLUS RHAMNOSUS GG CAPSULE PO SCH (08:11)
[2020-10-25] MEDS: MAGNESIUM OXIDE 400 MG TABLET PO SCH (08:11)
[2020-10-25] MEDS: MULTIVITAMIN W/MINERALS TABLET PO SCH (08:11)
[2020-10-25] MEDS: NICOTINE 14 MG PATCH TOP SCH (08:12)
[2020-10-25] MEDS: polyethylene glycoL 3350 17 GM PACKET PO SCH (08:12)
[2020-10-25] MEDS: NYSTATIN POWDER 15 GM TOP SCH ×2 (08:12→20:59)
[2020-10-25] MEDS: MIN OIL/DIMETHICON/COCONUT OIL 92 GM TUBE TOP PRN (08:54)
[2020-10-25] MEDS: ZINC OXIDE 20% OINT 30 GM TUBE TOP PRN (08:54)
[2020-10-25] MEDS: LIDOCAINE PATCH 5% TOP PRN (10:54)
--- NOTE | 2020-10-25 17:48 | PROVIDER PROGRESS NOTE ---
Assessment/Plan - Problem List (1) Weakness Assessment/Plan: He is severely deconditioned from not getting out of his chair at home for 1 month, (he only allowed caregivers to give him spong baths and only of his front) and from this 2-week hospitalization. He is needing placement in a SNF then a fpc. He is working with PT and cooperating. (2) COPD He is not ion exacerbation Inhalers are ordered as needed (3) Pulm HTN Developed hypoxia and oxygen needed on 10/15 after multiple days of IVF for extreme volume depletion on admission. Echo showed normal EF but also Moderately dilated RV w/ reduced RV systolic fxn, severely dilated RA, mildly dilated LA, Mod TR, RVSP 74 mmHg; pulm HTN. He uses 02 at home Continue low salt diet Fluid restriction was d/c'd Consider prn lasix on d/ch if leg edema returns (4) RV dysfxn Echo showed normal EF but also Moderately dilated RV w/ reduced RV systolic fxn, severely dilated RA, mildly dilated LA, Mod TR, RVSP 74 mmHg; pulm HTN. Acute decompensation resolved with diuresis and was related to volume overload w/ IVF. He is a smoker, which may be the cause of #3 and #4. He is on Nicotine patches, being weaned to off l (5) Uncontrolled diabetes mellitus with hyperglycemia Much improved on current regimen. It was uncontrolled on admit due to un controlled diet (taking 12 packs of sugar cola per son) and ? if was even taking his metformin A1C on admission was >14%. Glu now in the 140-180 range Continue w/ current lantus and prandial, + correctional ss Insulin (6)Chronic heart failure with preserved ejection fraction As per Echo (7) Peripheral vascular disease On presentation his feet were cold/ very clamped down peripherally. LE duplex due to diminished pedal pulses;R SFA: mild to moderate diffuse right SFA disease without focal hemodynamically significant stenosis. LLE runoff sig nificant for suggestive of possible significant SFA stenosis. There is also monophasic low distrance flow the distal runoff vessels suggesting more proximal stenosis. Now feet are warm, pink, has pulses. Continue ASA and statin, no urgent need for vascular intervention / can consider as outpatient if worsens (8) sacral decubitus ulcer and heel decubitis This was present on admissin due to prolonged time in chair Decubitis much improved w/ nursing care, and offloading (9) Self-care deficit He presented with evidence of self-neglect given multiple areas of skin breakdown and elevated glu and A1c >14, he reported he dis not check his fi gersticks at home. APS report was made. Social work still exploring options for placement, as he is medically stable for discharge (10) Cognitive impairment Poor memory persists but has improvement since admission, and this is likely his baseline. - Current Meds Current Meds: Current Medications Generic Name Dose Route Start Last Admin Trade Name Freq PRN Reason Stop Dose Admin Acetaminophen 500 mg 10/12/20 17:08 10/25/20 10:12 Acetaminophen 500 Mg Tablet PO 500 mg Q4HR PRN Administration Pain or Fever > 38C (100.4F) Albuterol/Ipratropium 3 ml 10/11/20 19:29 10/24/20 01:59 Ipratropium/Albuterol 3 Ml Neb INH 3 ml RTQID PRN Administration Shortness of Air/Wheezing Aspirin 81 mg 10/18/20 09:00 10/25/20 08:11 Aspirin Ec 81 Mg Tablet PO 81 mg DAILY RODOLFO Administration Atorvastatin Calcium 40 mg 10/17/20 21:00 10/24/20 21:37 Atorvastatin 40 Mg Tablet PO 40 mg QPM RODOLFO Administration Calcium Carbonate/Glycine 500 mg 10/20/20 14:56 10/22/20 08:52 Calcium Carbonate Chew 500 Mg Tablet PO 500 mg BID PRN Administration Heartburn Docusate Sodium 250 - 500 mg 10/16/20 09:00 10/25/20 08:11 Docusate Sodium 250 Mg Capsule PO 250 mg DAILY RODOLFO Administration Enoxaparin Sodium 40 mg 10/11/20 09:00 10/25/20 08:11 Enoxaparin 40 Mg/0.4 Ml Syringe SUBQ 40 mg DAILY RODOLFO Administration Insulin Aspart 1 - 9 unit 10/18/20 21:00 10/25/20 16:41 Insulin Aspart 300 Unit/3 Ml Pen SUBQ Not Given 0800,1200,1700,2100 [facility] Protocol Insulin Aspart 4 unit 10/19/20 08:00 10/25/20 17:37 Insulin Aspart 300 Unit/3 Ml Pen SUBQ 4 unit TIDWM RODOLFO Administration Insulin Glargine 17 unit 10/19/20 21:00 10/24/20 21:36 Insulin Glargine 300 Unit/3 Ml Pen SUBQ 17 unit QPM RODOLFO Administration Lactobacillus Rhamnosus 1 cap 10/15/20 10:00 10/25/20 08:11 Lactobacillus Rhamnosus Gg Capsule PO 1 cap DAILY RODOLFO Administration Lidocaine 1 patch 10/25/20 10:31 10/25/20 10:54 Lidocaine Patch 5% TOP 1 patch DAILY PRN Administration PAIN Magnesium Oxide 400 mg 10/16/20 08:00 10/25/20 08:11 Magnesium Oxide 400 Mg Tablet PO 400 mg DAILYWM RODOLFO Administration Mineral Oil 1 applic 10/11/20 09:49 10/25/20 08:54 Min Oil/Dimethicon/Coconut Oil 92 Gm Tube TOP 1 applic PRN PRN Administration Skin Care Multi-Ingredient Ointment 1 applic 10/11/20 09:49 10/25/20 08:54 Zinc Oxide 20% Oint 30 Gm Tube TOP 1 applic PRN PRN Administration Skin Care Multivitamins/Minerals 1 tab 10/13/20 17:00 10/25/20 08:11 Multivitamin W/Minerals Tablet PO 1 tab DAILYWM RODOLFO Administration Nicotine 1 patch 10/11/20 09:00 10/25/20 08:12 Nicotine 14 Mg Patch TOP 1 patch DAILY RODOLFO Administration Nystatin 0 applic 10/11/20 21:00 10/25/20 08:12 Nystatin Powder 15 Gm TOP 1 applic BID RODOLFO Administration Polyethylene Glycol 17 gm 10/15/20 10:00 10/25/20 08:12 Polyethylene Glycol 3350 17 Gm Packet PO 17 gm DAILY RODOLFO Administration Senna 8.6 - 17.2 mg 10/16/20 09:00 10/25/20 08:11 Senna 8.6 Mg Tablet PO 8.6 mg DAILY RODOLFO Administration Sodium Chloride 10 ml 10/10/20 15:00 10/21/20 11:03 Sodium Chloride Flush 0.9% 10 Ml Syringe IVP 10 ml PRN PRN Administration NEEDED PER PROVIDER ORDERS Sodium Chloride 10 ml 10/10/20 17:00 10/25/20 17:38 Sodium Chloride Flush 0.9% 10 Ml Syringe IVP 10 ml 0100,0900,1700 RODOLFO Administration Thiamine HCl 100 mg 10/15/20 09:00 10/25/20 08:11 Thiamine 100 Mg Tablet PO 100 mg DAILY RODOLFO Administration Throat Lozenges 1 lozenge 10/20/20 03:59 10/25/20 03:24 Benzocaine/Menthol Lozenge MM 1 lozenge Q2HR PRN Administration Throat pain - Lab Result Fish Bone Diagrams: 10/22/20 05:36 10/24/20 05:59 - Additional Planning My Orders: My Active Orders 10/25/20 10:31 Lidocaine Patch 5% [Lidoderm Patch] 1 patch TOP DAILY PRN Subjective - Subjective Patient Reports: No Complaints Nursing Reports: Other (Still has only stood OOB, no walking yet) Objective Vital Signs: Vital Signs - 24 hr 10/24/20 10/25/20 10/25/20 21:00 00:22 00:55 Temperature 36.4 C L Heart Rate 86 Heart Rate [ 98 Brachial] Respiratory 20 21 Rate Blood Pressure 110/66 [Right Brachial artery] O2 Saturation 90 L 93 10/25/20 10/25/20 10/25/20 07:43 11:15 15:37 Temperature 36.4 C L 36.5 C Heart Rate 92 Heart Rate [ 63 94 Brachial] Respiratory 17 18 24 Rate Blood Pressure 126/71 110/77 [Right Brachial artery] O2 Saturation 97 96 Oxygen O2 Source Nasal cannula I&O (Last 24 Hrs): Intake and Output Totals x24h 10/23/20 10/24/20 10/25/20 23:59 23:59 23:59 Intake Total 1222 1740 940 Output Total 1050 Balance 172 1740 940 General: Alert HEENT: Mucous membr. moist/pink Neck: Supple, No JVD Neuro: Alert, Non Focal, Other (Poor memory) Cardiovascular: Regular rate, No murmurs Respiratory: No respiratory distress, Breath sounds nml Abdomen: Normal bowel sounds, Soft, Other (Obese with pannus) Extremities: Other (1+ edema, shins are bandaged, heels have bandaides covering eschars) - Results Results: Laboratory Results WBC 10.9 x10^3/uL (4.8-10.8) H 10/22/20 05:36 RBC 4.91 10^6/uL (4.70-6.10) 10/22/20 05:36 Hgb 13.5 g/dL (14.0-18.0) L 10/22/20 05:36 Hct 45.6 % (42.0-52.0) 10/22/20 05:36 MCV 92.9 fL (80.0-94.0) 10/22/20 05:36 MCH 27.5 pg (27.0-31.0) 10/22/20 05:36 MCHC 29.6 g/dL (32.0-36.0) L 10/22/20 05:36 RDW 14.3 % (12.0-15.0) 10/22/20 05:36 Plt Count 260 10^3/uL (130-450) 10/22/20 05:36 MPV 10.1 fL (7.4-11.4) 10/22/20 05:36 Neut # (Auto) 7.6 10^3/uL (1.5-6.6) H 10/22/20 05:36 Lymph # (Auto) 2.1 10^3/uL (1.5-3.5) 10/22/20 05:36 [place] # (Auto) 0.9 10^3/uL (0.0-1.0) 10/22/20 05:36 Eos # (Auto) 0.2 10^3/uL (0.0-0.7) 10/22/20 05:36 Baso # (Auto) 0.1 10^3/uL (0.0-0.1) 10/22/20 05:36 Absolute Nucleated RBC 0.00 x10^3/uL 10/22/20 05:36 Nucleated RBC % 0.0 /100WBC 10/22/20 05:36 PT 14.7 secs (9.9-12.6) H 10/10/20 12:32 INR 1.3 (0.8-1.2) H 10/10/20 12:32 VBG pH 7.219 (7.31-7.41) L 10/10/20 12:32 VBG pCO2 63.7 mmHg (41-51) H 10/10/20 12:32 VBG pO2 28.7 mmHg (25-47) 10/10/20 12:32 VBG HCO3 25.4 mmol/L (23-28) 10/10/20 12:32 VBG Total CO2 27.4 mmol/L (24-29) 10/10/20 12:32 VBG O2 Saturation 45.4 % (60-80) L 10/10/20 12:32 VBG Base Excess -4.3 mmol/L (-2 - +2) L 10/10/20 12:32 Sodium 136 mmol/L (135-145) 10/24/20 05:59 Potassium 4.6 mmol/L (3.5-5.0) 10/24/20 05:59 Chloride 93 mmol/L (101-111) L 10/24/20 05:59 Carbon Dioxide 33 mmol/L (21-32) H 10/24/20 05:59 Anion Gap 10.0 (6-13) 10/24/20 05:59 BUN 20 mg/dL (6-20) 10/24/20 05:59 Creatinine 0.6 mg/dL (0.6-1.2) 10/24/20 05:59 Estimated GFR (MDRD) 132 (>89) 10/24/20 05:59 Glucose 194 mg/dL (70-100) H 10/24/20 05:59 POC Whole Bld Glucose 112 mg/dL (70 - 100) H 10/25/20 16:25 Estimat Average Glucose 358 mg/dL (70-100) H 10/10/20 12:32 Hemoglobin A1c % 14.1 % (4.27-6.07) H 10/10/20 12:32 Lactic Acid 1.9 mmol/L (0.5-2.2) 10/10/20 19:23 Calcium 8.8 mg/dL (8.5-10.3) 10/24/20 05:59 Phosphorus 5.5 mg/dL (2.5-4.6) H 10/10/20 12:32 Magnesium 1.7 mg/dL (1.7-2.8) 10/19/20 05:59 Total Bilirubin 0.6 mg/dL (0.2-1.0) 10/22/20 05:36 AST 25 IU/L (10-42) 10/22/20 05:36 ALT 28 IU/L (10-60) 10/22/20 05:36 Alkaline Phosphatase 174 IU/L (42-121) H 10/22/20 05:36 Ammonia 24.2 umol/L (7-35) 10/15/20 08:32 Total Creatine Kinase 557 IU/L (22-269) H 10/11/20 04:59 Troponin I High Sens 69.0 ng/L (2.3-19.7) H* 10/15/20 01:25 B-Natriuretic Peptide 260 pg/mL (5-100) H 10/20/20 04:50 Total Protein 5.9 g/dL (6.7-8.2) L 10/22/20 05:36 Albumin 2.7 g/dL (3.2-5.5) L 10/22/20 05:36 Globulin 3.2 g/dL (2.1-4.2) 10/22/20 05:36 Albumin/Globulin Ratio 0.8 (1.0-2.2) L 10/22/20 05:36 Lipase 53 U/L (22-51) H 10/10/20 12:32 TSH 2.75 uIU/mL (0.34-5.60) 10/13/20 05:27 Nasal Adenovirus (PCR) NOT DETECTED 10/10/20 13:05 Nasal B. parapertussis DNA (PCR) NOT DETECTED 10/10/20 13:05 Nasal Coronavir 229E PCR NOT DETECTED 10/10/20 13:05 Nasal Coronavir HKU1 PCR NOT DETECTED 10/10/20 13:05 Nasal Coronavir NL63 PCR NOT DETECTED 10/10/20 13:05 Nasal Coronavir OC43 PCR NOT DETECTED 10/10/20 13:05 Nasal Enterovir/Rhinovir PCR NOT DETECTED 10/10/20 13:05 Nasal Influenza B PCR NOT DETECTED 10/10/20 13:05 Nasal Influenza A PCR NOT DETECTED 10/10/20 13:05 Nasal Parainfluen 1 PCR NOT DETECTED 10/10/20 13:05 Nasal Parainfluen 2 PCR NOT DETECTED 10/10/20 13:05 Nasal Parainfluen 3 PCR NOT DETECTED 10/10/20 13:05 Nasal Parainfluen 4 PCR NOT DETECTED 10/10/20 13:05 Nasal RSV (PCR) NOT DETECTED 10/10/20 13:05 Nasal B.pertussis DNA PCR NOT DETECTED 10/10/20 13:05 Nasal C.pneumoniae (PCR) NOT DETECTED 10/10/20 13:05 [place] Human Metapneumo PCR NOT DETECTED 10/10/20 13:05 Nasal M.pneumoniae (PCR) NOT DETECTED 10/10/20 13:05 Nasal SARS-CoV-2 (PCR) NOT DETECTED 10/10/20 13:05 Urine Opiates Screen NEGATIVE (NEGATIVE) 10/10/20 22:50 Ur Oxycodone Screen NEGATIVE (NEGATIVE) 10/10/20 22:50 Urine Methadone Screen NEGATIVE (NEGATIVE) 10/10/20 22:50 Ur Propoxyphene Screen NEGATIVE (NEGATIVE) 10/10/20 22:50 Ur Barbiturates Screen NEGATIVE (NEGATIVE) 10/10/20 22:50 Ur Tricyclics Screen NEGATIVE (NEGATIVE) 10/10/20 22:50 Ur Phencyclidine Scrn NEGATIVE (NEGATIVE) 10/10/20 22:50 Ur Amphetamine Screen NEGATIVE (NEGATIVE) 10/10/20 22:50 U Methamphetamines Scrn NEGATIVE (NEGATIVE) 10/10/20 22:50 U Benzodiazepines Scrn NEGATIVE (NEGATIVE) 10/10/20 22:50 Urine Cocaine Screen NEGATIVE (NEGATIVE) 10/10/20 22:50 U Cannabinoids Screen NEGATIVE (NEGATIVE) 10/10/20 22:50 Ethyl Alcohol < 5.0 mg/dL 10/10/20 12:32 Sepsis Event Note (H) - Evaluation Current Stage of Sepsis: Resolved Possible source of Sepsis: positive: Pulmonary, Wound - Sepsis Criteria Sepsis Criteria: Recorded Temperature greater than 38.3C or Less than 36C, Recorded Heart Rate greater than 90 bpm, Recorded Respiratory Rate greater than 20 (as above, the hypothermia, HR, and RR could be due to extreme volume depletion)
[2020-10-25] MEDS: ATORVASTATIN 40 MG TABLET PO SCH (20:57)
[2020-10-25] MEDS: INSULIN GLARGINE 300 UNIT/3 ML PEN SUBQ SCH (20:58)
[2020-10-26] MEDS: SODIUM CHLORIDE FLUSH 0.9% 10 ML SYRINGE IVP SCH ×3 (01:45→17:08)
[2020-10-26] MEDS: DOCUSATE SODIUM 250 MG CAPSULE PO SCH (07:20)
[2020-10-26] MEDS: polyethylene glycoL 3350 17 GM PACKET PO SCH (07:20)
[2020-10-26] MEDS: SENNA 8.6 MG TABLET PO SCH (07:20)
[2020-10-26] MEDS: INSULIN ASPART 300 UNIT/3 ML PEN SUBQ SCH ×7 (07:57→21:02)
[2020-10-26] MEDS: NICOTINE 14 MG PATCH TOP SCH (08:14)
[2020-10-26] MEDS: ENOXAPARIN 40 MG/0.4 ML SYRINGE SUBQ SCH (08:14)
[2020-10-26] MEDS: MULTIVITAMIN W/MINERALS TABLET PO SCH (08:15)
[2020-10-26] MEDS: MAGNESIUM OXIDE 400 MG TABLET PO SCH (08:15)
[2020-10-26] MEDS: ASPIRIN EC 81 MG TABLET PO SCH (08:15)
[2020-10-26] MEDS: NYSTATIN POWDER 15 GM TOP SCH ×2 (08:15→21:03)
[2020-10-26] MEDS: LACTOBACILLUS RHAMNOSUS GG CAPSULE PO SCH (08:15)
[2020-10-26] MEDS: CALCIUM CARBONATE CHEW 500 MG TABLET PO PRN (08:15)
[2020-10-26] MEDS: THIAMINE 100 MG TABLET PO SCH (08:15)
[2020-10-26] MEDS: LIDOCAINE PATCH 5% TOP PRN (10:08)
[2020-10-26] MEDS: MIN OIL/DIMETHICON/COCONUT OIL 92 GM TUBE TOP PRN (10:11)
[2020-10-26] MEDS: ZINC OXIDE 20% OINT 30 GM TUBE TOP PRN (10:11)
--- NOTE | 2020-10-26 16:38 | PROVIDER PROGRESS NOTE ---
Assessment/Plan - Problem List (1) Weakness Assessment/Plan: He is severely deconditioned from not getting out of his chair at home for 1 month, (he only allowed caregivers to give him sponge baths and only of his front) and deconditioned from this 2-week hospitalization. He is needing placement in a SNF for PT rehab and then a [facility]. He is working with PT and cooperating. Today he took 3-4 steps. (2) COPD He is not ion exacerbation Inhalers are ordered as needed (3) Pulm HTN Developed hypoxia and oxygen needed on 10/15 after multiple days of IVF for extreme volume depletion on admission. Echo showed normal EF but also Moderately dilated RV w/ reduced RV systolic fxn, severely dilated RA, mildly dilated LA, Mod TR, RVSP 74 mmHg; pulm HTN. He uses 02 at home Continue low salt diet Fluid restriction was d/c'd Consider prn lasix on d/ch if leg edema returns (4) RV dysfxn Echo showed normal EF but also Moderately dilated RV w/ reduced RV systolic fxn, severely dilated RA, mildly dilated LA, Mod TR, RVSP 74 mmHg; pulm HTN. Acute decompensation resolved with diuresis and was related to volume overload w/ IVF. He is a smoker, which may be the cause of #3 and #4. He is on Nicotine patches, being weaned to off l (5) Uncontrolled diabetes mellitus with hyperglycemia Much improved on current regimen. It was uncontrolled on admit due to uncontrolled diet (taking 12 packs of sugar cola per son) and ? if was even taking his metformin A1C on admission was >14%. Glu now in the 140-180 range Continue w/ current lantus and prandial, + correctional ss Insulin (6)Chronic heart failure with preserved ejection fraction As per Echo (7) Peripheral vascular disease On presentation his feet were cold/ very clamped down peripherally. LE duplex due to diminished pedal pulses;R SFA: mild to moderate diffuse right SFA disease without focal hemodynamically significant stenosis. LLE runoff significant for suggestive of possible significant SFA stenosis. There is also monophasic low distrance flow the distal runoff vessels suggesting more proximal stenosis. Now feet are warm, pink, has pulses. Continue ASA and statin, no urgent need for vascular intervention / can consider as outpatient if worsens (8) sacral decubitus ulcer and heel decubitis This was present on admissin due to prolonged time in chair Decubitis much improved w/ nursing care, and offloading (9) Self-care deficit He presented with evidence of self-neglect given multiple areas of skin breakdown, maggots on his skin, elevated glu and A1c >14, he reported he did not check his figersticks at home. APS report was made. Syl Pacheco with Adult Protective Services was to interview the patient here last Tue10/24/20. Social work still exploring options for placement, as he is medically stable for discharge (10) Cognitive impairment Poor memory persists but has improvement since admission, and this is likely his baseline. - Current Meds Current Meds: Current Medications Generic Name Dose Route Start Last Admin Trade Name Freq PRN Reason Stop Dose Admin Acetaminophen 500 mg 10/12/20 17:08 10/25/20 10:12 Acetaminophen 500 Mg Tablet PO 500 mg Q4HR PRN Administration Pain or Fever > 38C (100.4F) Albuterol/Ipratropium 3 ml 10/11/20 19:29 10/24/20 01:59 Ipratropium/Albuterol 3 Ml Neb INH 3 ml RTQID PRN Administration Shortness of Air/Wheezing Aspirin 81 mg 10/18/20 09:00 10/26/20 08:15 Aspirin Ec 81 Mg Tablet PO 81 mg DAILY RODOLFO Administration Atorvastatin Calcium 40 mg 10/17/20 21:00 10/25/20 20:57 Atorvastatin 40 Mg Tablet PO 40 mg QPM RODOLFO Administration Calcium Carbonate/Glycine 500 mg 10/20/20 14:56 10/26/20 08:15 Calcium Carbonate Chew 500 Mg Tablet PO 500 mg BID PRN Administration Heartburn Docusate Sodium 250 - 500 mg 10/16/20 09:00 10/26/20 07:20 Docusate Sodium 250 Mg Capsule PO Not Given DAILY RODOLFO Enoxaparin Sodium 40 mg 10/11/20 09:00 10/26/20 08:14 Enoxaparin 40 Mg/0.4 Ml Syringe SUBQ 40 mg DAILY RODOLFO Administration Insulin Aspart 1 - 9 unit 10/18/20 21:00 10/26/20 11:23 Insulin Aspart 300 Unit/3 Ml Pen SUBQ Not Given 0800,1200,1700,2100 [facility] Protocol Insulin Aspart 4 unit 10/19/20 08:00 10/26/20 11:47 Insulin Aspart 300 Unit/3 Ml Pen SUBQ 4 unit TIDWM RODOLFO Administration Insulin Glargine 17 unit 10/19/20 21:00 10/25/20 20:58 Insulin Glargine 300 Unit/3 Ml Pen SUBQ 17 unit QPM RODOLFO Administration Lactobacillus Rhamnosus 1 cap 10/15/20 10:00 10/26/20 08:15 Lactobacillus Rhamnosus Gg Capsule PO 1 cap DAILY RODOLFO Administration Lidocaine 1 patch 10/25/20 10:31 10/26/20 10:08 Lidocaine Patch 5% TOP 1 patch DAILY PRN Administration PAIN Magnesium Oxide 400 mg 10/16/20 08:00 10/26/20 08:15 Magnesium Oxide 400 Mg Tablet PO 400 mg DAILYWM RODOLFO Administration Mineral Oil 1 applic 10/11/20 09:49 10/26/20 10:11 Min Oil/Dimethicon/Coconut Oil 92 Gm Tube TOP 1 applic PRN PRN Administration Skin Care Multi-Ingredient Ointment 1 applic 10/11/20 09:49 10/26/20 10:11 Zinc Oxide 20% Oint 30 Gm Tube TOP 1 applic PRN PRN Administration Skin Care Multivitamins/Minerals 1 tab 10/13/20 17:00 10/26/20 08:15 Multivitamin W/Minerals Tablet PO 1 tab DAILYWM RODOLFO Administration Nystatin 0 applic 10/11/20 21:00 10/26/20 08:15 Nystatin Powder 15 Gm TOP 1 applic BID RODOLFO Administration Polyethylene Glycol 17 gm 10/15/20 10:00 10/26/20 07:20 Polyethylene Glycol 3350 17 Gm Packet PO Not Given DAILY RODOLFO Senna 8.6 - 17.2 mg 10/16/20 09:00 10/26/20 07:20 Senna 8.6 Mg Tablet PO Not Given DAILY RODOLFO Sodium Chloride 10 ml 10/10/20 15:00 10/21/20 11:03 Sodium Chloride Flush 0.9% 10 Ml Syringe IVP 10 ml PRN PRN Administration NEEDED PER PROVIDER ORDERS Sodium Chloride 10 ml 10/10/20 17:00 10/26/20 08:15 Sodium Chloride Flush 0.9% 10 Ml Syringe IVP 10 ml 0100,0900,1700 RODOLFO Administration Thiamine HCl 100 mg 10/15/20 09:00 10/26/20 08:15 Thiamine 100 Mg Tablet PO 100 mg DAILY RODOLFO Administration Throat Lozenges 1 lozenge 10/20/20 03:59 10/25/20 03:24 Benzocaine/Menthol Lozenge MM 1 lozenge Q2HR PRN Administration Throat pain - Lab Result Fish Bone Diagrams: 10/22/20 05:36 10/24/20 05:59 - Additional Planning My Orders: My Active Orders 10/27/20 09:00 Nicotine 7 mg Patch [Nicoderm] 1 patch TOP DAILY Subjective - Subjective Patient Reports: No Complaints Nursing Reports: Other (He is working with PT and cooperating. Today he took 3-4 steps, these were his first steps in 3 mos.) Objective Vital Signs: Vital Signs - 24 hr 10/25/20 10/26/20 10/26/20 21:00 00:03 07:32 Temperature 36.4 C L 36.5 C Heart Rate 82 Heart Rate [ 96 91 Brachial] Respiratory 20 24 22 Rate Blood Pressure 119/80 [Left Brachial artery] Blood Pressure 116/79 [Right Brachial artery] O2 Saturation 92 98 10/26/20 13:21 Temperature 37.1 C Heart Rate Heart Rate [ 96 Brachial] Respiratory 24 Rate Blood Pressure 135/83 H [Left Brachial artery] Blood Pressure [Right Brachial artery] O2 Saturation 98 Oxygen O2 Source Nasal cannula I&O (Last 24 Hrs): Intake and Output Totals x24h 10/24/20 10/25/20 10/26/20 23:59 23:59 23:59 Intake Total 1740 1308 1360 Balance 1740 1308 1360 General: Alert, No acute distress HEENT: Atraumatic, Mucous membr. moist/pink Neck: Supple Neuro: Alert, Non Focal (Poor memory) Cardiovascular: Regular rate Respiratory: No respiratory distress Abdomen: Soft Extremities: Other (Shins bandaged, heels bandaged) - Results Results: Laboratory Results WBC 10.9 x10^3/uL (4.8-10.8) H 10/22/20 05:36 RBC 4.91 10^6/uL (4.70-6.10) 10/22/20 05:36 Hgb 13.5 g/dL (14.0-18.0) L 10/22/20 05:36 Hct 45.6 % (42.0-52.0) 10/22/20 05:36 MCV 92.9 fL (80.0-94.0) 10/22/20 05:36 MCH 27.5 pg (27.0-31.0) 10/22/20 05:36 MCHC 29.6 g/dL (32.0-36.0) L 10/22/20 05:36 RDW 14.3 % (12.0-15.0) 10/22/20 05:36 Plt Count 260 10^3/uL (130-450) 10/22/20 05:36 MPV 10.1 fL (7.4-11.4) 10/22/20 05:36 Neut # (Auto) 7.6 10^3/uL (1.5-6.6) H 10/22/20 05:36 Lymph # (Auto) 2.1 10^3/uL (1.5-3.5) 10/22/20 05:36 [place] # (Auto) 0.9 10^3/uL (0.0-1.0) 10/22/20 05:36 Eos # (Auto) 0.2 10^3/uL (0.0-0.7) 10/22/20 05:36 Baso # (Auto) 0.1 10^3/uL (0.0-0.1) 10/22/20 05:36 Absolute Nucleated RBC 0.00 x10^3/uL 10/22/20 05:36 Nucleated RBC % 0.0 /100WBC 10/22/20 05:36 PT 14.7 secs (9.9-12.6) H 10/10/20 12:32 INR 1.3 (0.8-1.2) H 10/10/20 12:32 VBG pH 7.219 (7.31-7.41) L 10/10/20 12:32 VBG pCO2 63.7 mmHg (41-51) H 10/10/20 12:32 VBG pO2 28.7 mmHg (25-47) 10/10/20 12:32 VBG HCO3 25.4 mmol/L (23-28) 10/10/20 12:32 VBG Total CO2 27.4 mmol/L (24-29) 10/10/20 12:32 VBG O2 Saturation 45.4 % (60-80) L 10/10/20 12:32 VBG Base Excess -4.3 mmol/L (-2 - +2) L 10/10/20 12:32 Sodium 136 mmol/L (135-145) 10/24/20 05:59 Potassium 4.6 mmol/L (3.5-5.0) 10/24/20 05:59 Chloride 93 mmol/L (101-111) L 10/24/20 05:59 Carbon Dioxide 33 mmol/L (21-32) H 10/24/20 05:59 Anion Gap 10.0 (6-13) 10/24/20 05:59 BUN 20 mg/dL (6-20) 10/24/20 05:59 Creatinine 0.6 mg/dL (0.6-1.2) 10/24/20 05:59 Estimated GFR (MDRD) 132 (>89) 10/24/20 05:59 Glucose 194 mg/dL (70-100) H 10/24/20 05:59 POC Whole Bld Glucose 126 mg/dL (70 - 100) H 10/26/20 11:21 Estimat Average Glucose 358 mg/dL (70-100) H 10/10/20 12:32 Hemoglobin A1c % 14.1 % (4.27-6.07) H 10/10/20 12:32 Lactic Acid 1.9 mmol/L (0.5-2.2) 10/10/20 19:23 Calcium 8.8 mg/dL (8.5-10.3) 10/24/20 05:59 Phosphorus 5.5 mg/dL (2.5-4.6) H 10/10/20 12:32 Magnesium 1.7 mg/dL (1.7-2.8) 10/19/20 05:59 Total Bilirubin 0.6 mg/dL (0.2-1.0) 10/22/20 05:36 AST 25 IU/L (10-42) 10/22/20 05:36 ALT 28 IU/L (10-60) 10/22/20 05:36 Alkaline Phosphatase 174 IU/L (42-121) H 10/22/20 05:36 Ammonia 24.2 umol/L (7-35) 10/15/20 08:32 Total Creatine Kinase 557 IU/L (22-269) H 10/11/20 04:59 Troponin I High Sens 69.0 ng/L (2.3-19.7) H* 10/15/20 01:25 B-Natriuretic Peptide 260 pg/mL (5-100) H 10/20/20 04:50 Total Protein 5.9 g/dL (6.7-8.2) L 10/22/20 05:36 Albumin 2.7 g/dL (3.2-5.5) L 10/22/20 05:36 Globulin 3.2 g/dL (2.1-4.2) 10/22/20 05:36 Albumin/Globulin Ratio 0.8 (1.0-2.2) L 10/22/20 05:36 Lipase 53 U/L (22-51) H 10/10/20 12:32 TSH 2.75 uIU/mL (0.34-5.60) 10/13/20 05:27 Nasal Adenovirus (PCR) NOT DETECTED 10/10/20 13:05 Nasal B. parapertussis DNA (PCR) NOT DETECTED 10/10/20 13:05 Nasal Coronavir 229E PCR NOT DETECTED 10/10/20 13:05 Nasal Coronavir HKU1 PCR NOT DETECTED 10/10/20 13:05 Nasal Coronavir NL63 PCR NOT DETECTED 10/10/20 13:05 Nasal Coronavir OC43 PCR NOT DETECTED 10/10/20 13:05 Nasal Enterovir/Rhinovir PCR NOT DETECTED 10/10/20 13:05 Nasal Influenza B PCR NOT DETECTED 10/10/20 13:05 Nasal Influenza A PCR NOT DETECTED 10/10/20 13:05 Nasal Parainfluen 1 PCR NOT DETECTED 10/10/20 13:05 Nasal Parainfluen 2 PCR NOT DETECTED 10/10/20 13:05 Nasal Parainfluen 3 PCR NOT DETECTED 10/10/20 13:05 Nasal Parainfluen 4 PCR NOT DETECTED 10/10/20 13:05 Nasal RSV (PCR) NOT DETECTED 10/10/20 13:05 Nasal B.pertussis DNA PCR NOT DETECTED 10/10/20 13:05 Nasal C.pneumoniae (PCR) NOT DETECTED 10/10/20 13:05 Campos Human Metapneumo PCR NOT DETECTED 10/10/20 13:05 Nasal M.pneumoniae (PCR) NOT DETECTED 10/10/20 13:05 Nasal SARS-CoV-2 (PCR) NOT DETECTED 10/10/20 13:05 Urine Opiates Screen NEGATIVE (NEGATIVE) 10/10/20 22:50 Ur Oxycodone Screen NEGATIVE (NEGATIVE) 10/10/20 22:50 Urine Methadone Screen NEGATIVE (NEGATIVE) 10/10/20 22:50 Ur Propoxyphene Screen NEGATIVE (NEGATIVE) 10/10/20 22:50 Ur Barbiturates Screen NEGATIVE (NEGATIVE) 10/10/20 22:50 Ur Tricyclics Screen NEGATIVE (NEGATIVE) 10/10/20 22:50 Ur Phencyclidine Scrn NEGATIVE (NEGATIVE) 10/10/20 22:50 Ur Amphetamine Screen NEGATIVE (NEGATIVE) 10/10/20 22:50 U Methamphetamines Scrn NEGATIVE (NEGATIVE) 10/10/20 22:50 U Benzodiazepines Scrn NEGATIVE (NEGATIVE) 10/10/20 22:50 Urine Cocaine Screen NEGATIVE (NEGATIVE) 10/10/20 22:50 U Cannabinoids Screen NEGATIVE (NEGATIVE) 10/10/20 22:50 Ethyl Alcohol < 5.0 mg/dL 10/10/20 12:32 Sepsis Event Note (H) - Evaluation Current Stage of Sepsis: Resolved Possible source of Sepsis: positive: Pulmonary, Wound - Sepsis Criteria Sepsis Criteria: Recorded Temperature greater than 38.3C or Less than 36C, R ecorded Heart Rate greater than 90 bpm, Recorded Respiratory Rate greater than 20 (as above, the hypothermia, HR, and RR could be due to extreme volume depletion)
[2020-10-26] MEDS: IPRATROPIUM/ALBUTEROL 3 ML NEB INH PRN (20:35)
[2020-10-26] MEDS: INSULIN GLARGINE 300 UNIT/3 ML PEN SUBQ SCH (21:02)
[2020-10-26] MEDS: ACETAMINOPHEN 500 MG TABLET PO PRN (21:02)
[2020-10-26] MEDS: ATORVASTATIN 40 MG TABLET PO SCH (21:03)
[2020-10-27] MEDS: SODIUM CHLORIDE FLUSH 0.9% 10 ML SYRINGE IVP SCH ×4 (03:45→23:54)
[2020-10-27] MEDS: ACETAMINOPHEN 500 MG TABLET PO PRN ×4 (03:47→20:32)
[2020-10-27] MEDS: INSULIN ASPART 300 UNIT/3 ML PEN SUBQ SCH ×7 (08:02→20:33)
[2020-10-27] MEDS: MULTIVITAMIN W/MINERALS TABLET PO SCH (08:03)
[2020-10-27] MEDS: MAGNESIUM OXIDE 400 MG TABLET PO SCH (08:04)
[2020-10-27] MEDS: ASPIRIN EC 81 MG TABLET PO SCH (09:51)
[2020-10-27] MEDS: DOCUSATE SODIUM 250 MG CAPSULE PO SCH (09:51)
[2020-10-27] MEDS: ENOXAPARIN 40 MG/0.4 ML SYRINGE SUBQ SCH (09:52)
[2020-10-27] MEDS: LACTOBACILLUS RHAMNOSUS GG CAPSULE PO SCH (09:52)
[2020-10-27] MEDS: NYSTATIN POWDER 15 GM TOP SCH ×2 (09:52→20:32)
[2020-10-27] MEDS: THIAMINE 100 MG TABLET PO SCH (09:56)
[2020-10-27] MEDS: SENNA 8.6 MG TABLET PO SCH (09:56)
[2020-10-27] MEDS: polyethylene glycoL 3350 17 GM PACKET PO SCH (09:56)
[2020-10-27] MEDS: NICOTINE 7 MG PATCH TOP SCH (09:57)
[2020-10-27] MEDS: BENZOCAINE/MENTHOL LOZENGE MM PRN (12:10)
[2020-10-27] MEDS: LIDOCAINE PATCH 5% TOP PRN (16:36)
[2020-10-27] MEDS: ATORVASTATIN 40 MG TABLET PO SCH (20:32)
[2020-10-27] MEDS: INSULIN GLARGINE 300 UNIT/3 ML PEN SUBQ SCH (20:34)
--- NOTE | 2020-10-27 21:13 | PROVIDER PROGRESS NOTE ---
Progress Note CC/Reason for follow up: Self-care deficit/self-neglect, chronic lung disease, decubiti, sepsis, congestive heart failure, respiratory failure/multiple medical problems Interval History: Mauricio Jules is a 75-year-old white male with complex background who was admitted on October 10, for details of his admission and hospital problems I refer to the chart notes. Brianne's hospital stay is prolonged due to his chronic impairment with self-neglect, self-care deficit and overall debility which makes discharge and placement challenging. Currently his medical problems are at baseline, he is awaiting placement. When I visited him this evening he was ordering chocolate ice cream, he reported no complaint or discomfort. He gave short answers to my questions, wanted to watch television and was most concerned about getting chocolate ice cream. Active issues: Debility/dementia/cognitive impairment/self-neglect/self-care deficit/ambulatory dysfunction/decubiti/need for full 24/7 care Daily care plan Awaiting placement Supportive care/ PT/OT/CM/skin care, wound care Continue current therapies for the below listed medical problems APS involved If remains hospitalized should have laboratories checked as needed or periodically as warranted by the clinical course If blood glucose remains stable might not need frequent glucose checks/might be managed on Lantus primarily Might require Lasix prn for cor pulmonale depending on the clinical course/today volume status appears near euvolemic Assessment/diagnoses/Hospital problems addressed during this admission Acute on chronic respiratory failure with hypoxia Acute component resolved/still on suppl O2/Chronic respiratory failure remains/resp status at [facility] Eitiology Multifactorial: -PNA -CHF/Cor pulmonale -Pulm HTN -COPD Acute congestive heart failure/ Volume overload; HFpEF/ RV dysfxn Resolved Echo 10/15 Nl LV size an fxn EF 65-70%, Moderately dilated RV w/ reduced systolic fxn severely dilated RA, mildly dilated LA, Mod TR, RVSP 74 mmHg; Uncontrolled diabetes mellitus with hyperglycemia Improved on current regimen A1C on admission was >14% Good glycemic control with blood glucose mostly below 200/stable on current diet Metabolic encephalopathy on admission superimposed on underlying cognitive impairment Acute encephalopathy resolved, chronic cognitive impairment remains Peripheral vascular disease Chronic 10/17 US: R SFA: mild to moderate diffuse right SFA disease without focal hemodynamically significant stenosis. LLE runoff significant for suggestive of possible significant SFA stenosis. Monophasic low distrance flow the distal runoff vessels suggesting more proximal senosis. Metabolic alkalosis Resolved Hyperkalemia Resolved Acute kidney injury Resolved Community acquired bacterial pneumonia Resolved Completed treatment on antibiotics Buttock and heel decubitis present on admissin due to prolonged time in chair Decubitis much improved w/ nursing care, and offloading Debility/self-neglect/self-care deficit/dementia/cognitive impairment/depression Last Vital Signs Temp 36.6 C 10/27/20 16:00 Pulse 99 10/27/20 16:00 Resp 20 10/27/20 16:00 BP 115/75 10/27/20 16:00 Pulse Ox 92 10/27/20 16:00 EXAM: General: Well-developed frail obese male, sitting up in bed, watching TV, comfortable without distress Respiratory: Without increased work of breathing, comfortable on supplemental oxygen, clear lungs without wheezes or crackles Abdomen: Benign, nontender, bowel tones present Lymph: Minimal pitting edema Neuro: Nonfocal Psych: Cooperative Laboratory Results - last 24 hr 10/27/20 10/27/20 10/27/20 07:24 11:11 16:34 POC Whole Bld Glucose 141 H 156 H 231 H 10/27/20 20:30 POC Whole Bld Glucose 150 H Reviewed admission notes, diagnostic work-up, laboratories, medications, vital signs, blood glucose checks, nursing and case management notes. Time: 15 minutes spent with patient care
[2020-10-28] MEDS: INSULIN ASPART 300 UNIT/3 ML PEN SUBQ SCH ×7 (08:06→20:28)
[2020-10-28] MEDS: NICOTINE 7 MG PATCH TOP SCH (08:18)
[2020-10-28] MEDS: NYSTATIN POWDER 15 GM TOP SCH ×2 (08:25→20:28)
[2020-10-28] MEDS: polyethylene glycoL 3350 17 GM PACKET PO SCH (08:26)
[2020-10-28] MEDS: ACETAMINOPHEN 500 MG TABLET PO PRN ×3 (08:27→20:26)
[2020-10-28] MEDS: MULTIVITAMIN W/MINERALS TABLET PO SCH (08:27)
[2020-10-28] MEDS: MAGNESIUM OXIDE 400 MG TABLET PO SCH (08:27)
[2020-10-28] MEDS: BENZOCAINE/MENTHOL LOZENGE MM PRN ×2 (08:27→13:48)
[2020-10-28] MEDS: ASPIRIN EC 81 MG TABLET PO SCH (08:28)
[2020-10-28] MEDS: SENNA 8.6 MG TABLET PO SCH (08:28)
[2020-10-28] MEDS: DOCUSATE SODIUM 250 MG CAPSULE PO SCH (08:28)
[2020-10-28] MEDS: LACTOBACILLUS RHAMNOSUS GG CAPSULE PO SCH (08:28)
[2020-10-28] MEDS: ENOXAPARIN 40 MG/0.4 ML SYRINGE SUBQ SCH (08:28)
[2020-10-28] MEDS: THIAMINE 100 MG TABLET PO SCH (08:29)
[2020-10-28] MEDS: SODIUM CHLORIDE FLUSH 0.9% 10 ML SYRINGE IVP SCH ×2 (08:30→16:56)
[2020-10-28] MEDS: ZINC OXIDE 20% OINT 30 GM TUBE TOP PRN (13:49)
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
[2020-10-28] MEDS: LIDOCAINE PATCH 5% TOP PRN (16:57)
--- NOTE | 2020-10-28 17:05 | XRAY Report ---
PROCEDURE: Chest 1 View X-Ray INDICATIONS: SOB TECHNIQUE: One view of the chest was acquired. COMPARISON: Chest x-ray 10/15/2019 FINDINGS: Surgical changes and devices: None. Lungs and pleura: No pleural effusions or pneumothorax. Lungs are clear. Mediastinum: Mediastinal contours appear normal. Heart size is mildly enlarged. Bones and chest wall: No suspicious bony lesions. Overlying soft tissues appear unremarkable. IMPRESSION: No acute pulmonary process. Reviewed by: Jessica Lopez MD on 10/28/2020 5:04 PM PDT Approved by: Jessica Lopez MD on 10/28/2020 5:04 PM PDT Station ID: [id number]
[2020-10-28] MEDS ORDERED: SODIUM CHLORIDE 0.65% NASAL SPRAY NAS PRN (18:20)
[2020-10-28] MEDS ORDERED: TEMAZEPAM 15 MG CAPSULE PO PRN (18:23)
[2020-10-28] MEDS: FLUTICASONE NASAL SPRAY NAS SCH (18:36)
[2020-10-28] MEDS: oxyCODONE 5 MG TABLET PO PRN (18:36)
[2020-10-28] MEDS: ATORVASTATIN 40 MG TABLET PO SCH (20:26)
[2020-10-28] MEDS: INSULIN GLARGINE 300 UNIT/3 ML PEN SUBQ SCH (20:27)
[2020-10-29] MEDS: oxyCODONE 5 MG TABLET PO PRN ×2 (04:02→19:48)
[2020-10-29] MEDS: MIN OIL/DIMETHICON/COCONUT OIL 92 GM TUBE TOP PRN (04:11)
[2020-10-29] MEDS: SODIUM CHLORIDE FLUSH 0.9% 10 ML SYRINGE IVP SCH ×4 (04:11→23:51)
[2020-10-29] MEDS: ACETAMINOPHEN 500 MG TABLET PO PRN ×3 (06:53→22:37)
[2020-10-29] MEDS: polyethylene glycoL 3350 17 GM PACKET PO SCH (07:56)
[2020-10-29] MEDS: INSULIN ASPART 300 UNIT/3 ML PEN SUBQ SCH ×7 (07:57→22:34)
[2020-10-29] MEDS: ENOXAPARIN 40 MG/0.4 ML SYRINGE SUBQ SCH (07:58)
[2020-10-29] MEDS: DOCUSATE SODIUM 250 MG CAPSULE PO SCH (07:58)
[2020-10-29] MEDS: NYSTATIN POWDER 15 GM TOP SCH ×2 (08:00→22:35)
[2020-10-29] MEDS: FLUTICASONE NASAL SPRAY NAS SCH (08:00)
[2020-10-29] MEDS: NICOTINE 7 MG PATCH TOP SCH (08:01)
[2020-10-29] MEDS: MULTIVITAMIN W/MINERALS TABLET PO SCH (08:03)
[2020-10-29] MEDS: LACTOBACILLUS RHAMNOSUS GG CAPSULE PO SCH (08:03)
[2020-10-29] MEDS: MAGNESIUM OXIDE 400 MG TABLET PO SCH (08:03)
[2020-10-29] MEDS: ASPIRIN EC 81 MG TABLET PO SCH (08:03)
[2020-10-29] MEDS: THIAMINE 100 MG TABLET PO SCH (08:03)
[2020-10-29] MEDS: SENNA 8.6 MG TABLET PO SCH (08:04)
[2020-10-29] MEDS: BENZOCAINE/MENTHOL LOZENGE MM PRN ×2 (08:04→12:15)
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
[2020-10-29] MEDS: INSULIN GLARGINE 300 UNIT/3 ML PEN SUBQ SCH (22:34)
[2020-10-29] MEDS: ATORVASTATIN 40 MG TABLET PO SCH (22:37)
[2020-10-30] MEDS: ACETAMINOPHEN 500 MG TABLET PO PRN ×2 (04:06→08:11)
[2020-10-30] MEDS: oxyCODONE 5 MG TABLET PO PRN (05:00)
[2020-10-30] MEDS: INSULIN ASPART 300 UNIT/3 ML PEN SUBQ SCH ×2 (07:47→07:48)
[2020-10-30] MEDS: ENOXAPARIN 40 MG/0.4 ML SYRINGE SUBQ SCH (07:48)
[2020-10-30] MEDS: ASPIRIN EC 81 MG TABLET PO SCH (07:49)
[2020-10-30] MEDS: THIAMINE 100 MG TABLET PO SCH (07:49)
[2020-10-30] MEDS: LACTOBACILLUS RHAMNOSUS GG CAPSULE PO SCH (07:49)
[2020-10-30] MEDS: BENZOCAINE/MENTHOL LOZENGE MM PRN (07:49)
[2020-10-30] MEDS: DOCUSATE SODIUM 250 MG CAPSULE PO SCH (07:49)
[2020-10-30] MEDS: MULTIVITAMIN W/MINERALS TABLET PO SCH (07:50)
[2020-10-30] MEDS: MAGNESIUM OXIDE 400 MG TABLET PO SCH (07:50)
[2020-10-30] MEDS: SENNA 8.6 MG TABLET PO SCH (07:51)
[2020-10-30] MEDS: NYSTATIN POWDER 15 GM TOP SCH (07:51)
[2020-10-30] MEDS: SODIUM CHLORIDE FLUSH 0.9% 10 ML SYRINGE IVP SCH (07:51)
[2020-10-30] MEDS: polyethylene glycoL 3350 17 GM PACKET PO SCH (07:51)
[2020-10-30] MEDS: FLUTICASONE NASAL SPRAY NAS SCH (07:51)
[2020-10-30] MEDS: MIN OIL/DIMETHICON/COCONUT OIL 92 GM TUBE TOP PRN (08:12)
--- NOTE | 2020-10-30 08:39 | Discharge Plan ---
"Discharge Plan for SNF / [facility] - Discharge Plan And Transition Orders Problem Reviewed?: Yes Disposition: 03 SNF DC/Xfer Condition: Stable Allergies and Adverse Reactions: Allergies Allergy/AdvReac Type Severity Reaction Status Date / Time No Known Drug Allergies Allergy Verified 10/10/20 12:36 Health Concerns: heel decubitis care and sacral skin care: continue nurse skin care, turn and reposition of pt, pt may followup with out-pt wound care as well. continue PT/OT for pt's weakness and prevention of fall continue supplement of O2 as needed for pt's hx of COPD and pulmonary HTN. Pt's left lower extremity has significant possible SFA stenosis, now pt is improving. pt may continue Aspirin and Statin, and may followup with out-pt vascular surgeon consult as needed. Plan of Treatment: as above Care Goals: Stabilization, improvement of patient's medical conditions Assessment: Discussed the care plan with the patient, answered patient questions, patient understood - SNF / [facility] Transition Orders Admit to (Facility): [facility] Under the care of (Name): medical care provider of [facility] Discharge Diagnosis: Self-care deficiency, heel and sacral decubitus, Weakness, COPD, pulmonary hypertension, uncontrolled diabetic,Chronic heart failure with preserved ejection fraction, PVD, cognitive impairment. Medicare Certification Statement: I certify that [facility] care is medically necessary on a continuing basis for any of the conditions for which she/he is receiving care during hospitalization. Notify PCP of admission and forward orders to primary provider for signature. Weight on admission and: Daily Call PCP immediately if weight increases by: 2 kg Other Notification Orders: Call PCP immediately if patient develops dyspnea, chest pain/tightness or edema. House Bowel Program: Yes Additional Bowel Program Orders: If no BM after 2 days, nurse may give M.O.M. 30ml PO PRN and/or ducolax Supp 1 CA and/or TRINA 250mg P.O., and/or senna 1-2 tabs PO. On day 3 nurse may give repeat above order until residents constipation is resolved. Annual Influenza Vaccine (between Oct 15 and May 14): Yes Two-step PPD per [facility] [phone] or approved exception documents: Yes Treatments & Other Orders: heel decubitis care and sacral skin care: continue nurse skin care, turn and reposition of pt, pt may followup with out-pt wound care as well. continue PT/OT for pt's weakness and prevention of fall. continue supplement of O2 as needed for pt's hx of COPD and pulmonary HTN. Pt's left lower extremity has significant possible SFA stenosis, now pt is improving. pt may continue Aspirin and Statin, and may followup with out-pt vascular surgeon consult as needed. Oxygen Orders: 2lpm of O2 or as needed Medication Orders: PLEASE REFER TO THE DISCHARGE MEDICATION LIST. Insulin Orders?: Yes - Medications New Prescriptions: oxyCODONE [Roxicodone] 5 mg PO Q6HR PRN #15 tablet PRN Reason: Pain Aspirin EC [Ecotrin] 81 mg PO DAILY #30 tablet Fluticasone [Flonase] 1 sprays PARTHA DAILY #1 bottle Lidocaine Patch 5% [Lidoderm Patch] 1 patch TOP DAILY PRN #5 patch PRN Reason: Pain Atorvastatin [Lipitor] 40 mg PO QPM #30 tablet Multivitamin W/Minerals [Theragran M] 1 tab PO DAILYWM #30 tablet Thiamine [Vitamin B-1] 100 mg PO DAILY #30 tablet - Diet Type: Geriatric Texture: Regular Liquids: Thin May have monthly special meal: Yes - Therapies | Activity Therapy: Evaluation | Treat if indicated: PT, OT Rehabilitation Potential: Maximize functional status Activity: Activity as Tolerated Insulin Orders - SNF Basal | Correction | Custom Orders: Diagnosis: Diabetes Initiate hypo and hyperglycemia protocols for BG <70 and BG >375. May check BG PRN for signs/symptoms of dysglycemia. Frequency of BG checks: [AC/Meal/HS] Basal Insulin: [x] Lantus 100 units / ml inject subq as follows: [17 units QPM] [] Other: [] Correction Insulin: - Select the type of insulin below [Choose: Novolog/Humalog]100 units /ml insulin inject subq per orders indicate below [] LOW DOSE [x] MODERATE DOSE [] MODERATE/HIGH DOSE [] HIGH DOSE GB UNITS GB UNITS GB UNITS GB UNITS 61-140 0 UNITS 61-140 0 UNITS 61-140 0 UNITS 61-140 0 UNITS 141-175 1 UNITS 141-175 1 UNITS 141-175 2 UNITS 141-175 3 UNITS 176-225 2 UNITS 176-225 3 UNITS 176-225 4 UNITS 176-225 5 UNITS 226-275 3 UNITS 226-275 5 UNITS 226-275 6 UNITS 226-275 7 UNITS 276-325 4 UNITS 276-325 7 UNITS 276-325 8 UNITS 276-325 9 UNITS 326-375 5 UNITS 326-375 9 UNITS 326-375 10 UNITS 326-375 11 UNITS >375 CONTACT MD >375 CONTACT MD >375 CONTACT MD >375 CONTACT MD Custom Dosing: [Choose: Novolog/Humalog] 100 units/ml Insulin inject subq as follows: GB Units 61-140 [] Units 141-175 [] Units 176-225 [] Units 226-275 [] Units 276-325 []Units 326-375 [] Units >375 Contact MD add Novolog 4 units Tid"
--- NOTE | 2020-10-30 09:03 | DISCHARGE SUMMARY ---
Discharge Summary Admit Date: 10/10/20 Discharge Date: 10/30/20 Discharging Provider: Joel Huang Primary Care Provider: micaela Mcqueen Condition at Discharge: Stable Discharge Disposition: 03 SNF DC/Xfer Discharge Facility Name: [facility] - DIAGNOSES Discharge Diagnoses with Status of Each Condition: (1) Self-care deficit pt is d/c to [facility] nurse facility for care of pt. (2) sacral decubitus ulcer and heel decubitis skin in sacral area is intact. pt has heel decubitis and improved. pt may continue skin care and followup with wound care in out-pt wound care center. (3) Weakness continue PT/OT in [facility], encourage pt keep in active and work with PT/OT (4) COPD stable, pt has 96% O2 sat on 2 liter of O2, resume home inhaler (5) Pulm HTN ECHO show RVSP 74 mmHg, pulm HTN. Continue low salt diet, Fluid restriction, followup with chart clerk as out-pt (6) Uncontrolled diabetes mellitus with hyperglycemia A1C on admission was 14.1%. prescribed Lantus, novolog for pt (7) Peripheral vascular disease pt's feet are warm, pink, has pulses. pt has no complaint now. US study show possible left lower extremity significant SFA stenosis. Continue ASA and statin, pt may consider as outpatient vascular surgeon consult if worsens (8) Cognitive impairment Poor memory persists but as his baseline. (9)chronic heart failure with preserved EF. improved and stable. pt may followup with [facility] as out-pt. - HPI History of Present Illness: refer from Ms. Gill's HPI on 10/10/20 75 yo male who lives with his son was brought by office services coordinator [facility] ([phone]) found him to be less responsive today. They come 3 x weekly Patient is minimally participative in history but can shake head yes/ no for simple symptom questions (do you hurt shakes head no) He is mostly sitting in a big chair reportedly for the last 2 months at home, generally refuses to get up such that the person bathing him can only clean the front . He has been incontinent in chair for ? days. He has had a very difficult time getting up. I spoke with Lynda the supervisor plate forming at [facility] today; She went to see the patient herself today; had not seen him directly first hand before. She reports her staff have called APS "at least 13 x but patient always sends them away. Also 911 has come in the past at their request; but "they always leave" after he (patient) tells them he is ok, and she is "glad they took him to hospital today. His son reportedly has severe pulmonary issues but his father (this patient) smokes "nonstop" and drinks pop and beer and the smoke bothers the sons health condition. Relationship reported to be not good between patient and son jack. PMH HTN on lisinopril, DM on 500 Bid metformin . Hx stroke / was at [facility] about 6 yrs ago. A care transitions nurse (?Luh?) is with patient several hours a day and helps him with his ADLs, meals. It is not clear if she gives him his medications to take or if he takes them at all. Pateinet not able to tell me if he checks sugars at all Today office services coordinator were called as he had worsening alertness over last day or 2.. Once patient lifted out of chair by office services coordinator; found to be sitting in feces. incontinent of stool for ? how long, maggot s noted on chair. sacral decubitus, and bilateral heel decubiti. VS by office services coordinator "afebrile" 126/91, 92% RA RR 22 HR 110 EKG low voltage, NSR NL axis, RBBB In the ED sl (sl hypothermic at 35.9, otherwise hemodynically stable HR 83 BP 111/93 RR 16 RA 87%. Improved to upper 90's w/ 3L NC He was minimally responsive Labs notable for extreme volume contraction H/H 19.4/62.3 ( In february was 16/ 48.8 BUN/CR 63/1.4 Glucose 452 Na 138 (corrects to ~ 143 accounting for glucose) venous gas w/ ph 7.2 Initial troponin 84.7 Total CK 819 UA SG 1.020 > 1000 glucose otherwise unremarkable Tox screen neg for ETOH _ Coronavirus PCR A cxr (note in contracted state) suggestive of retrocardiac infiltrate vs atelectasis); as above thre was no leukocytosis but elevated lactate empirically started on ceftriaxone/ azithromycin. No significant respiratory distress, no adventitious sounds on ED chest exam After 2 L NS in ED, initial lactate 3.3>> 3.2, volume continues I spoke at length with son; Jack Dad has lived w/ him x 5 years, the landlord has pretty much said dad cant come back because his room is a "biohazard". . Patient had been living in his moms house til she ; house was filthy; rats etc; he had to leave after she , then he was in a trailer that belonged to a friend of the son; While there he didnt shower x 3 years, had dogs, dog feces were even on Prasad, the dogs of the poor house conditions; Sometime after that he had the stroke ~ 6 yrs ago; was [facility] SN[facility]; patient wasnt going to go to SNF, unless son bought him cigarettes At some point ater that he got himself a hotel room, but got kicked out . Since then he has been with Jack (the son) "He will drink himself into a coma with 12 packs of pop (not sugar free)" ~ 4 yrs ago, Que's son moved out from his upstairs bedroom. Prasad somehow managed to get up stairs though poorly mobile, "and has been in that room ever since" (with the home care as above. Currently a friend of the patients keeps bringing him soda and cigarettes; son trying to get trespassing violation on her. He confirms as did Lynda above that 911 and APS have been called numerous times. - HOSPITAL COURSE Hospital Course: Patient was admitted for encephalopathy, self-care deficit. Patient developed acute respiratory failure with hypoxia, acute heart failure, pneumonia, SAVANNAH, COPD, uncontrolled diabetes with A1c 14.1 and sacral and heel decubitis After patient was treated with antibiotics, diuretics, breath treatment, Insulin, skin care, pt has significant improved. Social work was consulted for disposition. Patient was difficult to find deportation location. - ALLERGIES Allergies/Adverse Reactions: Allergies Allergy/AdvReac Type Severity Reaction Status Date / Time No Known Drug Allergies Allergy Verified 10/10/20 12:36 - MEDICATIONS Home Medications: Ambulatory Orders Medication Instructions Recorded Confirmed lisinopriL [Prinivil] 10 mg PO DAILY #30 tablet 02/20/20 metFORMIN [Glucophage] 500 mg PO BIDWM #60 tablet 02/20/20 Albuterol Sulf [Ventolin Hfa 2 puffs PO Q4H PRN 10/10/20 10/15/20 Inhaler] Budesonide/Formoterol Fumarate 1 inh PO BID 10/10/20 10/15/20 [Symbicort 160-4.5 Mcg Inhaler] Sertraline [Zoloft] 25 mg PO DAILY 10/10/20 10/15/20 Zolpidem Tartrate [Ambien] 10 mg PO QPM PRN 10/10/20 10/15/20 Aspirin EC [Ecotrin] 81 mg PO DAILY #30 tablet 10/30/20 Atorvastatin [Lipitor] 40 mg PO QPM #30 tablet 10/30/20 Fluticasone [Flonase] 1 sprays PARTHA DAILY #1 bottle 10/30/20 Lidocaine Patch 5% [Lidoderm Patch] 1 patch TOP DAILY PRN #5 patch 10/30/20 Multivitamin W/Minerals [Theragran 1 tab PO DAILYWM #30 tablet 10/30/20 M] Thiamine [Vitamin B-1] 100 mg PO DAILY #30 tablet 10/30/20 oxyCODONE [Roxicodone] 5 mg PO Q6HR PRN #15 tablet 10/30/20 - PHYSICAL EXAM AT DISCHARGE General Appearance: positive: No acute distress, Alert. negative: Lethargic Eyes Bilateral: positive: Normal inspection, No lid inflammation ENT: positive: ENT inspection nml. negative: Purulent nasal drainage Neck: positive: Nml inspection, Trachea midline. negative: Tracheal deviation Respiratory: positive: Chest non-tender, No respiratory distress. negative: Wheezes Cardiovascular: positive: Regular rate & rhythm, No murmur. negative: Tachy cardia, Bradycardia, Systolic murmur, Diastolic murmur Peripheral Pulses: positive: 2+ Abdomen: positive: Non-tender, Nml bowel sounds. negative: Tenderness Skin: positive: Warm, Dry, Other (skin intact in sacral area, ulcer at left heel). negative: Cyanosis, Diaphoresis Extremities: positive: Non-tender. negative: Calf tenderness Neurologic/Psychiatric: positive: Motor nml, Mood/affect nml. negative: Weakness, Sensory loss, Facial droop, Slurred/abnml speech, Depressed mood/affect - LABS Result Diagrams: 10/22/20 05:36 10/24/20 05:59 - SEPSIS Current Stage of Sepsis: Resolved Possible source of Sepsis: Pulmonary, Wound Sepsis Criteria: Recorded Temperature greater than 38.3C or Less than 36C, Recorded Heart Rate greater than 90 bpm, Recorded Respiratory Rate greater than 20 (as above, the hypothermia, HR, and RR could be due to extreme volume depletion) - FOLLOW UP Follow Up: heel decubitis care and sacral skin care: continue nurse skin care, turn and reposition of pt, pt may followup with out-pt wound care as well. continue PT/OT for pt's weakness and prevention of fall continue supplement of O2 as needed for pt's hx of COPD and pulmonary HTN. Pt's left lower extremity has significant possible SFA stenosis, now pt is improving. pt may continue Aspirin and Statin, and may followup with out-pt vascular surgeon consult as needed. - TIME SPENT Time Spent in Discharge (Minutes): 30
[2020-10-30 12:14] VITALS: BP 136/79
== END 2020-10-30 10:10 | DRG 871 ==
LOC: EDUNIT# → ED 11:25 → UNDOADMIN 15:00 → MS2 15:00
PROVIDERS: ADMIT Nurse Practitioner; ATTEND Nurse Practitioner Gerontology
DX: A41.9 Sepsis, unspecified organism (principal); J18.9 Pneumonia, unspecified organism; J96.01 Acute respiratory failure with hypoxia; I50.33 Acute on chronic diastolic (congestive) heart failure; N17.9 Acute kidney failure, unspecified; E87.2 Acidosis; G93.40 Encephalopathy, unspecified; R41.89 Other symptoms and signs involving cognitive functions and awareness; E87.3 Alkalosis; R53.83 Other fatigue; F17.210 Nicotine dependence, cigarettes, uncomplicated; L89.312 Pressure ulcer of right buttock, stage 2; L89.622 Pressure ulcer of left heel, stage 2; L89.612 Pressure ulcer of right heel, stage 2; L89.152 Pressure ulcer of sacral region, stage 2; E11.65 Type 2 diabetes mellitus with hyperglycemia; E86.9 Volume depletion, unspecified; R00.0 Tachycardia, unspecified; R09.02 Hypoxemia; E66.9 Obesity, unspecified; L98.499 Non-pressure chronic ulcer of skin of other sites with unspecified severity; Z79.84 Long term (current) use of oral hypoglycemic drugs; R60.0 Localized edema; J44.9 Chronic obstructive pulmonary disease, unspecified; R74.8 Abnormal levels of other serum enzymes; Z72.89 Other problems related to lifestyle; R77.8 Other specified abnormalities of plasma proteins; Z51.5 Encounter for palliative care; R62.7 Adult failure to thrive; E11.51 Type 2 diabetes mellitus with diabetic peripheral angiopathy without gangrene; I27.20 Pulmonary hypertension, unspecified; I11.0 Hypertensive heart disease with heart failure; R53.1 Weakness; F09 Unspecified mental disorder due to known physiological condition; Z86.73 Personal history of transient ischemic attack (TIA), and cerebral infarction without residual deficits; R68.0 Hypothermia, not associated with low environmental temperature; L98.9 Disorder of the skin and subcutaneous tissue, unspecified; Z68.32 Body mass index [BMI] 32.0-32.9, adult; R41.82 Altered mental status, unspecified; E86.0 Dehydration; R65.20 Severe sepsis without septic shock; F03.90 Unspecified dementia, unspecified severity, without behavioral disturbance, psychotic disturbance, mood disturbance, and anxiety; E87.5 Hyperkalemia; R53.81 Other malaise; I27.81 Cor pulmonale (chronic); R15.9 Full incontinence of feces
CPT/HCPCS: 36415; 36556; 70200; 70450; 71045; 71260; 74177; 80048; 80053; 80306; 82140; 82550; 82803; 83036; 83605; 83690; 83735; 83880; 84100; 84443; 84484; 85025; 85027; 85610; 87040; 87631; 93005; 93306; 93925; 93970; 94640; 96365; 96368; 97110; 97162; 97165; 97530; 97535; 99222; 99285; 99291; A6250; A9270; G0480; J1650; J1815; J3411; J7040; Q9967; 0202U; 80320